=== PATIENT | female | born 1940 | race Caucasian/White ===

== ENCOUNTER 2017-10-25 18:12 | Observation (INO) | payer MEDICARE ==
[2017-10-25] MEDS ORDERED: NS 0.9% 1000 ML* 1,000 ML IV ONE (19:31)
[2017-10-25] MEDS ORDERED: methylPREDNISolone 125 MG* 2 ML VIAL IV ONE (19:31)
--- NOTE | 2017-10-25 19:33 | ED ---
Abdominal Pain/Female - HPI Summary HPI Summary: Pt is a 77 y/o female who presents to [facility] c/o constipation. She states she has lower abdomen discomfort, and feels constipated. Pt had two hard BMs today. Pt states she has had intermittent constipation since her colonoscopy two years ago, but has been worse the past few weeks. She denies any vomiting. She also has chronic SOB due to her COPD, and still smokes. - History of Current Complaint Chief Complaint: EDAbdPain Stated Complaint: CONSTIPATED/DIFFICULTY BREATHING Time Seen by Provider: 10/25/17 19:23 Hx Obtained From: Patient Onset/Duration: Gradual Onset, Lasting Weeks - 203, Still Present Timing: Intermittent Episode Lasting Severity Currently: None Pain Intensity: 0 Pain Scale Used: 0-10 Numeric Location: Discrete At: RLQ, Discrete At: LLQ Radiates: No Character: Other: - Discomfort Alleviating Factor(s): Nothing Associated Signs and Symptoms: Positive: Constipation, Other: - SOB. Negative: Nausea, Vomiting Allergies/Adverse Reactions: Allergies Allergy/AdvReac Type Severity Reaction Status Date / Time iron Allergy Unknown Verified 10/25/17 19:55 Reaction Details latex Allergy Unknown Verified 10/25/17 19:55 Reaction Details Penicillins Allergy Unknown Verified 10/25/17 19:55 Reaction Details PMH/Surg Hx/FS Hx/Imm Hx Endocrine/Hematology History: Reports: Hx Thyroid Disease - no meds Denies: Hx Anemia Cardiovascular History: Reports: Hx Hypercholesterolemia, Hx Hypertension, Hx Rheumatic Fever - as a child, Other Cardiovascular Problems/Disorders - LBBB Respiratory History: Reports: Hx Chronic Obstructive Pulmonary Disease (COPD), Other Respiratory Problems/Disorders GI History: Denies: Hx Jaundice Musculoskeletal History: Reports: Other Musculoskeletal History - RIght humerus fracture , apr 2015 Sensory History: Reports: Hx Cataracts - both eyes, Hx Contacts or Glasses - glasses Denies: Hx Hearing Aid Opthamlomology History: Reports: Hx Cataracts - both eyes, Hx Contacts or Glasses - glasses - Surgical History Surgery Procedure, Year, and Place: Bilat. breast benign biopsy. tonsillectomy. appendectomy with hysterectomy. left carotid endarerectomy 2003 Hx Anesthesia Reactions: No Infectious Disease History: No Infectious Disease History: Denies: Traveled Outside the [place] in Last 30 Days - Family History Known Family History: Positive: Hypertension, Other - [place] - Social History Alcohol Use: Occasionally Alcohol Amount: a beer a day maybe Hx Substance Use: No Substance Use Type: Reports: None Hx Tobacco Use: Yes Smoking Status (MU): Heavy Every Day Tobacco Smoker Amount Used/How Often: smoking since 18 years old 10-24 cigarettes a day Review of Systems Positive: Shortness Of Breath Positive: Other - Constipation. Negative: Vomiting, Nausea All Other Systems Reviewed And Are Negative: Yes Physical Exam - Summary Physical Exam Summary: Appearance: Well appearing, no pain distress Skin: warm, dry, reflects adequate perfusion Head/face: normal Eyes: EOMI, MAXIME ENT: normal Neck: supple, non-tender Respiratory: bilateral wheezes, breath sounds present Cardiovascular: RRR, pulses symmetrical Abdomen: RLQ and LLQ tenderness, soft Bowel: present Musculoskeletal: normal, strength/ROM intact Neuro: normal, sensory motor intact, A&Ox3 Triage Information Reviewed: Yes Vital Signs On Initial Exam: Initial Vitals Temp Pulse Resp BP Pulse Ox 98.4 F 111 20 91/55 93 10/25/17 18:33 10/25/17 18:33 10/25/17 18:33 10/25/17 18:33 10/25/17 18:33 Vital Signs Reviewed: Yes Diagnostics - Vital Signs Vital Signs Temp Pulse Resp BP Pulse Ox 10/25/17 18:33 98.4 F 111 20 91/55 93 - Laboratory Result Diagrams: 10/25/17 20:12 10/25/17 20:12 Lab Statement: Any lab studies that have been ordered have been reviewed, and results considered in the medical decision making process. - Radiology CXR Xray Interpretation: No Acute Changes - No acute infiltrate. Pending official radiology report. Radiology Interpretation Completed By: ED Physician - EKG 20:26 Cardiac Rate: Tachycardia - 106 bpm EKG Rhythm: Sinus Rhythm EKG Interpretation: LBBB Abdominal Pain Fem Course/Dx - Course Course Of Treatment: Pt is a 77 y/o female who presents to [facility] c/o constipation and lower abdomen discomfort. Pt states she has had intermittent constipation since her colonoscopy two years ago, but has been worse the past few weeks. She denies any vomiting. She also has chronic SOB due to her COPD, and still smokes. A physical exam revealed RLQ and LLQ tenderness and bilateral wheezes. A CXR was negative. An EKG revealed tachycardia at a rate of [address] A/P. Dx are COPD, abdominal pain, and constipation. Pt will be signed out to Dr. Allison. - Diagnoses Differential Diagnosis: Positive: Bowel Obstruction, Diverticulitis, Urinary Tract Infection Provider Diagnoses: COPD (chronic obstructive pulmonary disease), Abdominal pain, Constipation Discharge - Sign-Out/Discharge Documenting (check all that apply): Sign-Out Patient Signing out patient TO: Marquez Allison - Discharge Plan Referrals: Robbie Alexander MD [Primary Care Provider] - - Attestation Statements Document Initiated by Scribe: Yes Documenting Scribe: Renetta Robbins Provider For Whom Scribe is Documenting (Include Credential): Cesar Tripp MD Scribe Attestation: Renetta Del [place], scribed for Cesar Tripp MD on 10/25/17 at 2131. Scribe Documentation Reviewed: Yes Provider Attestation: The documentation as recorded by the Renetta spence accurately reflects the service I personally performed and the decisions made by me, Cesar Tripp MD
[2017-10-25] MEDS: Albuterol/Ipratropium NEB.SOL* Albuterol 2.5 MG/Ipratropium 0.5 MG 3 ML INH ONE (20:19)
[2017-10-25] MEDS ORDERED: Albuterol/Ipratropium NEB.SOL* Albuterol 2.5 MG/Ipratropium 0.5 MG 3 ML ONE (20:21)
[2017-10-25 20:26] LABS: Hematocrit 44 % (35-47); Hemoglobin 14.7 g/dl (12.0-16.0); Mean Corpuscular HGB Conc 33 g/dl (31-36); Mean Corpuscular Hemoglobin 32 pg (27-31); Mean Corpuscular Volume 98 fL (80-97); Mean Platelet Volume 8.2 um3 (7.4-10.4); Platelet Count 422 10^3/ul (150-450); Red Blood Count 4.53 10^6/ul (4.00-5.40); Red Cell Distribution Width 15 % (10.5-15); White Blood Count 15.3 10^3/ul (3.5-10.8)
[2017-10-25 20:35] LABS: INR 0.81 (0.77-1.02)
[2017-10-25 20:38] LABS: EGFR Non-African American 72.9 (>60)
[2017-10-25 20:58] LABS: ABS Basophils 0.1 10^3/ul (0-0.2); ABS Eosinophils 0 10^3/ul (0-0.6); ABS Lymphocytes 1.9 10^3/ul (1.0-4.8); ABS Monocytes 1.6 10^3/ul (0-0.8); ABS Neutrophils 11.6 10^3/ul (1.5-7.7); ABS Nucleated RBC 0 10^3/ul; Eosinophil % 0.2 % (0-6); Lymphocyte % 12.7 % (25-47); Nucleated Red Blood Cells % 0
--- NOTE | 2017-10-25 22:16 | ED ---
Progress - Progress Note Progress Note: Patient was signed out to Dr. Marquez Allison via Dr. Tripp, awaiting CT A/P, pending disposition on 10/25/[address] A/P: IMPRESSION: 1. No acute findings in the abdomen or pelvis. 2. Colonic diverticulosis without evidence for diverticulitis. 3. High-density foci in the renal collecting systems bilaterally, which may represent nonobstructive renal calculi or contrast material. 4. Fatty liver. ED PHYSICIAN REVIEWED THIS RADIOLOGY REPORT. Re-Evaluation - Re-Evaluation First Eval Re-Evaluation Time: 02:35 Change: Unchanged Comment: Patient still has wheezing. HR is 110, O2 saturation of 92%. Course/Dx - Course Course Of Treatment: A 77 y/o female presents to ED c/o constipation. A CT A/P revealed 1. No acute findings in the abdomen or pelvis. 2. Colonic diverticulosis without evidence for diverticulitis. 3. High-density foci in the renal collecting systems bilaterally, which may represent nonobstructive renal calculi or contrast material. 4. Fatty liver. Blood work and UA was also done. In the ED course, the patient recieved Duoneb, Omnipaque, Solu-Medrol , Magnesium Sulfate, Ventolin and IV fluids. During reevaluation, the patient still has wheezing. HR is 110, O2 saturation of 92%. Patient care was discussed with hospitalist, Dr. Petit, who accepts patient for admission. Patient will be admitted with a diagnosis of COPD, dehydration and abdominal pain. Patient is agreeable with this plan. - Diagnoses Provider Diagnoses: COPD (chronic obstructive pulmonary disease), Abdominal pain, Dehydration - Provider Notifications Discussed Care Of Patient With: Laura Petit Time Discussed With Above Provider: 02:43 Instructed by Provider To: Other - Accepts patient for admission. Discharge - Sign-Out/Discharge Documenting (check all that apply): Patient Departure - ADMIT - Discharge Plan Condition: Stable Disposition: ADMITTED TO [facility] Referrals: Robbie Alexander MD [Primary Care Provider] - - Attestation Statements Document Initiated by Scribe: Yes Documenting Scribe: Socrates Garcia Provider For Whom Scribe is Documenting (Include Credential): Marquez Allison Scribjorge Attestation: ISocrates, scribed for Marquez Allison on 10/26/17 at 0243.
[2017-10-25] MEDS ORDERED: Iohexol 300* (CONTRAST) 10 ML SDV IV ONE (22:26)
--- NOTE | 2017-10-26 00:08 | RAD ---
EXAM: CT Abdomen and Pelvis With Intravenous Contrast CLINICAL HISTORY: 77 years old, female; Abdominal pain; Flank; Left lower quadrant (llq); Prior surgery; Surgery date: 1-6 months; Surgery type: Appendectomy; Additional info: Llq tenderness/diverticulitis TECHNIQUE: Axial computed tomography images of the abdomen and pelvis with intravenous contrast. All CT scans at this facility use at least one of these dose optimization techniques: automated exposure control; mA and/or kV adjustment per patient size (includes targeted exams where dose is matched to clinical indication); or iterative reconstruction. Coronal and sagittal reformatted images were created and reviewed. CONTRAST: 63 mL of OMNIPAQUE 300 administered intravenously. COMPARISON: No relevant prior studies available. FINDINGS: Lung bases: There are centrilobular emphysematous changes in the lung bases. Heart: No cardiomegaly or pericardial effusion is noted. ABDOMEN: Liver: There is fatty infiltration of the liver, with increased fatty liver deposition adjacent to the falciform ligament. There is a 5 mm cyst in the superior lateral segment 2 of the left hepatic lobe. The contour of the liver is smooth. No hepatomegaly is noted. Gallbladder and bile ducts: No calcifications are seen in the gallbladder to suggest calculi. There is no gallbladder wall thickening, pericholecystic fluid, or pericholecystic inflammatory changes. No dilation of the intrahepatic or extrahepatic bile ducts is noted. Pancreas: Normal. The main pancreatic duct is normal in caliber. Spleen: Normal. No splenomegaly is noted. Adrenals: Normal. Kidneys and ureters: There is a 7 mm simple cyst in the superior pole of the right kidney and the simple cyst in the inferior pole of the right kidney. There are high-density foci in the renal collecting systems bilaterally, which may represent renal calculi or contrast material. No stones are noted in the ureters. There is no hydronephrosis or hydroureter. Stomach and bowel: There is colonic diverticulosis without evidence for diverticulitis. There is no evidence for a bowel obstruction, colitis, pneumatosis intestinalis, intussusception, volvulus, or perforated viscus. PELVIS: Appendix: The appendix has been removed. Bladder: The distended urinary bladder is normal in appearance. No stones or masses are seen in the bladder. The contour of the bladder is normal. Reproductive: The uterus has been removed. The ovaries are unremarkable. ABDOMEN and PELVIS: Intraperitoneal space: No free air or free fluid. Bones/joints: The imaged bony structures are intact. There is no suspicious osteolytic or osteoblastic lesion. There are degenerative changes in the lumbar spine and both sacroiliac joints. The bones have a demineralized appearance. Soft tissues: Unremarkable. There is no hernia. Vasculature: The abdominal aorta is normal in caliber. There are extensive atherosclerotic calcifications. Lymph nodes: No lymphadenopathy. IMPRESSION: 1. No acute findings in the abdomen or pelvis. 2. Colonic diverticulosis without evidence for diverticulitis. 3. High-density foci in the renal collecting systems bilaterally, which may represent nonobstructive renal calculi or contrast material. 4. Fatty liver.
[2017-10-26 02:14] LABS: Urine Appearance Clear; Urine Blood 1+ (Negative); Urine Color Straw; Urine Ketones 2+ (Negative); Urine Protein Negative (Negative); Urine Red Blood Cell Trace(0-2/hpf) (Absent); Urine Specific Gravity 1.026 (1.010-1.030); Urine Urobilinogen Negative (Negative); Urine White Blood Cell Absent (Absent)
[2017-10-26] MEDS ORDERED: Magnesium Sulfate 2 GM IV* 2 GM/50 ML BAG IVPB ONE (02:41)
[2017-10-26] MEDS ORDERED: Albuterol 2.5 MG/3 ML NEB.SOL* (0.083%) INH PRN ×2 (02:41→03:09)
[2017-10-26] MEDS ORDERED: NS 0.9% 1000 ML* 1,000 ML IV ONE (02:44)
[2017-10-26] MEDS: Albuterol/Ipratropium NEB.SOL* Albuterol 2.5 MG/Ipratropium 0.5 MG 3 ML INH ONE (03:01)
[2017-10-26] MEDS ORDERED: Acetaminophen TAB* 325 MG PO PRN (03:09)
[2017-10-26] MEDS ORDERED: Ondansetron INJ* 2 MG/ML VIAL IV PRN (03:09)
[2017-10-26] MEDS ORDERED: NS 0.9% 1000 ML* 1,000 ML IV SCH (03:15)
[2017-10-26] MEDS ORDERED: Heparin VIAL(*) 5000 UNITS/ML VIAL (FIVE THOUSAND) SUBCUT SCH (06:00)
[2017-10-26] MEDS ORDERED: amLODIPine TAB* 5 MG PO SCH (06:00)
[2017-10-26 06:36] LABS: ABS Basophils 0 10^3/ul (0-0.2); ABS Eosinophils 0 10^3/ul (0-0.6); ABS Lymphocytes 0.4 10^3/ul (1.0-4.8); ABS Monocytes 0.1 10^3/ul (0-0.8); ABS Neutrophils 6.2 10^3/ul (1.5-7.7); ABS Nucleated RBC 0 10^3/ul; Eosinophil % 0 % (0-6); Hematocrit 39 % (35-47); Hemoglobin 13.5 g/dl (12.0-16.0); Lymphocyte % 5.4 % (25-47); Mean Corpuscular HGB Conc 34 g/dl (31-36); Mean Corpuscular Hemoglobin 33 pg (27-31); Mean Corpuscular Volume 97 fL (80-97); Nucleated Red Blood Cells % 0; Platelet Count 334 10^3/ul (150-450); Red Blood Count 4.09 10^6/ul (4.00-5.40); Red Cell Distribution Width 14 % (10.5-15); White Blood Count 6.7 10^3/ul (3.5-10.8)
[2017-10-26 06:50] LABS: EGFR Non-African American 97.2 (>60)
[2017-10-26] MEDS: Albuterol/Ipratropium NEB.SOL* Albuterol 2.5 MG/Ipratropium 0.5 MG 3 ML INH SCH ×2 (06:59→08:06)
[2017-10-26 07:47] VITALS: BP 132/48
--- NOTE | 2017-10-26 07:56 | PN ---
Subjective - Subjective Reason for Note: Discharge Note History: DISCHARGE SUMMARY I have reviewed her presentation with Brooklyn Ha and with the ED note. She has had increasing constipation for the past few weeks and came to the ED as she was unable to pass stool. She has found this has also exacerbated her COPD. She has not had a URI recently. She notes that the hot weather is bothering her. However, she continues to smoke. \\ The CT scan prep caused several explosive bowel movements and she now has an empty colon. She no longer has any pain in her abdomen and is hungry. She received breathing treatments/steroids and is not dyspneic this morning. She is afebrile, she coughs when she is lying flat but is not bringing up more sputum than usual and has no hemoptysis Active Problems: Active Problems COPD with acute exacerbation (Acute) J44.1 Constipation (Acute) K59.00 Emphysema lung (Acute) J43.9 Current Medications: Current Medications Acetaminophen (Tylenol Tab*) 650 mg PO Q4H PRN PRN Reason: FEVER/PAIN Albuterol (Ventolin 2.5 Mg/3 Ml Neb.Meera*) 2.5 mg INH Q20M PRN PRN Reason: SHORTNESS OF BREATH Albuterol (Ventolin 2.5 Mg/3 Ml Neb.Meera*) 2.5 mg INH Q2H PRN PRN Reason: SOB/WHEEZING Albuterol/Ipratropium (Duoneb (Albuterol 2.5 Mg/Ipratropium 0.5 Mg)) 1 neb INH Q4H [facility] Last Admin: 10/26/17 06:59 Dose: Not Given Amlodipine Besylate (Norvasc Tab*) 10 mg PO 0600 [facility] Last Admin: 10/26/17 04:30 Dose: 10 mg Aspirin (Aspirin Ec Tab*) 81 mg PO 1000 [facility] Docusate Sodium (Colace Cap*) 100 mg PO BID [facility] Heparin Sodium (Porcine) (Heparin Vial(*)) 5,000 units SUBCUT Q8HR [facility] Last Admin: 10/26/17 04:30 Dose: 5,000 units Hydrochlorothiazide (Hydrodiuril Tab*) 12.5 mg PO 1000 [facility] Mometasone Furoate/Formoterol Fumar (Dulera 200/5 Mdi*) 2 puff INH BID [facility] Ondansetron HCl (Zofran Inj*) 4 mg IV Q6H PRN PRN Reason: NAUSEA Prednisone (Deltasone Tab*) 60 mg PO DAILY [facility] Ramipril (Altace Cap*) 10 mg PO QPM [facility] Home Medications: Home Medications Medication Instructions Recorded Confirmed Type Cholecalciferol (Vitamin D3) 1,000 unit PO 1000 06/02/15 10/25/17 History [Vitamin D3] Cyanocobalamin (Vitamin B-12) 500 mcg SL EVERY OTHER DAY 06/02/15 10/25/17 History [B-12] Hydrochlorothiazide TAB* 12.5 mg PO 1000 06/02/15 10/25/17 History [Hydrodiuril TAB*] Levalbuterol HFA INHALER* [Xopenex 1 puff INH Q6H PRN 06/02/15 10/25/17 History Hfa Inhaler*] Lovastatin [Altoprev] 20 mg PO 1000 06/02/15 10/25/17 History Ramipril CAP* [Altace CAP*] 10 mg PO QPM 06/02/15 10/25/17 History Amlodipine Besylate [Norvasc 10 mg 10 mg PO 0600 12/22/16 10/25/17 History tab] Misc Natural Products [Lutein 20] 1 cap PO 1400 12/22/16 10/25/17 History Aspirin [Aspirin 81 MG TAB] 81 mg PO 1000 01/05/17 10/25/17 History Allergies: Allergies Allergy/AdvReac Type Severity Reaction Status Date / Time iron Allergy Unknown Verified 10/25/17 19:55 Reaction Details latex Allergy Unknown Verified 10/25/17 19:55 Reaction Details Penicillins Allergy Unknown Verified 10/25/17 19:55 Reaction Details Objective - Vital Signs Vital Signs: Vital Signs 10/25/17 10/25/17 10/25/17 18:33 19:26 19:27 Temperature 98.4 F Pulse Rate 111 118 Respiratory 20 20 28 Rate Blood Pressure 91/55 107/90 (mmHg) O2 Sat by Pulse 93 94 Oximetry 10/25/17 10/25/17 10/25/17 20:02 20:23 20:26 Temperature Pulse Rate 110 102 105 Respiratory 9 20 25 Rate Blood Pressure 187/87 184/95 (mmHg) O2 Sat by Pulse 92 100 100 Oximetry 10/25/17 10/25/17 10/25/17 21:05 21:06 21:26 Temperature Pulse Rate 117 108 Respiratory 8 23 22 Rate Blood Pressure 181/105 160/78 (mmHg) O2 Sat by Pulse 92 93 Oximetry 10/25/17 10/25/17 10/25/17 21:59 22:00 22:26 Temperature Pulse Rate 103 103 98 Respiratory 26 22 23 Rate Blood Pressure 159/133 153/76 (mmHg) O2 Sat by Pulse 91 94 88 Oximetry 10/25/17 10/25/17 10/25/17 22:56 23:00 23:56 Temperature Pulse Rate 99 100 97 Respiratory 27 22 22 Rate Blood Pressure 151/70 142/83 (mmHg) O2 Sat by Pulse 91 92 89 Oximetry 10/26/17 10/26/17 10/26/17 00:00 00:02 00:26 Temperature Pulse Rate 117 Respiratory 28 23 27 Rate Blood Pressure 178/83 (mmHg) O2 Sat by Pulse 87 Oximetry 10/26/17 10/26/17 10/26/17 00:56 01:00 01:26 Temperature Pulse Rate 100 102 106 Respiratory 21 14 22 Rate Blood Pressure 143/71 136/80 (mmHg) O2 Sat by Pulse 92 90 92 Oximetry 10/26/17 10/26/17 10/26/17 01:56 02:00 02:26 Temperature Pulse Rate 103 94 108 Respiratory 33 22 24 Rate Blood Pressure 159/80 153/82 (mmHg) O2 Sat by Pulse 94 93 94 Oximetry 10/26/17 10/26/17 10/26/17 02:56 03:00 03:01 Temperature Pulse Rate 111 111 98 Respiratory 32 21 16 Rate Blood Pressure 157/86 (mmHg) O2 Sat by Pulse 93 92 99 Oximetry 10/26/17 10/26/17 10/26/17 03:18 03:26 04:10 Temperature 98.1 F 97.5 F Pulse Rate 98 100 Respiratory 16 20 18 Rate Blood Pressure 157/86 167/77 123/53 (mmHg) O2 Sat by Pulse 98 94 Oximetry 10/26/17 10/26/17 04:12 06:17 Temperature 97.5 F 98.2 F Pulse Rate 100 95 Respiratory 18 17 Rate Blood Pressure 123/53 132/48 (mmHg) O2 Sat by Pulse 94 92 Oximetry - Intake and Output Intake and Output: Intake & Output 10/23/17 10/24/17 10/25/17 10/26/17 11:59 11:59 11:59 11:59 Intake Total 2290 Balance 2290 Weight 104 lb Intake: IV Fluids 0 Oral 240 Other: Estimated Void Large Date of Last Bowel 10/26/16 Movement # Bowel Movements 1 Estimated Stool Amount Medium # Voids 1 ADLs: Meal Record Start: 10/26/17 04: 07 Freq: DAILY@0900,1400,1800 Status: Active Protocol: Created 10/26/17 04:07 System (Rec: 10/26/17 04:07 System [id number]) Intake and Output Start: 10/25/17 18: 40 Freq: Status: Active Protocol: Created 10/25/17 18:40 System (Rec: 10/25/17 18:40 System [id number]) Intake and Output Start: 10/26/17 04: 07 Freq: DAILY@0600,1400,2200 Status: Active Protocol: Created 10/26/17 04:07 System (Rec: 10/26/17 04:07 System [id number]) Document 10/26/17 06:00 [id number] (Rec: 10/26/17 06:29 [id number]) - Physical Exam General Physical Exam Comment: She is warm and well perfused. She is not in any respiratory distress. She is breathing room air. General: No Cyanosis, No Anemia, No Jaundice, No Clubbing Lungs and Chest: Yes: Chest Expansion Full - over expanded, Chest Expansion Symetrica, Percussion Note Resonant - hyperresonant. No: Vessicular Breath Sounds - emphysematous breath sounds, Crackles, Wheezes, Respiratory Distress, Use of Accessory Muscles Heart Rate and Rhythm: Regular - hyperdynamic Additional Cardiovascular: Yes: Normal Heart Sounds. No: Heart Murmur, Pedal Edema Abdominal Exam: Yes: Soft, Bowel Sounds Present. No: Distention, Abdominal Mass , Abdominal Tenderness, Guarding, Rebound Tenderness - Neuro Orientation: A/O x3 Psychiatric: Anxious Speech: Normal Results - Results Lab Results: Laboratory Results - last 24 hr 10/25/17 10/25/17 10/25/17 20:12 20:12 20:12 WBC 15.3 H RBC 4.53 Hgb 14.7 Hct 44 MCV 98 H MCH 32 H MCHC 33 RDW 15 Plt Count 422 MPV 8.2 Neut % (Auto) 75.7 Lymph % (Auto) 12.7 L [place] % (Auto) 10.6 H Eos % (Auto) 0.2 Baso % (Auto) 0.8 Absolute Neuts (auto) 11.6 H Absolute Lymphs (auto) 1.9 Absolute Monos (auto) 1.6 H Absolute Eos (auto) 0 Absolute Basos (auto) 0.1 Absolute Nucleated RBC 0 Nucleated RBC % 0 INR (Anticoag Therapy) 0.81 APTT 28.4 Sodium 137 Potassium 4.1 Chloride 96 L Carbon Dioxide 20 L Anion Gap 21 H BUN 20 Creatinine 0.77 Est GFR ( Amer) 88.2 Est GFR (Non-Af Amer) 72.9 BUN/Creatinine Ratio 26.0 H Glucose 97 Lactic Acid Calcium 10.7 H Total Bilirubin 1.00 AST 31 ALT 19 Alkaline Phosphatase 74 Troponin I 0.03 B-Natriuretic Peptide Total Protein 7.8 Albumin 4.5 Globulin 3.3 Albumin/Globulin Ratio 1.4 Lipase 20 Urine Color Urine Appearance Urine pH Ur Specific [place] Urine Protein Urine Ketones Urine Blood Urine Nitrate Urine Bilirubin Urine Urobilinogen Ur Leukocyte Esterase Urine WBC (Auto) Urine RBC (Auto) Urine Bacteria Urine Glucose 10/25/17 10/26/17 10/26/17 20:12 01:50 03:35 WBC RBC Hgb Hct MCV MCH MCHC RDW Plt Count MPV Neut % (Auto) Lymph % (Auto) [place] % (Auto) Eos % (Auto) Baso % (Auto) Absolute Neuts (auto) Absolute Lymphs (auto) Absolute Monos (auto) Absolute Eos (auto) Absolute Basos (auto) Absolute Nucleated RBC Nucleated RBC % INR (Anticoag Therapy) APTT Sodium Potassium Chloride Carbon Dioxide Anion Gap BUN Creatinine Est GFR ( Amer) Est GFR (Non-Af Amer) BUN/Creatinine Ratio Glucose Lactic Acid 1.3 Calcium Total Bilirubin AST ALT Alkaline Phosphatase Troponin I B-Natriuretic Peptide 171 H Total Protein Albumin Globulin Albumin/Globulin Ratio Lipase Urine Color Straw Urine Appearance Clear Urine pH 5.0 Ur Specific [place] 1.026 Urine Protein Negative Urine Ketones 2+ A Urine Blood 1+ A Urine Nitrate Negative Urine Bilirubin Negative Urine Urobilinogen Negative Ur Leukocyte Esterase Negative Urine WBC (Auto) Absent Urine RBC (Auto) Trace(0-2/hpf) Urine Bacteria Absent Urine Glucose Negative 10/26/17 10/26/17 06:09 06:09 WBC 6.7 RBC 4.09 Hgb 13.5 Hct 39 MCV 97 MCH 33 H MCHC 34 RDW 14 Plt Count 334 MPV 8.0 Neut % (Auto) 93.3 H Lymph % (Auto) 5.4 L [place] % (Auto) 1.2 Eos % (Auto) 0 Baso % (Auto) 0.1 Absolute Neuts (auto) 6.2 Absolute Lymphs (auto) 0.4 L Absolute Monos (auto) 0.1 Absolute Eos (auto) 0 Absolute Basos (auto) 0 Absolute Nucleated RBC 0 Nucleated RBC % 0 INR (Anticoag Therapy) APTT Sodium 136 Potassium 3.6 Chloride 101 Carbon Dioxide 23 Anion Gap 12 H BUN 12 Creatinine 0.60 Est GFR ( Amer) 117.6 Est GFR (Non-Af Amer) 97.2 BUN/Creatinine Ratio 20.0 Glucose 225 H Lactic Acid Calcium 9.0 Total Bilirubin AST ALT Alkaline Phosphatase Troponin I B-Natriuretic Peptide Total Protein Albumin Globulin Albumin/Globulin Ratio Lipase Urine Color Urine Appearance Urine pH Ur Specific [place] Urine Protein Urine Ketones Urine Blood Urine Nitrate Urine Bilirubin Urine Urobilinogen Ur Leukocyte Esterase Urine WBC (Auto) Urine RBC (Auto) Urine Bacteria Urine Glucose Radiology Results: Patient Name: ZACH HA Medical Record#: [id number] Ordering Physician: Cesar Tripp MD Acct.#: [id number] : 1940 Age: 77 Sex: F Location: EMERGENCY DEPARTMENT Exam Date: 10/25/171932 ADM Status: REG ER Order Information: CT ABD/PEL W Accession Number: [id number] CPT: 22066 EXAM: CT Abdomen and Pelvis With Intravenous Contrast CLINICAL HISTORY: 77 years old, female; Abdominal pain; Flank; Left lower quadrant (llq); Prior surgery; Surgery date: 1-6 months; Surgery type: Appendectomy; Additional info: Llq tenderness/diverticulitis TECHNIQUE: Axial computed tomography images of the abdomen and pelvis with intravenous contrast. All CT scans at this facility use at least one of these dose optimization techniques: automated exposure control; mA and/or kV adjustment per patient size (includes targeted exams where dose is matched to clinical indication); or iterative reconstruction. Coronal and sagittal reformatted images were created and reviewed. CONTRAST: 63 mL of OMNIPAQUE 300 administered intravenously. COMPARISON: No relevant prior studies available. FINDINGS: Lung bases: There are centrilobular emphysematous changes in the lung bases. Heart: No cardiomegaly or pericardial effusion is noted. ABDOMEN: Liver: There is fatty infiltration of the liver, with increased fatty liver deposition adjacent to the falciform ligament. There is a 5 mm cyst in the superior lateral segment 2 of the left hepatic lobe. The contour of the liver is smooth. No hepatomegaly is noted. Gallbladder and bile ducts: No calcifications are seen in the gallbladder to suggest calculi. There is no gallbladder wall thickening, pericholecystic fluid, or pericholecystic inflammatory changes. No dilation of the intrahepatic or extrahepatic bile ducts is noted. Pancreas: Normal. The main pancreatic duct is normal in caliber. Spleen: Normal. No splenomegaly is noted. Adrenals: Normal. Kidneys and ureters: There is a 7 mm simple cyst in the superior pole of the right kidney and the simple cyst in the inferior pole of the right kidney. There are high-density foci in the renal collecting systems bilaterally, which may represent renal calculi or contrast material. No stones are noted in the ureters. There is no hydronephrosis or hydroureter. Stomach and bowel: There is colonic diverticulosis without evidence for diverticulitis. There is no evidence for a bowel obstruction, colitis, pneumatosis intestinalis, intussusception, volvulus, or perforated viscus. PELVIS: Appendix: The appendix has been removed. Bladder: The distended urinary bladder is normal in appearance. No stones or masses are seen in the bladder. The contour of the bladder is normal. This report is only to be considered final once signed by the Provider(s) as displayed in the "<Electronically Signed by >" field (s). Absence of a signature indicates the report is in a draft status and still needs to be finalized. In the event this document was created by someone other than the signing Provider, the individual initiating the document will be listed in the "Entered by:" or "Dictated by:" sarkar. 1 of 2 [facility] Patient Name:ZACH HA MR:[id number] : 1940 Reproductive: The uterus has been removed. The ovaries are unremarkable. ABDOMEN and PELVIS: Intraperitoneal space: No free air or free fluid. Bones/joints: The imaged bony structures are intact. There is no suspicious osteolytic or osteoblastic lesion. There are degenerative changes in the lumbar spine and both sacroiliac joints. The bones have a demineralized appearance. Soft tissues: Unremarkable. There is no hernia. Vasculature: The abdominal aorta is normal in caliber. There are extensive atherosclerotic calcifications. Lymph nodes: No lymphadenopathy. IMPRESSION: 1. No acute findings in the abdomen or pelvis. 2. Colonic diverticulosis without evidence for diverticulitis. 3. High-density foci in the renal collecting systems bilaterally, which may represent nonobstructive renal calculi or contrast material. 4. Fatty liver. <Electronically signed by Kip Feldman MD in OV> 10/26/177 Dictated By: Kip Feldman MD Dictated Date/Time: 10/26/177 Transcribed Date/Time: Copy to: CC:Robbie Alexander MD; Cesar Tripp MD Imaging - [facility] - [facility] - [facility] [address] [place] [address] ph [phone]) ph ([phone]) ph ([phone]) Report of CXR unavailable I reviewed images - emphysematous chest-Xray (AP) with some interstitial markings. No pneumonia. Unchanged from previous film 04/26/15 Assessment - Problem List Assessment: Patient Problems COPD with acute exacerbation (Acute) Constipation (Acute) Emphysema lung (Acute) Essential hypertension (Chronic) H/O carotid endarterectomy (Chronic) Hypercholesteremia (Chronic) Left bundle branch block (Chronic) Tobacco abuse (Chronic) Plan: Constipation (Acute) The preparation for the CT abdo/pelvis acted as a cathartic and she now has an empty colon. I discussed a bowel regiment - psyllium 1 tbs bid and miralax 17 gram if she has not had a BM for 24 hours. There is no evidence of any acute abdominal pathology COPD with acute exacerbation (Acute) She has an exaerbation of her COPD. This may be due to the hot/humid weather. I am sending her home on a reducing schedule of prednisone: Prednisone 40 mg 2 days, 20 mg 2 days, 10 mg 2 days, 5 mg 2 days then stop. Emphysema lung (Acute) This is exacerbated and likely will be life-limiting. Tobacco abuse (Chronic) I counseled her about tobacco cessation and suggested a Day target to stop altogether. I counseled for 5 mins on this Essential hypertension (Chronic) ongoing H/O carotid endarterectomy (Chronic) Hypercholesteremia (Chronic) Left bundle branch block (Chronic) I discussed the above with the patient and I am discharging her home.
--- NOTE | 2017-10-26 08:07 | RAD ---
INDICATION: Short of breath COMPARISON: April 25, 2015 TECHNIQUE: An AP portable view obtained at 1945 hours is submitted. FINDINGS: Bones/Soft Tissues: There are no acute bony findings. Cardiomediastinal: The cardiomediastinal silhouette is normal. Lungs: There is hyperinflation with mild chronic interstitial changes Pleura: There are no pleural effusions. There is minor biapical scarring Other: None IMPRESSION: HYPERINFLATION. NO ACTIVE DISEASE. R0
[2017-10-26] MEDS ORDERED: Docusate CAP* 100 MG PO SCH (09:00)
[2017-10-26] MEDS ORDERED: predniSONE TAB* 20 MG PO SCH (09:00)
[2017-10-26] MEDS ORDERED: Mometasone/Formoter 200/5 MDI INH SCH (09:00)
[2017-10-26] MEDS ORDERED: Aspirin EC TAB* 81 MG TAB.EC PO SCH (10:00)
[2017-10-26] MEDS ORDERED: Hydrochlorothiazide TAB* 25 MG PO SCH (10:00)
--- NOTE | 2017-10-26 12:34 | HP ---
CC: Dr. Robbie Alexander* HISTORY AND PHYSICAL: DATE OF ADMISSION: 10/26/17. PRIMARY CARE PROVIDER: Dr. Robbie Alexander. ATTENDING PHYSICIAN WHILE IN THE HOSPITAL: Laura Petit MD * (report dictated by Aashish Castellanos NP). CHIEF COMPLAINT: 1. Lower abdominal pain. 2. Shortness of breath. HISTORY OF PRESENT ILLNESS: Mrs. Armstrong is a 77-year-old female patient, she carries a history of COPD, hypertension, hyperlipidemia, and history of diverticulosis, complications of diverticular bleed previously. She is coming into the ED today. She says ever since having a diverticular bleed, she has had trouble with her bowels intermittently. She says, however, over the weekend she has been having hard stools. She has been having had difficulty going, she has been straining. Nothing seems to be helping. She has had some lower abdominal cramping. She had no blood in the stool, no tarry stools that she said every time she went it was small amount. Subsequently, she has noted though over the weekend too that she has had progressive worsening shortness of breath. She feels that it is probably from her straining so much. She tried to have a good bowel movement. She says the pain and the discomfort was getting worse. She was very concerned because she was not having a bowel movement. She was also getting short of breath. She had been coughing, but really not bringing up anything. No fevers or chills. No chest pain. She says that she has been noticing that she was more and more short of breath particularly with exertion. So, she came into the ED today to be evaluated. She says the cramping was mostly in her abdominal area. She says she is feeling better now, though after drinking p.o. contrast for her CT scan, which she got in the ER and has had 4 bowel movements since being down here. However, it was noted that despite breathing treatment she was continuing to have some expiratory wheezing. We were asked to evaluate for admission. PAST MEDICAL HISTORY: Significant for: 1. COPD. 2. Hypertension. 3. Hyperlipidemia. 4. Diverticulosis. 5. Diverticular disease. PAST SURGICAL HISTORY: 1. She has had a hysterectomy. 2. Appendectomy and tonsillectomy. 3. Left carotid endarterectomy. MEDICATIONS: Home medications include: 1. Amlodipine 10 mg p.o. daily. 2. Lovastatin 20 mg p.o. daily. 3. Xopenex 1 puff inhaler q.6 hours as needed. 4. Hydrochlorothiazide 12.5 mg p.o. daily. 5. B12 500 mcg sublingual every other day. 6. Vitamin D3 1000 units p.o. daily. 7. Aspirin 81 mg daily. 8. Altace 10 mg daily. 9. Lutein 1 capsule p.o. daily. ALLERGIES TO MEDICATIONS: Include IRON, LATEX, PENICILLIN. FAMILY HISTORY: Her mother had a history of breast cancer and father had a history of bladder cancer. SOCIAL HISTORY: She is a continued smoker. She is smoking about a pack a day. She does have a shot of whisky at night. She has been smoking for about 60 years. Surrogate decision maker is her niece, Kaykay. REVIEW OF SYSTEMS: There is no documented fever. She is denying having any significant weight change. There was no double vision. She denies having any ear discharges. No rhinorrhea. There is no sore throat or thyroid enlargement. She denied having any chest pain. There is no orthopnea. There is no nocturnal dyspnea. There is no nausea, no vomiting, no dysuria, no frequency, no seizure, no loss of conscious, no pruritus, and no skin ulcerations. Review of 14 systems completed, all others negative. PHYSICAL EXAMINATION GENERAL: At this time, Mrs. Armstrong is a 77-year-old female patient. She is chronically ill appearing. She is sitting in the ED stretcher. She does not appear to be in any acute distress. VITAL SIGNS: Blood pressure 157/86, pulse of 110, respirations 24, O2 saturation is 94%, temperature when she presented was 98.4. HEENT: Head: Atraumatic, normocephalic. Eyes: EOMs are intact. Sclerae anicteric and not pale. Throat: Oral mucosa appears to be dry. No oropharyngeal erythema. NECK: Supple. LUNGS: Diminished in the bases. She did have expiratory wheezes in the bases. She had equal diaphragmatic expansion. HEART: Sounds S1, S2. She is tachycardic. ABDOMEN: Soft, flat, nontender. Bowel sounds were present. EXTREMITIES: Pulses were 2+ throughout. She had no peripheral edema. She is moving all four extremities with 5/5 strength. NEUROLOGIC: The patient is awake. She is alert. She is oriented x3. She had no gross focal deficits. SKIN: Intact. DIAGNOSTIC STUDIES/LAB DATA: Labs today revealed a WBC of 15.3, RBC of 4.53, hemoglobin 14.7, hematocrit of 44, and platelet count of 422. The INR was 0.81. PTT of 28.4. Sodium was 137, potassium 4.1, chloride of 96, bicarb 20. Her BUN was 20, creatinine 0.77, glucose of 97, calcium was 9.7. Looking back, she has been elevated previously. Total bilirubin 1.0, AST 31, ALT 19, alk phos 74, troponin 0.03, BNP 171, albumin of 4.5, lipase normal. Urine was obtained showed 3+ ketones, 1+ blood. She had abdomen and pelvis CT obtained today, which revealed, impression, no acute finding of the abdomen and pelvis. Colonic diverticulosis without evidence of diverticulitis, high density foci in the renal collecting systems bilaterally, which may represent nonobstructing calculi or contrast material for fatty liver. She had an EKG today, which showed sinus tachycardia with a left bundle-branch block. She has had that previously. Heart rate today was 106. We look back to the previous EKG, it appears to be unchanged. Divorce Attorney rate is slower. She did have a chest x-ray obtained today. Under my impression , I do not appreciate any infiltrates or effusions. She did have findings consistent with COPD. Old medical records reviewed. ASSESSMENT AND PLAN: Mrs. Armstrong is a 77-year-old female patient coming into the emergency department today with complaints of lower abdominal pain. She was feeling constipated over the last couple of days and has progressively worsening shortness of breath. She will be admitted under observatory status for: 1. Constipation. This appears to be resolved now. She has had 4 bowel movements. I will continue her on Colace 100 mg p.o. b.i.d. I will continue to monitor. CT abdomen was benign. 2. Chronic obstructive pulmonary disease with exacerbation. Again, she was wheezing on exam down here in the ER. She required another additional treatment. So, I will continue with q.4 hour DuoNeb p.r.n. albuterol. I have ordered 60 of prednisone daily, Dulera, holding off on antibiotics at this point , as there is no infiltrate on exam and her CT of abdomen and pelvis was negative. I will just get sputum culture if possible and I will get Legionella and Streptococcus pneumoniae antigen. I will also check blood cultures and lactic acid. 3. Element of systemic inflammatory response syndrome. Again, I do note that she is tachycardic, but she is not hypotensive. She is not having any altered mental status. There are no signs of end-organ damage. I do note that she does have elevated white count. She has had this previously though my plan would be to obtain culture her. If she spikes fever, start her on antibiotics. Then, I am going to go ahead and hydrate the patient and we will continue to follow her. 4. Hypertension. Continue medications as prescribed. 5. Hyperlipidemia. Continue her lovastatin. 6. Diverticulosis. She follows with PCP. 7. DVT prophylaxis. I have ordered heparin subcu. 8. Code status. She is a full code. 9. Fluids, electrolyte, nutrition. She can have a regular diet. TIME SPENT: Time spent on the admission, 60 minutes, greater than half the time spent [id number] with the patient, obtaining my history and physical, other half time spent going over the plan of care with the patient and implementing the plan of care. I discussed the plan of care with my attending, Dr. Petit, she is in agreement. AASHISH CASTELLANOS NP [id number]/[facility] #: [id number] MTDGlenn
[2017-10-26] MEDS ORDERED: Ramipril CAP* 10 MG PO SCH (18:00)
== END 2017-10-26 11:00 | disposition home or self-care (01) ==
LOC: ED 18:12 → MED 10-26 03:06
PROVIDERS: ADMIT Pediatrics; ATTEND Internal Medicine
DX: J44.1 Chronic obstructive pulmonary disease with (acute) exacerbation (principal); R10.30 Lower abdominal pain, unspecified; K59.00 Constipation, unspecified; E86.0 Dehydration; J43.9 Emphysema, unspecified; R06.02 Shortness of breath; I10 Essential (primary) hypertension; E78.5 Hyperlipidemia, unspecified; K57.90 Diverticulosis of intestine, part unspecified, without perforation or abscess without bleeding; Z79.82 Long term (current) use of aspirin; F17.210 Nicotine dependence, cigarettes, uncomplicated; Z88.0 Allergy status to penicillin
CPT/HCPCS: 36415; 71045; 74177; 80048; 80053; 81003; 81015; 83605; 83690; 83880; 84484; 85025; 85610; 85730; 87040; 87070; 87205; 87899; 93005; 94640; 96374; 99284; A9270-GY; G0378; J1644; J2930; J3475; J7512; Q9967

== ENCOUNTER 2017-12-03 19:45 | Inpatient (IN) | payer MEDICARE ==
--- NOTE | 2017-12-03 20:38 | ED ---
Back Pain - HPI Summary HPI Summary: The patient is a 77 y/o F presenting to [facility] with a chief complaint of sudden onset bilateral lower back pain starting yesterday. She has never had this back pain before, and the aching pain does not radiate. The pain, which is currently rated 8/10 in severity, is aggravated by coughing and bending, and is alleviated by sitting at rest. She denies any other musculoskeletal or abdominal pain, but she does report chronic right shoulder pain. She additionally c/o SOB from COPD exacerbation, which started from smoking; she is still a current smoker. She had a recent Abd/Pel CT in September without any evidence of acute disease. She is worried for CA because her boyfriend had a similar sudden onset of back pain that resulted in CA. She is currently taking a steroid medication for her COPD for a week. No hx of cardiac or GI disease. - History of Current Complaint Chief Complaint: EDShortnessOfBreath Stated Complaint: BACK PAIN/DIFF BREATHING Time Seen by Provider: 12/03/17 20:27 Hx Obtained From: Patient Onset/Duration: Sudden Onset, Lasting Hours - starting yesterday, Still Present Onset/Duration: Started Hours Ago, Still Present Timing: Lasting Hours Severity Initially: Moderate Severity Currently: Moderate Pain Intensity: 8 Pain Scale Used: 0-10 Numeric Character: Aching Aggravating Symptom(s): Bending, Cough Alleviating Symptom(s): Rest, Position - sitting Associated Signs And Symptoms: Positive: Other - SOB. Negative: Abdominal Pain Full Body (No Head): 1 - bilateral lower back pain - Allergies/Home Medications Allergies/Adverse Reactions: Allergies Allergy/AdvReac Type Severity Reaction Status Date / Time iron Allergy Unknown Verified 12/03/17 19:55 Reaction Details latex Allergy Unknown Verified 12/03/17 19:55 Reaction Details Penicillins Allergy Unknown Verified 12/03/17 19:55 Reaction Details PMH/Surg Hx/FS Hx/Imm Hx Endocrine/Hematology History: Reports: Hx Thyroid Disease - no meds Denies: Hx Diabetes, Hx Anemia Cardiovascular History: Reports: Hx Hypercholesterolemia, Hx Hypertension, Hx Rheumatic Fever - as a child, Other Cardiovascular Problems/Disorders - LBBB Respiratory History: Reports: Hx Chronic Obstructive Pulmonary Disease (COPD), Other Respiratory Problems/Disorders GI History: Denies: Hx Jaundice History: Denies: Hx Renal Disease Musculoskeletal History: Reports: Other Musculoskeletal History - RIght humerus fracture , apr 2015 Sensory History: Reports: Hx Cataracts - both eyes, Hx Contacts or Glasses - glasses, Hx Deafness, Hx Hearing Aid Opthamlomology History: Reports: Hx Cataracts - both eyes, Hx Contacts or Glasses - glasses - Surgical History Surgery Procedure, Year, and Place: Bilat. breast benign biopsy. tonsillectomy. appendectomy with hysterectomy. left carotid endarerectomy 2003 Hx Anesthesia Reactions: No Infectious Disease History: No Infectious Disease History: Denies: Traveled Outside the [place] in Last 30 Days - Family History Known Family History: Positive: Hypertension, Other - CA - Social History Alcohol Use: None Alcohol Amount: a beer a day maybe Hx Substance Use: No Substance Use Type: Reports: None Hx Tobacco Use: Yes Smoking Status (MU): Heavy Every Day Tobacco Smoker Type: Cigarettes Amount Used/How Often: smoking since 18 years old 10-24 cigarettes a day Have You Smoked in the Last Year: Yes Review of Systems Positive: Shortness Of Breath Positive: Other - bilateral lower back pain All Other Systems Reviewed And Are Negative: Yes Physical Exam - Summary Physical Exam Summary: Appearance: Well-appearing, Well-nourished, lying in bed comfortably Skin: Warm, dry, no obvious rash Eyes: sclera anicteric, no conjunctival pallor ENT: mucous membranes moist, pharynx appears normal Neck: Supple, nontender Respiratory: Clear to auscultation, no signs of respiratory distress Cardiovascular: Normal S1, S2. No murmurs. Normal distal pulses in tibial and radial bilaterally. Abdomen: Soft, nontender, normal active bowel sounds present Musculoskeletal: Strength/ROM Intact, tenderness to palpation in the lower back Neurological: A&Ox3, awake and alert, mentation is normal, speech is fluent and appropriate Psychiatric: affect is normal, does not appear anxious or depressed Triage Information Reviewed: Yes Vital Signs On Initial Exam: Initial Vitals Temp Pulse Resp BP Pulse Ox 97.8 F 115 22 150/62 89 12/03/17 19:51 12/03/17 19:51 12/03/17 19:51 12/03/17 19:51 12/03/17 19:51 Vital Signs Reviewed: Yes Diagnostics - Vital Signs Vital Signs Temp Pulse Resp BP Pulse Ox 12/03/17 19:51 97.8 F 115 22 150/62 89 - Laboratory Result Diagrams: 12/04/17 00:14 12/04/17 00:14 Lab Statement: Any lab studies that have been ordered have been reviewed, and results considered in the medical decision making process. - EKG 00:54 Cardiac Rate: Tachycardia - 102 BPM EKG Rhythm: Sinus Tachycardia EKG Interpretation: LBBB. Back Pain Course/Dx - Course Course Of Treatment: This is a 77-year-old persistent smoker with COPD who comes in with complaints of lower back pain and worsening dyspnea. Her back pain does not appear to be anything serious, but on ambulating her she became quite dyspneic, solano, and dropped her saturations into the mid to low 80s. I suspect that her COPD is flaring, and she is not well enough to be treated at home. She will be admitted to the hospital. - Diagnoses Provider Diagnoses: COPD exacerbation, Low back pain - Provider Notifications Discussed Care Of Patient With: Tarun Pozo Time Discussed With Above Provider: 23:00 Instructed by Provider To: Other - I consulted with Dr. Pozo, who accepts the patient for admission to [facility] for further care. Discharge - Sign-Out/Discharge Documenting (check all that apply): Patient Departure - Patient will be admitted to [facility] for further care. - Discharge Plan Condition: Good Disposition: ADMITTED TO [facility] - Billing Disposition and Condition Condition: GOOD Disposition: Admitted to [facility] - Attestation Statements Document Initiated by Nohemi: Yes Documenting Scribe: Deisi Rene Provider For Whom Nohemi is Documenting (Include Credential): Dr. Yeyo Montoya MD Scribe Attestation: Eliane, Deisi Rene scribed for Dr. Yeyo Montoya MD on 12/04/17 at 0140. Scribe Documentation Reviewed: Yes Provider Attestation: The documentation as recorded by the Deisi spence accurately reflects the service I personally performed and the decisions made by me, Dr. Yeyo Montoya MD
[2017-12-03] MEDS ORDERED: methylPREDNISolone 125 MG* 2 ML VIAL IV ONE (21:00)
[2017-12-03] MEDS ORDERED: Albuterol/Ipratropium NEB.SOL* Albuterol 2.5 MG/Ipratropium 0.5 MG 3 ML INH ONE (21:01)
[2017-12-03] MEDS ORDERED: cefTRIAXone(*) 1 GM in NS 0.9% 50 ML* 50 ML IVPB ONE (23:07)
[2017-12-04 00:25] LABS: ABS Basophils 0 10^3/ul (0-0.2); ABS Eosinophils 0 10^3/ul (0-0.6); ABS Lymphocytes 0.5 10^3/ul (1.0-4.8); ABS Monocytes 0.1 10^3/ul (0-0.8); ABS Neutrophils 11.6 10^3/ul (1.5-7.7); ABS Nucleated RBC 0 10^3/ul; Eosinophil % 0.2 % (0-6); Hematocrit 44 % (35-47); Hemoglobin 14.9 g/dl (12.0-16.0); Lymphocyte % 4.2 % (25-47); Mean Corpuscular HGB Conc 34 g/dl (31-36); Mean Corpuscular Hemoglobin 32 pg (27-31); Mean Corpuscular Volume 96 fL (80-97); Mean Platelet Volume 8.5 um3 (7.4-10.4); Nucleated Red Blood Cells % 0; Platelet Count 358 10^3/ul (150-450); Red Blood Count 4.62 10^6/ul (4.00-5.40); Red Cell Distribution Width 14 % (10.5-15); White Blood Count 12.2 10^3/ul (3.5-10.8)
[2017-12-04] MEDS ORDERED: Acetaminophen TAB* 325 MG PO PRN (00:36)
[2017-12-04 00:43] LABS: EGFR Non-African American 112.2 (>60)
[2017-12-04] MEDS ORDERED: Albuterol/Ipratropium NEB.SOL* Albuterol 2.5 MG/Ipratropium 0.5 MG 3 ML INH SCH ×2 (01:00→07:00)
[2017-12-04] MEDS ORDERED: Albuterol/Ipratropium NEB.SOL* Albuterol 2.5 MG/Ipratropium 0.5 MG 3 ML ONE (01:12)
[2017-12-04] MEDS: Enoxaparin(*) 40 MG/0.4 ML SYR SUBCUT SCH (02:42)
[2017-12-04] MEDS: methylPREDNISolone SOD 40 MG* 1 ML VIAL IV SCH ×3 (02:42→16:06)
[2017-12-04] MEDS: Azithromycin IV(*) 500 MG in NS 0.9% 250 ML* 250 ML IVPB SCH (02:42)
[2017-12-04] MEDS: amLODIPine TAB* 5 MG PO SCH (05:53)
[2017-12-04] MEDS: Cyanocobalamin TAB* 500 MCG PO SCH (08:32)
[2017-12-04] MEDS: Aspirin EC TAB* 81 MG TAB.EC PO SCH (08:32)
[2017-12-04] MEDS: Atorvastatin* 10 MG TAB PO SCH (08:32)
[2017-12-04] MEDS: Hydrochlorothiazide TAB* 25 MG PO SCH (08:33)
[2017-12-04] MEDS: Cholecalciferol TAB* 1000 UNITS PO SCH (08:33)
--- NOTE | 2017-12-04 09:00 | RAD ---
INDICATION: Dyspnea. History of COPD. Tobacco use. COMPARISON: October 25, 2017 TECHNIQUE: Dual energy PA and routine lateral views of the chest were obtained. REPORT: Elevated lung volumes and both diffuse mild prominence of the interstitial markings and patchy rarefaction of the mid to upper lung zone interstitial markings. Bilateral apical pleural-parenchymal scarring. No suspicious focal pulmonary lesion, compelling alveolar consolidation, pleural effusion, pneumothorax. Negative for cardiomegaly. Prominent central pulmonary vasculature with peripheral attenuation. Chronic RIGHT humeral neck fracture. IMPRESSION: #. Stigmata of advanced chronic obstructive pulmonary disease and emphysema with probable pulmonary arterial hypertension. #. No evidence for pneumonia. #. Negative for pulmonary edema. R1
--- NOTE | 2017-12-04 09:07 | RAD ---
Indication: Low back pain. Suspect compression fracture. Comparison: October 25, 2017 CT. Technique: AP and lateral views lumbar sacral spine. Report: Alignment is anatomic. No cortical disruption or trabecular impaction to indicate a vertebral body fracture. Multilevel degenerative spondylosis and facet joint osteoarthritis. Disc space narrowing is severe at L5-S1 as on the prior exam. Unremarkable soft tissue contours. Vascular calcifications. IMPRESSION: #. Negative for fracture. R1
[2017-12-04] MEDS ORDERED: Albuterol/Ipratropium NEB.SOL* Albuterol 2.5 MG/Ipratropium 0.5 MG 3 ML INH PRN (09:37)
[2017-12-04] MEDS: NF:Umeclidin/Vilant 62.5 MDI 62.5/25 mcg 14 INH ELLIPTA DEVICE INH SCH (09:54)
--- NOTE | 2017-12-04 12:12 | RAD ---
Indication: Low back pain. Question kidney stones. Comparison: October 25, 2017 CT. Technique: Renal ultrasound. Report: Normal morphology 10.1 x 4.7 x 4.1 cm RIGHT kidney and 10.4 x 5.3 x 4.8 cm LEFT kidney. Normal bilateral renal cortical echogenicity. No conspicuous stones, focal renal lesions, or hydronephrosis. IMPRESSION: #. Negative renal ultrasound.
[2017-12-04] MEDS: Ramipril CAP* 10 MG PO SCH (16:06)
--- NOTE | 2017-12-04 16:40 | HP ---
CC: Dr. Alexander ADMISSION HISTORY AND PHYSICAL: DATE OF ADMISSION: 12/04/17 CHIEF COMPLAINT: Back pain. HISTORY OF PRESENT ILLNESS: Ms. Armstrong is a 77-year-old woman with a history of COPD, who presente d to the emergency department this evening complaining of bilateral lower back pain for 2 days. The pain is quite severe, it limited her walking. She also reports dyspnea on exertion, which has slowly worsened in the last 2 months. She was on oral steroids for 1 week back in September according to her through her primary care doctor. She has been using her levalbuterol as needed with some relief, but continues to have a productive cough above her baseline in the last few days. She denies any chest pain, denies any hemoptysis, denies any fevers. The patient was concerned about her low back pain be cause her partner developed sudden onset of low back pain a few years ago and on cancer a few we eks later. Review of her chart shows that she had a CT abdomen and pelvis on October 25 during her previous visit to this hospital where she was kept overnight for COPD exacerbation and constipation. At that time, the CT showed no neoplasm, no spinal fracture, and some possible kidney stones. In th e emergency department this evening, she was reassured for her back and was assessed for discharge, b ut she could not walk more than 20 feet without collapsing into a chair. We were asked to admit her for COPD exacerbation as well as back pain. PAST MEDICAL HISTORY: Includes COPD as above. She also has hypertension, left bundle-branch block, hyperlipidemia, history of diverticular bleed. PAST SURGICAL HISTORY: Carotid endarterectomy on the left, hysterectomy, and appendectomy. MEDICATIONS: On admission: 1. Norvasc 10 mg p.o. q. day. 2. Aspirin 81 mg p.o. q. day. 3. Vitamin D 1000 units p.o. q. day. 4. Vitamin B12 of 500 mcg sublingual every evening. 5. Hydrochlorothiazide 12.5 mg p.o. q.a.m. 6. Xopenex inhaler 1 to 2 puffs q.6 hours p.r.n. wheezing. 7. Lovastatin 20 mg p.o. q.p.m. 8. Ramipril 10 mg p.o. q.p.m. ALLERGIES: IRON, LATEX, and PENICILLIN. FAMILY HISTORY: Notable for father of bladder cancer and mother of breast cancer. SOCIAL HISTORY: She is retired from the [employer]. She is . She has no children. Her surrogate will be Kaykay, her niece. She continues to smoke a pack per day. She drinks alcohol about 1 drink per day. No recreational drugs. REVIEW OF SYSTEMS: The patient denies any fever. She has had anorexia for 1 day. She also reports w eight loss in the last 2 months of over 10 pounds. The patient denies any chest pain or palpitations . The patient denies any hemoptysis, but does have shortness of breath and cough. The patient denie s any nausea, vomiting, or diarrhea. She does have low back pain. Remainder of her 14-point review of systems is negative other than mentioned in the HPI. PHYSICAL EXAMINATION GENERAL: She is alert, in no acute distress. VITAL SIGNS: Temperature is 36.6, pulse 97 to 115, respirations 26, blood pressure is 173/74, O2 sat is 89% to 99% on room air. HEENT: Head is normocephalic, atraumatic. Sclerae anicteric. Pupils are equal, round, reactive to light and accommodation. Oropharynx is moist. No lesions. NECK: No JVD. No carotid bruits. No thyromegaly. LUNGS: Diminished throughout. No wheezes or rales. HEART: Tachycardic, regular, no murmurs. ABDOMEN: Soft, nontender. Positive bowel sounds. No hepatosplenomegaly. There is bilateral CVA te nderness. EXTREMITIES: No peripheral edema. Dorsalis pedis pulses 1+ bilaterally. NEUROLOGIC: Cranial nerves II through XII are intact. Motor strength is 5/5 throughout. Deep tendo n reflexes are symmetric. DIAGNOSTIC STUDIES/LAB DATA: Sodium 137, potassium 3.6, chloride 97, bicarb 25, BUN 8, creatinine 0 .53, glucose 110, calcium 10.3. Troponin 0.01. White count 12.2, hemoglobin 14.9, hematocrit 44.7, platelets of 358. EKG is pending. Chest x-ray is with hyperinflation without infiltrates. Lumbar spine films pending. ASSESSMENT AND PLAN: 1. This is a 77-year-old woman presenting with dyspnea on exertion, chronic obstructive pulmonary di sease exacerbation. She will be admitted to medical floor and have oxygen to keep her saturations ab ove 92% as well as intravenous steroids to address inflammation in the lungs. We will also treat pos sible pneumonia that could be missed on chest x-ray with ceftriaxone and azithromycin. 2. Her low back pain in the differential may include a compression fracture or kidney stones versus muscle spasm or axial back pain due to spondylosis. The patient will have x-ray of her lumbar spine to assess for compression fractures and she will have renal ultrasound when available to assess for k idney stones. She can have physical therapy in the hospital to help her with ambulation and back manjula n. 3. For hypertension, we will continue her current medication. 4. For her chronic obstructive pulmonary disease, she should be on inhaled long- acting methyl choli nergic agent as well as long-acting beta agonist in addition to her p.r.n. levalbuterol. 5. Code status is full, but she would not want to have prolonged intubation or dependence on machine s or chemotherapy or tube feeding. 6. DVT prophylaxis will be accomplished with subcutaneous Lovenox. [id number]/[facility] #: [id number]
[2017-12-05] MEDS: methylPREDNISolone SOD 40 MG* 1 ML VIAL IV SCH ×2 (01:38→08:32)
[2017-12-05] MEDS: cefTRIAXone(*) 1 GM in NS 0.9% 50 ML* 50 ML IVPB SCH (01:38)
[2017-12-05] MEDS: Enoxaparin(*) 40 MG/0.4 ML SYR SUBCUT SCH (01:38)
[2017-12-05] MEDS: Azithromycin IV(*) 500 MG in NS 0.9% 250 ML* 250 ML IVPB SCH (02:26)
[2017-12-05] MEDS: amLODIPine TAB* 5 MG PO SCH (06:35)
[2017-12-05 06:42] LABS: Hematocrit 41 % (35-47); Hemoglobin 13.7 g/dl (12.0-16.0); Mean Corpuscular HGB Conc 33 g/dl (31-36); Mean Corpuscular Hemoglobin 32 pg (27-31); Mean Corpuscular Volume 96 fL (80-97); Mean Platelet Volume 8.8 um3 (7.4-10.4); Platelet Count 327 10^3/ul (150-450); Red Blood Count 4.29 10^6/ul (4.00-5.40); Red Cell Distribution Width 14 % (10.5-15); White Blood Count 28.2 10^3/ul (3.5-10.8)
[2017-12-05 06:54] LABS: EGFR Non-African American 132.1 (>60)
[2017-12-05] MEDS: NF:Umeclidin/Vilant 62.5 MDI 62.5/25 mcg 14 INH ELLIPTA DEVICE INH SCH (08:04)
[2017-12-05] MEDS: Hydrochlorothiazide TAB* 25 MG PO SCH (08:32)
[2017-12-05] MEDS: Cholecalciferol TAB* 1000 UNITS PO SCH (08:32)
[2017-12-05] MEDS: Atorvastatin* 10 MG TAB PO SCH (08:32)
[2017-12-05] MEDS: Aspirin EC TAB* 81 MG TAB.EC PO SCH (08:33)
[2017-12-05] MEDS: guaiFENesin ER TAB 600 MG PO SCH ×2 (10:43→22:00)
[2017-12-05] MEDS: Potassium Chlor TAB* 20 MEQ TAB.ER PO SCH ×2 (10:52→22:00)
[2017-12-05] MEDS: Psyllium PAK PO SCH ×2 (10:52→22:03)
[2017-12-05] MEDS: Ramipril CAP* 10 MG PO SCH (16:46)
[2017-12-06] MEDS: cefTRIAXone(*) 1 GM in NS 0.9% 50 ML* 50 ML IVPB SCH (01:35)
[2017-12-06] MEDS: Enoxaparin(*) 40 MG/0.4 ML SYR SUBCUT SCH ×2 (01:40→23:59)
[2017-12-06] MEDS: Azithromycin IV(*) 500 MG in NS 0.9% 250 ML* 250 ML IVPB SCH (02:28)
[2017-12-06] MEDS: amLODIPine TAB* 5 MG PO SCH (07:17)
[2017-12-06] MEDS: NF:Umeclidin/Vilant 62.5 MDI 62.5/25 mcg 14 INH ELLIPTA DEVICE INH SCH (07:33)
--- NOTE | 2017-12-06 08:31 | PN ---
Subjective - Subjective Reason for Note: Progress Note History: I have reviewed Carol Armstrong's presentation in Dr. Tarun Pozo's admitting history and physical, Dr. Yoselyn Patrick's 2 progress notes and also from the patient. I have reviewed the electronic medical record and the CXR/ EKGs directly. She states this started with a cough around 2 weeks ago. She had no pharyngitis. She started developing copious sputum. She became more dyspneic on exercise - she go to get her newspaper that was dropped by her front door, but had problems returning. She developed the back pain 2 days before her admission - it worsens on coughing and also on turning in bed. She states the pain and the dyspnea are unchanged. She has had no fevers or sweats. She has no hemoptysis. Active Problems: Active Problems COPD with acute exacerbation (Acute) J44.1 Emphysema lung (Acute) J43.9 Low back pain (Acute) M54.5 Essential hypertension (Chronic) I10 H/O carotid endarterectomy (Chronic) Z98.89 Hypercholesteremia (Chronic) E78.0 Left bundle branch block (Chronic) I44.7 Tobacco abuse (Chronic) Z72.0 Current Medications: Current Medications Acetaminophen (Tylenol Tab*) 650 mg PO Q6H PRN PRN Reason: FEVER/HEADACHE Albuterol/Ipratropium (Duoneb (Albuterol 2.5 Mg/Ipratropium 0.5 Mg)) 1 neb INH Q4H PRN PRN Reason: SOB/WHEEZING Amlodipine Besylate (Norvasc Tab*) 10 mg PO 0600 [facility] Last Admin: 12/06/17 07:17 Dose: 10 mg Aspirin (Aspirin Ec Tab*) 81 mg PO 1000 [facility] Last Admin: 12/05/17 08:33 Dose: 81 mg Atorvastatin Calcium (Lipitor*) 5 mg PO 1000 [facility] Last Admin: 12/05/17 08:32 Dose: 5 mg Cholecalciferol (Vitamin D Tab*) 1,000 units PO 1000 [facility] Last Admin: 12/05/17 08:32 Dose: 1,000 units Cyanocobalamin (Vitamin B12 Tab*) 500 mcg PO EVERY OTHER DAY [facility] Last Admin: 12/04/17 08:32 Dose: 500 mcg Enoxaparin Sodium (Lovenox(*)) 40 mg SUBCUT Q24H [facility] Last Admin: 12/06/17 01:40 Dose: 40 mg Guaifenesin (Mucinex*) 600 mg PO BID [facility] Last Admin: 12/05/17 22:00 Dose: 600 mg Hydrochlorothiazide (Hydrodiuril Tab*) 12.5 mg PO 1000 [facility] Last Admin: 12/05/17 08:32 Dose: 12.5 mg Ceftriaxone Sodium 1 gm/ (Sodium Chloride) 50 mls @ 200 mls/hr IVPB Q24H [facility] Last Admin: 12/06/17 01:35 Dose: 200 mls/hr Azithromycin 500 mg/ Sodium (Chloride) 250 mls @ 250 mls/hr IVPB Q24H [facility] Last Admin: 12/06/17 02:28 Dose: 250 mls/hr Potassium Chloride (Klor Con Er Tab*) 20 meq PO BID [facility] Last Admin: 12/05/17 22:00 Dose: 20 meq Prednisone (Deltasone Tab*) 40 mg PO DAILY [facility] Psyllium Hydrophilic Mucilloid (Metamucil Marshall*) 1 pkt PO BID [facility] Last Admin: 12/05/17 22:03 Dose: Not Given Ramipril (Altace Cap*) 10 mg PO QPM [facility] Last Admin: 12/05/17 16:46 Dose: 10 mg Umeclidinium/Vilanterol (Anoro 62.5/25 Ellipta Device (Nf)) 1 inh INH DAILY [facility] Last Admin: 12/06/17 07:33 Dose: Not Given Home Medications: Home Medications Medication Instructions Recorded Confirmed Type Cholecalciferol (Vitamin D3) 1,000 unit PO 1000 06/02/15 12/04/17 History [Vitamin D3] Cyanocobalamin (Vitamin B-12) 500 mcg SL EVERY OTHER DAY 06/02/15 12/04/17 History [B-12] Hydrochlorothiazide TAB* 12.5 mg PO 1000 06/02/15 12/04/17 History [Hydrodiuril TAB*] Levalbuterol HFA INHALER* [Xopenex 1 puff INH Q6H PRN 06/02/15 12/04/17 History Hfa Inhaler*] Lovastatin [Altoprev] 20 mg PO 1000 06/02/15 12/04/17 History Ramipril CAP* [Altace CAP*] 10 mg PO QPM 06/02/15 12/04/17 History Amlodipine Besylate [Norvasc 10 mg 10 mg PO 0600 12/22/16 12/04/17 History tab] Misc Natural Products [Lutein 20] 1 cap PO 1400 12/22/16 12/04/17 History Aspirin [Aspirin 81 MG TAB] 81 mg PO 1000 01/05/17 12/04/17 History Beclomethasone Dipropionate [Qvar] 80 mcg IN BID #1 aer 12/03/17 Rx Allergies: Allergies Allergy/AdvReac Type Severity Reaction Status Date / Time iron Allergy Unknown Verified 12/03/17 19:55 Reaction Details latex Allergy Unknown Verified 12/03/17 19:55 Reaction Details Penicillins Allergy Unknown Verified 12/03/17 19:55 Reaction Details Objective - Vital Signs Vital Signs: Vital Signs 12/05/17 12/05/17 12/05/17 08:39 11:41 11:55 Temperature 98.0 F Pulse Rate 104 96 Respiratory 18 24 Rate Blood Pressure 114/47 110/56 (mmHg) O2 Sat by Pulse 96 99 Oximetry 12/05/17 12/05/17 12/05/17 13:38 15:31 15:45 Temperature 98.3 F Pulse Rate 99 Respiratory 22 20 Rate Blood Pressure 137/48 138/72 (mmHg) O2 Sat by Pulse 96 98 Oximetry 12/05/17 12/05/17 12/06/17 19:14 21:50 00:00 Temperature 98.3 F 97.3 F Pulse Rate 83 62 Respiratory 18 20 20 Rate Blood Pressure 126/48 141/57 (mmHg) O2 Sat by Pulse 98 98 Oximetry 12/06/17 03:25 Temperature 97.3 F Pulse Rate 80 Respiratory 20 Rate Blood Pressure 141/48 (mmHg) O2 Sat by Pulse 99 Oximetry - Intake and Output Intake and Output: Intake & Output 12/03/17 12/04/17 12/05/17 12/06/17 11:59 11:59 11:59 11:59 Intake Total 500 720 360 Output Total 175 Balance 500 720 185 Weight 91 lb Intake: IV Fluids 20 290 ABX - AZITHROMYCIN 250 NS (0.9%) 20 40 IVPB 280 ABX - AZITHROMYCIN 280 Oral 200 430 360 Output: Urine 175 Other: Estimated Void Small Medium Medium # Bowel Movements 0 0 0 Estimated Stool Amount Medium # Voids 1 1 1 ADLs: Meal Record Start: 12/04/17 01: 01 Freq: DAILY@0900,1400,1800 Status: Active Protocol: Created 12/04/17 01:01 System (Rec: 12/04/17 01:01 System RESP-C03) Document 12/04/17 09:00 [id number] (Rec: 12/04/17 13:59 [id number] MED-C11) Document 12/04/17 14:00 [id number] (Rec: 12/04/17 14:06 [id number] MED-C11) Document 12/04/17 17:55 [id number] (Rec: 12/04/17 17:55 [id number] MED-C14) Document 12/05/17 09:00 [id number] (Rec: 12/05/17 10:20 [id number] MED-C11) Document 12/05/17 14:00 [id number] (Rec: 12/05/17 14:29 [id number] MED-C09) Document 12/05/17 18:00 [id number] (Rec: 12/05/17 18:10 [id number] MED-C11) Intake and Output Start: 12/03/17 19: 55 Freq: Status: Active Protocol: Created 12/03/17 19:55 System (Rec: 12/03/17 19:55 System ED-C24) Intake and Output Start: 12/04/17 01: 01 Freq: DAILY@0600,1400,2200 Status: Active Protocol: Created 12/04/17 01:01 System (Rec: 12/04/17 01:01 System RESP-C03) Document 12/04/17 06:00 [id number] (Rec: 12/04/17 06:10 [id number] MED-C04) Document 12/04/17 14:00 [id number] (Rec: 12/04/17 14:06 [id number] MED-C11) Document 12/04/17 21:53 [id number] (Rec: 12/04/17 22:08 [id number] MED-C14) Document 12/05/17 06:00 [id number] (Rec: 12/05/17 06:28 [id number] MED-C09) Document 12/05/17 14:00 [id number] (Rec: 12/05/17 14:29 [id number] MED-C09) Document 12/05/17 22:00 [id number] (Rec: 12/05/17 22:13 [id number] MED-C09) Document 12/06/17 06:00 [id number] (Rec: 12/06/17 06:42 [id number] MED-C09) - Physical Exam General Physical Exam Comment: She is using accessory muscles of respiration. General: Yes Cyanosis, No Anemia, No Jaundice, No Clubbing Skin: Normal: Rash Lungs and Chest: Yes: Respiratory Distress, Use of Accessory Muscles. No: Chest Expansion Full - over-expanded, Chest Expansion Symetrica, Percussion Note Resonant - Hyper-resonant, Vessicular Breath Sounds - emphysematous breath sounds (distant), Crackles, Wheezes Heart Rate and Rhythm: Tachycardia JVP: Not Elevated Additional Cardiovascular: Yes: Normal Heart Sounds. No: Heart Murmur, Carotid Bruits, Pedal Edema Abdominal Exam: Yes: Soft, Bowel Sounds Present. No: Distention, Abdominal Mass , Abdominal Tenderness Assessment - Problem List Assessment: Patient Problems COPD with acute exacerbation (Acute) Emphysema lung (Acute) Low back pain (Acute) Essential hypertension (Chronic) H/O carotid endarterectomy (Chronic) Hypercholesteremia (Chronic) Left bundle branch block (Chronic) Tobacco abuse (Chronic) Plan: COPD with acute exacerbation (Acute)/Emphysema lung (Acute) I think the primary problem is an acute exacerbation of COPD. It think this was triggered by a viral URI. She is having a slow response to therapy. I will check her ABGs to see if she is retaining CO2. I will mobilize her. I will check her O2 saturation on walking - she has no home O2 and she is likely to restart cigarettes. This makes home O2 hazardous Low back pain (Acute) This pain is exacerbated by coughing and turning in bed. No radiation. The steroids should be helpful. Essential hypertension (Chronic) This is controlled H/O carotid endarterectomy (Chronic) Hypercholesteremia (Chronic) secondary diagnosis Left bundle branch block (Chronic) Tobacco abuse (Chronic) She continues to smoke - though didn't for a couple of days before admission. This is a barrier to her recovery and to therapeutics. I have counseled her on this. Domestic situation: She lives on her own. She has an aide 1 day per week who strips her bed and washes the sheets etc. She is coping with ADLs otherwise. I discussed the home situation and the use of home O2. I will check her ABGs. I am considering a pulmonology consultation.
--- NOTE | 2017-12-06 08:33 | PN ---
Subjective - Subjective Current Medications: Current Medications Acetaminophen (Tylenol Tab*) 650 mg PO Q6H PRN PRN Reason: FEVER/HEADACHE Albuterol/Ipratropium (Duoneb (Albuterol 2.5 Mg/Ipratropium 0.5 Mg)) 1 neb INH Q4H PRN PRN Reason: SOB/WHEEZING Amlodipine Besylate (Norvasc Tab*) 10 mg PO 0600 [facility] Last Admin: 12/06/17 07:17 Dose: 10 mg Aspirin (Aspirin Ec Tab*) 81 mg PO 1000 [facility] Last Admin: 12/05/17 08:33 Dose: 81 mg Atorvastatin Calcium (Lipitor*) 5 mg PO 1000 [facility] Last Admin: 12/05/17 08:32 Dose: 5 mg Cholecalciferol (Vitamin D Tab*) 1,000 units PO 1000 [facility] Last Admin: 12/05/17 08:32 Dose: 1,000 units Cyanocobalamin (Vitamin B12 Tab*) 500 mcg PO EVERY OTHER DAY [facility] Last Admin: 12/04/17 08:32 Dose: 500 mcg Enoxaparin Sodium (Lovenox(*)) 40 mg SUBCUT Q24H [facility] Last Admin: 12/06/17 01:40 Dose: 40 mg Guaifenesin (Mucinex*) 600 mg PO BID [facility] Last Admin: 12/05/17 22:00 Dose: 600 mg Hydrochlorothiazide (Hydrodiuril Tab*) 12.5 mg PO 1000 [facility] Last Admin: 12/05/17 08:32 Dose: 12.5 mg Ceftriaxone Sodium 1 gm/ (Sodium Chloride) 50 mls @ 200 mls/hr IVPB Q24H [facility] Last Admin: 12/06/17 01:35 Dose: 200 mls/hr Azithromycin 500 mg/ Sodium (Chloride) 250 mls @ 250 mls/hr IVPB Q24H [facility] Last Admin: 12/06/17 02:28 Dose: 250 mls/hr Potassium Chloride (Klor Con Er Tab*) 20 meq PO BID [facility] Last Admin: 12/05/17 22:00 Dose: 20 meq Prednisone (Deltasone Tab*) 40 mg PO DAILY [facility] Psyllium Hydrophilic Mucilloid (Metamucil Marshall*) 1 pkt PO BID [facility] Last Admin: 12/05/17 22:03 Dose: Not Given Ramipril (Altace Cap*) 10 mg PO QPM [facility] Last Admin: 12/05/17 16:46 Dose: 10 mg Umeclidinium/Vilanterol (Anoro 62.5/25 Ellipta Device (Nf)) 1 inh INH DAILY [facility] Last Admin: 12/06/17 07:33 Dose: Not Given Home Medications: Home Medications Medication Instructions Recorded Confirmed Type Cholecalciferol (Vitamin D3) 1,000 unit PO 1000 06/02/15 12/04/17 History [Vitamin D3] Cyanocobalamin (Vitamin B-12) 500 mcg SL EVERY OTHER DAY 06/02/15 12/04/17 History [B-12] Hydrochlorothiazide TAB* 12.5 mg PO 1000 06/02/15 12/04/17 History [Hydrodiuril TAB*] Levalbuterol HFA INHALER* [Xopenex 1 puff INH Q6H PRN 06/02/15 12/04/17 History Hfa Inhaler*] Lovastatin [Altoprev] 20 mg PO 1000 06/02/15 12/04/17 History Ramipril CAP* [Altace CAP*] 10 mg PO QPM 06/02/15 12/04/17 History Amlodipine Besylate [Norvasc 10 mg 10 mg PO 0600 12/22/16 12/04/17 History tab] Misc Natural Products [Lutein 20] 1 cap PO 1400 12/22/16 12/04/17 History Aspirin [Aspirin 81 MG TAB] 81 mg PO 1000 01/05/17 12/04/17 History Beclomethasone Dipropionate [Qvar] 80 mcg IN BID #1 aer 12/03/17 Rx Allergies: Allergies Allergy/AdvReac Type Severity Reaction Status Date / Time iron Allergy Unknown Verified 12/03/17 19:55 Reaction Details latex Allergy Unknown Verified 12/03/17 19:55 Reaction Details Penicillins Allergy Unknown Verified 12/03/17 19:55 Reaction Details Objective - Vital Signs Vital Signs: Vital Signs 12/05/17 12/05/17 12/05/17 08:39 11:41 11:55 Temperature 98.0 F Pulse Rate 104 96 Respiratory 18 24 Rate Blood Pressure 114/47 110/56 (mmHg) O2 Sat by Pulse 96 99 Oximetry 12/05/17 12/05/17 12/05/17 13:38 15:31 15:45 Temperature 98.3 F Pulse Rate 99 Respiratory 22 20 Rate Blood Pressure 137/48 138/72 (mmHg) O2 Sat by Pulse 96 98 Oximetry 12/05/17 12/05/17 12/06/17 19:14 21:50 00:00 Temperature 98.3 F 97.3 F Pulse Rate 83 62 Respiratory 18 20 20 Rate Blood Pressure 126/48 141/57 (mmHg) O2 Sat by Pulse 98 98 Oximetry 12/06/17 03:25 Temperature 97.3 F Pulse Rate 80 Respiratory 20 Rate Blood Pressure 141/48 (mmHg) O2 Sat by Pulse 99 Oximetry - Intake and Output Intake and Output: Intake & Output 12/03/17 12/04/17 12/05/17 12/06/17 11:59 11:59 11:59 11:59 Intake Total 500 720 360 Output Total 175 Balance 500 720 185 Weight 91 lb Intake: IV Fluids 20 290 ABX - AZITHROMYCIN 250 NS (0.9%) 20 40 IVPB 280 ABX - AZITHROMYCIN 280 Oral 200 430 360 Output: Urine 175 Other: Estimated Void Small Medium Medium # Bowel Movements 0 0 0 Estimated Stool Amount Medium # Voids 1 1 1 ADLs: Meal Record Start: 12/04/17 01: 01 Freq: DAILY@0900,1400,1800 Status: Active Protocol: Created 12/04/17 01:01 System (Rec: 12/04/17 01:01 System RESP-C03) Document 12/04/17 09:00 [id number] (Rec: 12/04/17 13:59 [id number] MED-C11) Document 12/04/17 14:00 [id number] (Rec: 12/04/17 14:06 [id number] MED-C11) Document 12/04/17 17:55 [id number] (Rec: 12/04/17 17:55 [id number] MED-C14) Document 12/05/17 09:00 [id number] (Rec: 12/05/17 10:20 [id number] MED-C11) Document 12/05/17 14:00 [id number] (Rec: 12/05/17 14:29 [id number] MED-C09) Document 12/05/17 18:00 [id number] (Rec: 12/05/17 18:10 [id number] MED-C11) Intake and Output Start: 12/03/17 19: 55 Freq: Status: Active Protocol: Created 12/03/17 19:55 System (Rec: 12/03/17 19:55 System ED-C24) Intake and Output Start: 12/04/17 01: 01 Freq: DAILY@0600,1400,2200 Status: Active Protocol: Created 12/04/17 01:01 System (Rec: 12/04/17 01:01 System RESP-C03) Document 12/04/17 06:00 [id number] (Rec: 12/04/17 06:10 [id number] MED-C04) Document 12/04/17 14:00 [id number] (Rec: 12/04/17 14:06 [id number] MED-C11) Document 12/04/17 21:53 [id number] (Rec: 12/04/17 22:08 [id number] MED-C14) Document 12/05/17 06:00 [id number] (Rec: 12/05/17 06:28 [id number] MED-C09) Document 12/05/17 14:00 [id number] (Rec: 12/05/17 14:29 [id number] MED-C09) Document 12/05/17 22:00 [id number] (Rec: 12/05/17 22:13 [id number] MED-C09) Document 12/06/17 06:00 [id number] (Rec: 12/06/17 06:42 [id number] MED-C09) Assessment - Problem List Assessment: Patient Problems COPD with acute exacerbation (Acute) Constipation (Acute) Emphysema lung (Acute) Essential hypertension (Chronic) H/O carotid endarterectomy (Chronic) Hypercholesteremia (Chronic) Left bundle branch block (Chronic) Tobacco abuse (Chronic)
[2017-12-06] MEDS: Hydrochlorothiazide TAB* 25 MG PO SCH (09:44)
[2017-12-06] MEDS: Cyanocobalamin TAB* 500 MCG PO SCH (09:45)
[2017-12-06] MEDS: guaiFENesin ER TAB 600 MG PO SCH ×2 (09:45→20:07)
[2017-12-06] MEDS: Cholecalciferol TAB* 1000 UNITS PO SCH (09:45)
[2017-12-06] MEDS: Aspirin EC TAB* 81 MG TAB.EC PO SCH (09:45)
[2017-12-06] MEDS: Psyllium PAK PO SCH ×2 (09:45→20:15)
[2017-12-06] MEDS: predniSONE TAB* 20 MG PO SCH (09:46)
[2017-12-06] MEDS: Atorvastatin* 10 MG TAB PO SCH (09:46)
[2017-12-06] MEDS: Potassium Chlor TAB* 20 MEQ TAB.ER PO SCH (10:18)
[2017-12-06] MEDS: Potassium Chloride LIQUID* 20 MEQ PACKET PO SCH ×2 (11:47→20:07)
[2017-12-06] MEDS: Ramipril CAP* 10 MG PO SCH (18:14)
[2017-12-07] MEDS: cefTRIAXone(*) 1 GM in NS 0.9% 50 ML* 50 ML IVPB SCH ×2
[2017-12-07] MEDS: Azithromycin IV(*) 500 MG in NS 0.9% 250 ML* 250 ML IVPB SCH (01:31)
[2017-12-07 05:48] LABS: ABS Basophils 0.1 10^3/ul (0-0.2); ABS Eosinophils 0 10^3/ul (0-0.6); ABS Monocytes 1.4 10^3/ul (0-0.8); ABS Neutrophils 9.7 10^3/ul (1.5-7.7); ABS Nucleated RBC 0 10^3/ul; Eosinophil % 0.1 % (0-6); Hematocrit 42 % (35-47); Hemoglobin 14.4 g/dl (12.0-16.0); Lymphocyte % 15.1 % (25-47); Mean Corpuscular HGB Conc 34 g/dl (31-36); Mean Corpuscular Hemoglobin 32 pg (27-31); Mean Corpuscular Volume 95 fL (80-97); Mean Platelet Volume 8.4 um3 (7.4-10.4); Nucleated Red Blood Cells % 0.1; Platelet Count 328 10^3/ul (150-450); Red Blood Count 4.47 10^6/ul (4.00-5.40); Red Cell Distribution Width 13 % (10.5-15); White Blood Count 13.2 10^3/ul (3.5-10.8)
[2017-12-07] MEDS: amLODIPine TAB* 5 MG PO SCH (05:54)
[2017-12-07 06:09] LABS: EGFR Non-African American 164.7 (>60)
[2017-12-07] MEDS: NF:Umeclidin/Vilant 62.5 MDI 62.5/25 mcg 14 INH ELLIPTA DEVICE INH SCH (07:42)
--- NOTE | 2017-12-07 08:02 | PN ---
Subjective - Subjective Reason for Note: Discharge Note History: She continues to have back pain requiring acetaminophen. She walked yesterday without O2 and he oximetry showed good saturation. She continues to cough, but is feeling improved and would like to go h ome Active Problems: Active Problems COPD with acute exacerbation (Acute) J44.1 Emphysema lung (Acute) J43.9 Low back pain (Acute) M54.5 Essential hypertension (Chronic) I10 H/O carotid endarterectomy (Chronic) Z98.89 Hypercholesteremia (Chronic) E78.0 Left bundle branch block (Chronic) I44.7 Tobacco abuse (Chronic) Z72.0 Current Medications: Current Medications Acetaminophen (Tylenol Tab*) 650 mg PO Q6H PRN PRN Reason: FEVER/HEADACHE Last Admin: 12/06/17 23:59 Dose: 650 mg Albuterol/Ipratropium (Duoneb (Albuterol 2.5 Mg/Ipratropium 0.5 Mg)) 1 neb INH Q4H PRN PRN Reason: SOB/WHEEZING Amlodipine Besylate (Norvasc Tab*) 10 mg PO 0600 [facility] Last Admin: 12/07/17 05:54 Dose: 10 mg Aspirin (Aspirin Ec Tab*) 81 mg PO 1000 [facility] Last Admin: 12/06/17 09:45 Dose: 81 mg Atorvastatin Calcium (Lipitor*) 5 mg PO 1000 [facility] Last Admin: 12/06/17 09:46 Dose: 5 mg Cholecalciferol (Vitamin D Tab*) 1,000 units PO 1000 [facility] Last Admin: 12/06/17 09:45 Dose: 1,000 units Cyanocobalamin (Vitamin B12 Tab*) 500 mcg PO EVERY OTHER DAY [facility] Last Admin: 12/06/17 09:45 Dose: 500 mcg Enoxaparin Sodium (Lovenox(*)) 40 mg SUBCUT Q24H [facility] Last Admin: 12/06/17 23:59 Dose: 40 mg Guaifenesin (Mucinex*) 600 mg PO BID [facility] Last Admin: 12/06/17 20:07 Dose: 600 mg Hydrochlorothiazide (Hydrodiuril Tab*) 12.5 mg PO 1000 [facility] Last Admin: 12/06/17 09:44 Dose: Not Given Ceftriaxone Sodium 1 gm/ (Sodium Chloride) 50 mls @ 200 mls/hr IVPB Q24H [facility] Last Admin: 12/07/17 00:00 Dose: 200 mls/hr Azithromycin 500 mg/ Sodium (Chloride) 250 mls @ 250 mls/hr IVPB Q24H [facility] Last Admin: 12/07/17 01:31 Dose: 250 mls/hr Potassium Chloride (Klor-Con Liquid*) 20 meq PO BID [facility] Last Admin: 12/06/17 20:07 Dose: 20 meq Prednisone (Deltasone Tab*) 40 mg PO DAILY [facility] Last Admin: 12/06/17 09:46 Dose: 40 mg Psyllium Hydrophilic Mucilloid (Metamucil Marshall*) 1 pkt PO BID [facility] Last Admin: 12/06/17 20:15 Dose: Not Given Ramipril (Altace Cap*) 10 mg PO QPM [facility] Last Admin: 12/06/17 18:14 Dose: 10 mg Umeclidinium/Vilanterol (Anoro 62.5/25 Ellipta Device (Nf)) 1 inh INH DAILY [facility] Last Admin: 12/07/17 07:42 Dose: Not Given Home Medications: Home Medications Medication Instructions Recorded Confirmed Type Cholecalciferol (Vitamin D3) 1,000 unit PO 1000 06/02/15 12/04/17 History [Vitamin D3] Cyanocobalamin (Vitamin B-12) 500 mcg SL EVERY OTHER DAY 06/02/15 12/04/17 History [B-12] Hydrochlorothiazide TAB* 12.5 mg PO 1000 06/02/15 12/04/17 History [Hydrodiuril TAB*] Levalbuterol HFA INHALER* [Xopenex 1 puff INH Q6H PRN 06/02/15 12/04/17 History Hfa Inhaler*] Lovastatin [Altoprev] 20 mg PO 1000 06/02/15 12/04/17 History Ramipril CAP* [Altace CAP*] 10 mg PO QPM 06/02/15 12/04/17 History Amlodipine Besylate [Norvasc 10 mg 10 mg PO 0600 12/22/16 12/04/17 History tab] Misc Natural Products [Lutein 20] 1 cap PO 1400 12/22/16 12/04/17 History Aspirin [Aspirin 81 MG TAB] 81 mg PO 1000 01/05/17 12/04/17 History Beclomethasone Dipropionate [Qvar] 80 mcg IN BID #1 aer 12/03/17 Rx Allergies: Allergies Allergy/AdvReac Type Severity Reaction Status Date / Time iron Allergy Unknown Verified 12/03/17 19:55 Reaction Details latex Allergy Unknown Verified 12/03/17 19:55 Reaction Details Penicillins Allergy Unknown Verified 12/03/17 19:55 Reaction Details Objective - Vital Signs Vital Signs: Vital Signs 12/06/17 12/06/17 12/06/17 10:23 11:00 15:16 Temperature 98.0 F 98.1 F Pulse Rate 91 94 Respiratory 20 16 20 Rate Blood Pressure 146/56 132/57 (mmHg) O2 Sat by Pulse 100 98 Oximetry 12/06/17 12/06/17 12/06/17 17:56 18:05 18:06 Temperature Pulse Rate Respiratory Rate Blood Pressure (mmHg) O2 Sat by Pulse 98 98 97 Oximetry 12/06/17 12/06/17 12/06/17 19:23 20:00 23:46 Temperature 98.2 F 98.3 F Pulse Rate 91 78 Respiratory 14 20 16 Rate Blood Pressure 133/67 148/50 (mmHg) O2 Sat by Pulse 99 97 Oximetry 12/07/17 12/07/17 00:00 03:22 Temperature 97.7 F Pulse Rate 85 Respiratory 17 Rate Blood Pressure 141/40 (mmHg) O2 Sat by Pulse 97 97 Oximetry - Intake and Output Intake and Output: Intake & Output 12/04/17 12/05/17 12/06/17 12/07/17 11:59 11:59 11:59 11:59 Intake Total 500 720 600 300 Output Total 175 250 Balance 500 720 425 50 Weight 91 lb Intake: IV Fluids 20 290 ABX - AZITHROMYCIN 250 NS (0.9%) 20 40 IVPB 280 ABX - AZITHROMYCIN 280 Oral 200 430 600 300 Output: Urine 175 250 Other: Estimated Void Small Medium Medium # Bowel Movements 0 0 0 0 Estimated Stool Amount Medium # Voids 1 1 1 ADLs: Meal Record Start: 12/04/17 01: 01 Freq: DAILY@0900,1400,1800 Status: Active Protocol: Created 12/04/17 01:01 System (Rec: 12/04/17 01:01 System [id number]-C03) Document 12/04/17 09:00 [id number] (Rec: 12/04/17 13:59 [id number] MED-C11) Document 12/04/17 14:00 [id number] (Rec: 12/04/17 14:06 [id number] MED-C11) Document 12/04/17 17:55 [id number] (Rec: 12/04/17 17:55 [id number] MED-C14) Document 12/05/17 09:00 [id number] (Rec: 12/05/17 10:20 [id number] MED-C11) Document 12/05/17 14:00 [id number] (Rec: 12/05/17 14:29 [id number] MED-C09) Document 12/05/17 18:00 [id number] (Rec: 12/05/17 18:10 [id number] MED-C11) Document 12/06/17 09:00 [id number] (Rec: 12/06/17 09:04 [id number] MED-C09) Document 12/06/17 13:37 [id number] (Rec: 12/06/17 13:37 [id number] MED-C11) Document 12/06/17 18:00 [id number] (Rec: 12/06/17 18:07 [id number] MED-C11) Intake and Output Start: 12/03/17 19: 55 Freq: Status: Active Protocol: Created 12/03/17 19:55 System (Rec: 12/03/17 19:55 System ED-C24) Intake and Output Start: 12/04/17 01: 01 Freq: DAILY@0600,1400,2200 Status: Active Protocol: Created 12/04/17 01:01 System (Rec: 12/04/17 01:01 System RESP-C03) Document 12/04/17 06:00 [id number] (Rec: 12/04/17 06:10 [id number] MED-C04) Document 12/04/17 14:00 [id number] (Rec: 12/04/17 14:06 [id number] MED-C11) Document 12/04/17 21:53 [id number] (Rec: 12/04/17 22:08 [id number] MED-C14) Document 12/05/17 06:00 [id number] (Rec: 12/05/17 06:28 [id number] MED-C09) Document 12/05/17 14:00 [id number] (Rec: 12/05/17 14:29 [id number] MED-C09) Document 12/05/17 22:00 [id number] (Rec: 12/05/17 22:13 [id number] [facility]-C09) Document 12/06/17 06:00 [id number] (Rec: 12/06/17 06:42 [id number] [facility]-C09) Document 12/06/17 12:33 [id number] (Rec: 12/06/17 12:33 [id number] [facility]-C09) Document 12/06/17 21:53 [id number] (Rec: 12/06/17 21:54 [id number] [facility]-C09) Document 12/07/17 06:00 [id number] (Rec: 12/07/17 06:02 [id number] [facility]-C09) - Physical Exam General: Yes Cyanosis, No Anemia, No Jaundice, No Clubbing Lungs and Chest: Yes: Use of Accessory Muscles. No: Chest Expansion Full - over expanded, Chest Expansion Symetrica, Percussion Note Resonant - hyper- resonant, Vessicular Breath Sounds - emphysematous, Crackles, Wheezes, Respiratory Distress Heart Rate and Rhythm: Regular Additional Cardiovascular: Yes: Normal Heart Sounds. No: Heart Murmur, Pedal Edema Abdominal Exam: Yes: Soft. No: Distention, Hepatomegaly, Abdominal Tenderness Results - Results Lab Results: Laboratory Results - last 24 hr 12/06/17 12/07/17 12/07/17 10:45 05:32 05:32 WBC 13.2 H RBC 4.47 Hgb 14.4 Hct 42 MCV 95 MCH 32 H MCHC 34 RDW 13 Plt Count 328 MPV 8.4 Neut % (Auto) 73.5 Lymph % (Auto) 15.1 L [place] % (Auto) 10.9 H Eos % (Auto) 0.1 Baso % (Auto) 0.4 Absolute Neuts (auto) 9.7 H Absolute Lymphs (auto) 2.0 Absolute Monos (auto) 1.4 H Absolute Eos (auto) 0 Absolute Basos (auto) 0.1 Absolute Nucleated RBC 0 Nucleated RBC % 0.1 Patient Temperature Not Reportable ABG pH 7.51 H ABG pH (Temp Correct) Not Reportable ABG pCO2 45 ABG pCO2 (Temp Corrct Not Reportable ABG pO2 96 ABG pO2 (Temp Correct Not Reportable ABG HCO3 33.7 H ABG O2 Saturation 99.0 H ABG Base Excess 11.3 H Respiration Rate Not Reportable O2 Delivery Device nasal cannula 2lpm Ventilator Type Not Reportable Vent Mode Not Reportable FiO2 Not Reportable Inspiratory Time Not Reportable PEEP Not Reportable Pressure Support Not Reportable Pressure Control Not Reportable EPAP Not Reportable IPAP Not Reportable BiPAP Not Reportable Sodium 139 Potassium 3.6 Chloride 99 L Carbon Dioxide 35 H Anion Gap 5 BUN 10 Creatinine 0.38 L Est GFR ( Amer) 199.2 Est GFR (Non-Af Amer) 164.7 BUN/Creatinine Ratio 26.3 H Glucose 89 Calcium 9.7 C-Reactive Protein 4.11 Assessment - Problem List Assessment: Patient Problems COPD with acute exacerbation (Acute) Emphysema lung (Acute) Low back pain (Acute) Essential hypertension (Chronic) H/O carotid endarterectomy (Chronic) Hypercholesteremia (Chronic) Left bundle branch block (Chronic) Tobacco abuse (Chronic) Plan: COPD with acute exacerbation (Acute) Emphysema lung (Acute) She is recovered enough to go home on an oral antibacterial and prednisone taper Low back pain (Acute) This is exacerbated by coughing. This will take time to improve Essential hypertension (Chronic) stable H/O carotid endarterectomy (Chronic) Hypercholesteremia (Chronic) Left bundle branch block (Chronic) Tobacco abuse (Chronic) Counseled to stop She understands her medical status and agrees with discharge plan.
[2017-12-07] MEDS: Potassium Chloride LIQUID* 20 MEQ PACKET PO SCH (09:41)
[2017-12-07] MEDS: Hydrochlorothiazide TAB* 25 MG PO SCH (09:42)
[2017-12-07] MEDS: predniSONE TAB* 20 MG PO SCH (09:42)
[2017-12-07] MEDS: Aspirin EC TAB* 81 MG TAB.EC PO SCH (09:42)
[2017-12-07] MEDS: Psyllium PAK PO SCH (09:42)
[2017-12-07] MEDS: Cholecalciferol TAB* 1000 UNITS PO SCH (09:42)
[2017-12-07] MEDS: guaiFENesin ER TAB 600 MG PO SCH (09:42)
[2017-12-07] MEDS: Atorvastatin* 10 MG TAB PO SCH (09:43)
[2017-12-07 09:45] VITALS: BP 141/48
--- NOTE | 2017-12-07 11:41 | DS ---
DISCHARGE SUMMARY: DATE OF ADMISSION: 12/03/17 DATE OF DISCHARGE: 12/06/17 DISCHARGE DIAGNOSES: 1. Acute exacerbation of chronic obstructive pulmonary disease/emphysema. 2. Low back pain. 3. Tobacco abuse. SECONDARY DIAGNOSES: 1. Hypertension. 2. Dyslipidemia. 3. History of carotid endarterectomy. 4. Left bundle branch block. HISTORY: Carol Armstrong is a 77-year-old right-handed white female. Her presentation is documented in Dr. Tarun Pozo's admitting history and physical, which is part of the electronic medical record. Carol Armstrong lives alone. She has longstanding history of emphysema and has episodes of COPD exacerbation. She continues to smoke cigarettes despite multiple attempts to persuade her to quit. She presented with a 2-week history of increasing cough , sputum production, malaise, and increasing dyspnea. Normally, she can walk to the front door where her newspaper is and return back into the house. It came to the point where she could get to the front door, but not get back in. She also, 2 days before admission, developed severe low back pain; this was exacerbated by coughing and turning in bed. PHYSICAL EXAMINATION ON ADMISSION: Temperature 36.6 Celsius, pulse 97 to 115, respirations 26, blood pressure 173/74, oxygen saturation 89% on room air. Lungs: She had diminished breath sounds throughout. No wheezes or rales. No other significant findings. INVESTIGATIONS: Sodium 137, potassium 3.6, chloride 97, bicarbonate 25, BUN 8, creatinine 0.53, glucose 110, calcium 10.3. Troponin I of 0.01. White count 12.2, hemoglobin 14.9, hematocrit 44.7, platelets 358,000. EKG showed left bundle-branch block pattern. Chest x-ray: Hyperinflation without any infiltrates. Lumbar spine films showed no vertebral compression fractures. INITIAL IMPRESSION: A 77-year-old with chronic obstructive pulmonary disease, emphysema, presenting with an exacerbation and with low back pain. FURTHER INVESTIGATIONS: Renal ultrasound to rule out renal stone disease as cause of back pain was negative. OTHER LAB TESTS: Procalcitonin less than 0.1. C-reactive protein series; on of 37.5, 12/05/17 of 21.6, 12/07/17 of 4.11. ABGs 12/06/17 on nasal cannulae at 2 L, pH 7.51, pCO2 of 45, pO2 of 96, bicarbonate 33.7, base excess 11.3, oxygen saturation 99%. HOSPITAL COURSE: She was treated with IV ceftriaxone and azithromycin, initially methylprednisolone IV and then transferred on to prednisone tablets 40 mg a day. She was given nebulized bronchodilators. Her back pain remained throughout the hospital stay; however, she was able to do more by the day of discharge. It appeared to be markedly exacerbated by coughing and we thought that this was most likely a muscular pain. Her breathing also improved somewhat during the hospital stay. On the penultimate day in the hospital, her oxygen saturation checked at rest and also with ambulation without nasal cannulae and she did not desaturate. On the day of discharge, she still has similar back pain. She continues to cough. Her breathing is somewhat improved. She denies chest pain or palpitations. She is coughing and not bringing up very much sputum. Her digestion is normal with a normal appetite and she has had bowel movements. Urination is normal. PHYSICAL EXAMINATION ON THE DAY OF DISCHARGE: Temperature 97.7, heart rate 85, respirations 17, oxygen saturation 97% on room air, blood pressure 141/40. She had cyanosis. She has palmar erythema and is "a pink puffer." Cardiovascular System: Her pulse was regular, normal character and volume. Venous pressure not elevated. Heart sounds were normal. No added sounds or murmurs. No pedal edema. No carotid bruits. Respiratory System: Chest was over expanded, hyperresonant. Breath sounds were emphysematous, i.e., diminished. No wheezes or crackles. She is using accessory muscles of respiration. Abdomen: Soft, nontender. No masses or organomegaly. Nervous System: She is alert and oriented. Normal speech. Moving all limbs. ASSESSMENT AND PLAN: 1. Acute exacerbation of chronic obstructive pulmonary disease, emphysema. She will continue a 5-day course of azithromycin 250 mg daily and she will also continue a taper of prednisone. I have started her on Advair HFA 2 puffs twice daily using a spacer device. She will follow up with me within a week. 2. Low back pain. As long as she is coughing, she is exacerbating this problem. I anticipate this will improve over time. She has been on high dose steroids and hence if this is discogenic, she has already been on the primary modality for this problem. She is going to use acetaminophen for the pain as she has during the hospital stay. It would be hazardous for her to use an opioid given her respiratory problems. 3. Hypertension. She will continue current medication. 4. Hypercholesterolemia. She will continue current medication. 5. Cigarette cessation. I have on every occasion I had seen her in the hospital discussed this with her. She understands that further tobacco use will likely bring her right back into the hospital or worse. She is polite, but looks like she is not going to follow this advice. DISCHARGE MEDICATIONS: 1. Azithromycin 250 mg daily for 5 days. 2. Advair HFA 115/21 mcg 2 puffs twice daily. 3. Prednisone 5 mg tablet 4 tablets twice daily for 3 days, 4 tablets once daily for 3 days, 2 tablets once daily for 3 days, 1 tablet daily for 3 days, then stop. 4. Cyanocobalamin 500 mcg every other day. 5. Levalbuterol HFA inhaler. 6. Xopenex 1 puff every 6 hours as needed for shortness of breath. 7. Ramipril 10 mg q.h.s. 8. Lovastatin 20 mg q.h.s. 9. Hydrochlorothiazide 12.5 mg q.a.m. 10. Cholecalciferol vitamin D3 1000 units daily. 11. Amlodipine 10 mg daily. 12. Aspirin 81 mg daily. FOLLOWUP: She will have an appointment to see me within a week. [id number]/[facility] #: [id number] MTDD
== END 2017-12-07 11:50 | disposition home or self-care (01) | DRG 192 ==
LOC: ED 19:45 → MED 12-04 00:34
PROVIDERS: ADMIT Internal Medicine; ATTEND Internal Medicine
DX: J43.9 Emphysema, unspecified (principal); M54.5 Low back pain; K59.00 Constipation, unspecified; I10 Essential (primary) hypertension; I44.7 Left bundle-branch block, unspecified; E78.5 Hyperlipidemia, unspecified; F17.210 Nicotine dependence, cigarettes, uncomplicated; M25.511 Pain in right shoulder; G89.29 Other chronic pain; E07.9 Disorder of thyroid, unspecified; H26.9 Unspecified cataract; Z82.49 Family history of ischemic heart disease and other diseases of the circulatory system; Z80.8 Family history of malignant neoplasm of other organs or systems; Z90.710 Acquired absence of both cervix and uterus; Z91.040 Latex allergy status; Z88.0 Allergy status to penicillin; Z91.048 Other nonmedicinal substance allergy status; Z80.3 Family history of malignant neoplasm of breast; Z80.52 Family history of malignant neoplasm of bladder; Z72.89 Other problems related to lifestyle; Z79.82 Long term (current) use of aspirin
CPT/HCPCS: 36415; 36600; 71046; 72100; 76775; 80048; 80053; 82803; 84145; 84484; 85025; 85027; 86140; 87070; 87205; 93005; 99284; A9270-GY; G8978-GP-CI; G8979-GP-CI; J0456; J0696; J1650; J2920; J2930; J7512

== ENCOUNTER 2018-02-15 13:13 | Emergency (ER) | payer MEDICARE ==
--- NOTE | 2018-02-15 15:22 | ED ---
Shortness of Breath - HPI Summary HPI Summary: The pt is a 77 y/o female with a hx of COPD [facility] [place]/o SOB since 9 days ago worsened today. She notes dyspnea at exertion, hyperventilation and cough. She does not use Oxygen at home. She denies a hx of DVT, PE and cardiac problems. She has been seen at [facility] multiple times this year for the same sx. - History of Current Complaint Chief Complaint: EDShortnessOfBreath Time Seen by Provider: 02/15/18 15:09 Hx Obtained From: Patient Onset/Duration: Gradual Onset, Lasting Days - 9 days, Still Present, Worse Since - Today Dyspnea At: Exertion Aggrevating Factors: Nothing Alleviating Factors: Nothing Associated Signs & Symptoms: Cough (Productive) Related History: Similar Episode - Allergy/Home Medications Allergies/Adverse Reactions: Allergies Allergy/AdvReac Type Severity Reaction Status Date / Time iron Allergy Unknown Verified 02/15/18 13:23 Reaction Details latex Allergy Unknown Verified 02/15/18 13:23 Reaction Details Penicillins Allergy Unknown Verified 02/15/18 13:23 Reaction Details PMH/Surg Hx/FS Hx/Imm Hx Previously Healthy: No Endocrine/Hematology History: Reports: Hx Thyroid Disease - no meds Denies: Hx Diabetes, Hx Anemia Cardiovascular History: Reports: Hx Hypercholesterolemia, Hx Hypertension, Hx Rheumatic Fever - as a child, Other Cardiovascular Problems/Disorders - LBBB Respiratory History: Reports: Hx Asthma, Hx Chronic Obstructive Pulmonary Disease (COPD), Other Respiratory Problems/Disorders GI History: Denies: Hx Jaundice History: Denies: Hx Renal Disease Musculoskeletal History: Reports: Other Musculoskeletal History - RIght humerus fracture , apr 2015 Sensory History: Reports: Hx Cataracts - both eyes, Hx Contacts or Glasses - glasses, Hx Deafness Denies: Hx Hearing Aid Opthamlomology History: Reports: Hx Cataracts - both eyes, Hx Contacts or Glasses - glasses - Cancer History Cancer Type, Location and Year: None reported - Surgical History Surgery Procedure, Year, and Place: Bilat. breast benign biopsy. tonsillectomy. appendectomy with hysterectomy. left carotid endarerectomy 2003 Hx Anesthesia Reactions: No Infectious Disease History: No Infectious Disease History: Denies: Traveled Outside the [place] in Last 30 Days - Family History Known Family History: Positive: Hypertension, Other - [place] - Social History Occupation: Retired Lives: Alone Alcohol Use: None Alcohol Amount: 2 drinks a day Hx Substance Use: No Substance Use Type: Reports: None Hx Tobacco Use: Yes Smoking Status (MU): Heavy Every Day Tobacco Smoker Type: Cigarettes Amount Used/How Often: smoking since 18 years old. A pack a day Have You Smoked in the Last Year: Yes Review of Systems Negative: Fever Negative: Chest Pain Positive: Shortness Of Breath, Cough, Other - Dyspnea at exertion, hyperventilation Positive: no symptoms reported All Other Systems Reviewed And Are Negative: Yes Physical Exam - Summary Physical Exam Summary: Appearance: Well appearing, no pain distress Skin: warm, dry, reflects adequate perfusion Head/face: normal Eyes: EOMI, MAXIME ENT: normal Neck: supple, non-tender Respiratory: Occasional bilateral wheezing Cardiovascular: RRR, pulses symmetrical Abdomen: non-tender, soft Musculoskeletal: normal, strength/ROM intact Neuro: normal, sensory motor intact, A&Ox3 Triage Information Reviewed: Yes Vital Signs On Initial Exam: Initial Vitals Temp Pulse Resp BP Pulse Ox 98.2 F 109 20 163/47 93 02/15/18 13:19 02/15/18 13:19 02/15/18 13:19 02/15/18 13:19 02/15/18 13:19 Vital Signs Reviewed: Yes Diagnostics - Vital Signs Vital Signs Temp Pulse Resp BP Pulse Ox 02/15/18 13:19 98.2 F 109 20 163/47 93 - Laboratory Result Diagrams: 02/15/18 15:33 02/15/18 15:33 Lab Statement: Any lab studies that have been ordered have been reviewed, and results considered in the medical decision making process. - Radiology CXR Radiology Interpretation Completed By: Radiologist Summary of Radiographic Findings: IMPRESSION: Chest x-ray findings could be consistent with chronic obstructive pulmonary disease in this otherwise nonacute chest x-ray. The ED physician reviewed this radiology report. - CT Chest/Thorax CTA CT Interpretation Completed By: Radiologist Summary of CT Findings: IMPRESSION: 1. No CT of evidence of pulmonary embolism. 2. Chronic pulmonary findings are consistent with emphysema and/or chronic obstructive pulmonary disease. 3. There are sclerotic compression deformities of the superior endplates of T11 and T12 that were not definitely seen on the December 04, 2017 lateral chest x-ray. Please correlate to acute onset back pain. 4. Additional chronic and degenerative changes described in body the report. IMPRESSION: 1. No CT of evidence of pulmonary embolism. 2. Chronic pulmonary findings are consistent with emphysema and/or chronic obstructive. pulmonary disease. 3. There are sclerotic compression deformities of the superior endplates of T11 and T12. that were not definitely seen on the December 04, 2017 lateral chest x-ray. Please. correlate to acute onset back pain. 4. Additional chronic and degenerative changes described in body the report. IMPRESSION: 1. No CT of evidence of pulmonary embolism. 2. Chronic pulmonary findings are consistent with emphysema and/or chronic obstructive. pulmonary disease. 3. There are sclerotic compression deformities of the superior endplates of T11 and T12. that were not definitely seen on the December 04, 2017 lateral chest x-ray. Please correlate to acute onset back pain. 4. Additional chronic and degenerative changes described in body the report. The ED physician reviewed this radiology report. - EKG 15:26 Cardiac Rate: Tachycardia - 102 bpm EKG Rhythm: Sinus Tachycardia Summary of EKG Findings: LBBB Course/Dx - Course Course Of Treatment: A 77 year-old F presents to the ED with a CC of SOB worsened today. She notes dyspnea at exertion, hyperventilation and cough. She does not use Oxygen at home. A physical exam revealed occasional bilateral wheezing. A CXR is unremarkable. A chest/thorax CTA reveals no acute changes. An EKG reveals sinus tachycardia and LBBB. In the ED course, pt was given Albuterol 2 neb INH, Iohexol 49 ml IV and Methylprednisolone 125 mg IV which improved the symptoms. room air oxygen on ambulation was more than 91 percent so will dc home. - Diagnoses Differential Diagnosis/HQI/PQRI: Positive: Asthma, Bronchitis, COPD Exacerbation , Pulmonary Embolism Provider Diagnoses: COPD exacerbation, Bronchitis Discharge - Sign-Out/Discharge Documenting (check all that apply): Patient Departure - Discharge Plan Condition: Stable Disposition: HOME Prescriptions: Azithromycin TAB* [Zithromax TAB (Z-MILAGROS) 250 mg #6 tabs] 250 mg PO DAILY #4 tab predniSONE TAB* [Deltasone 20 MG TAB*] 40 mg PO DAILY #4 tab Referrals: Robbie Alexander MD [Primary Care Provider] - Additional Instructions: Follow up with PCP in 2 days Return to ED for any new or worsening symptoms - Billing Disposition and Condition Condition: STABLE Disposition: Home - Attestation Statements Document Initiated by Scribe: Yes Documenting Scribe: Princess Urbano Provider For Whom Scribe is Documenting (Include Credential): Dr. Cesar Tripp MD Scribe Attestation: Princess Del Rio , scribed for Dr. Cesar Tripp MD on 02/15/18 at 2052. Scribe Documentation Reviewed: Yes Provider Attestation: The documentation as recorded by the marielosibePrincess accurately reflects the service I personally performed and the decisions made by , Dr. Cesar Tripp MD Status of Scribe Document: Viewed
[2018-02-15] MEDS ORDERED: Albuterol/Ipratropium NEB.SOL* Albuterol 2.5 MG/Ipratropium 0.5 MG 3 ML INH ONE (15:23)
[2018-02-15] MEDS ORDERED: methylPREDNISolone 125 MG* 2 ML VIAL IV ONE (15:23)
[2018-02-15 15:45] LABS: ABS Basophils 0.1 10^3/ul (0-0.2); ABS Eosinophils 0.4 10^3/ul (0-0.6); ABS Lymphocytes 2.1 10^3/ul (1.0-4.8); ABS Monocytes 1.4 10^3/ul (0-0.8); ABS Neutrophils 6.8 10^3/ul (1.5-7.7); ABS Nucleated RBC 0 10^3/ul; Eosinophil % 3.9 %; Hematocrit 43 % (35-47); Hemoglobin 14.6 g/dl (12.0-16.0); Lymphocyte % 19.3 %; Mean Corpuscular HGB Conc 34 g/dl (31-36); Mean Corpuscular Hemoglobin 32 pg (27-31); Mean Corpuscular Volume 95 fL (80-97); Mean Platelet Volume 7.8 fL (7.4-10.4); Nucleated Red Blood Cells % 0; Platelet Count 406 10^3/ul (150-450); Red Blood Count 4.53 10^6/ul (4.00-5.40); Red Cell Distribution Width 14 % (10.5-15); White Blood Count 10.9 10^3/ul (3.5-10.8)
[2018-02-15 15:56] LABS: INR 0.9 (0.77-1.02)
[2018-02-15 16:08] LABS: Albumin 4.3 g/dL (3.2-5.2); Albumin/Globulin Ratio 1.3 (1-3); BUN/Creatinine Ratio 26.3 (8-20); Calcium 10.9 mg/dL (8.6-10.3); EGFR Non-African American 103.1 (>60); Globulin 3.2 g/dL (2-4); Potassium 3.4 mmol/L (3.5-5.0); Total Bilirubin 0.5 mg/dL (0.2-1.0); Total Protein 7.5 g/dL (6.4-8.9)
[2018-02-15] MEDS ORDERED: Iohexol 350* (CONTRAST) 500 ML MDV IV ONE (16:46)
[2018-02-15 17:17] LABS: Urine Appearance Clear; Urine Bacteria 1+ (Absent); Urine Bilirubin Negative (Negative); Urine Blood Negative (Negative); Urine Color Yellow; Urine Glucose Negative (Negative); Urine Ketones Trace (Negative); Urine Nitrite Negative (Negative); Urine Protein 1+(30 mg/dL) (Negative); Urine Red Blood Cell 1+(3-5/hpf) (Absent); Urine Specific Gravity 1.013 (1.010-1.030); Urine Urobilinogen Negative (Negative); Urine White Blood Cell 1+(6-10/hpf) (Absent)
[2018-02-15] MEDS ORDERED: Ibuprofen TAB* 600 MG PO ONE (18:06)
[2018-02-15] MEDS ORDERED: Azithromycin TAB* 250 MG PO ONE (19:04)
[2018-02-15] MEDS ORDERED: Azithromycin TAB* 250 MG ONE (19:17)
[2018-02-15 19:29] VITALS: BP 151/76
== END 2018-02-15 19:28 | disposition home or self-care (01) ==
LOC: ED 13:13
DX: J44.1 Chronic obstructive pulmonary disease with (acute) exacerbation (principal); J40 Bronchitis, not specified as acute or chronic; I44.7 Left bundle-branch block, unspecified; R00.0 Tachycardia, unspecified; E78.00 Pure hypercholesterolemia, unspecified; I10 Essential (primary) hypertension; F17.210 Nicotine dependence, cigarettes, uncomplicated
CPT/HCPCS: 36415; 71045; 71275; 80053; 81003; 81015; 83605; 83880; 84484; 85025; 85610; 85730; 87086; 93005; 99283; A9270-GY; J2930; Q9967

== ENCOUNTER 2018-06-28 13:44 | Observation (INO) | payer MEDICARE ==
[2018-06-28] MEDS ORDERED: NS 0.9% 1000 ML** 1,000 ML IV ONE (13:58)
[2018-06-28] MEDS ORDERED: methylPREDNISolone 125 MG* 2 ML VIAL IV ONE (13:58)
[2018-06-28] MEDS ORDERED: methylPREDNISolone 125 MG* 2 ML VIAL ONE (13:59)
[2018-06-28] MEDS ORDERED: Albuterol/Ipratropium NEB.SOL* Albuterol 2.5 MG/Ipratropium 0.5 MG 3 ML ONE ×2 (14:04→14:15)
[2018-06-28] MEDS: Albuterol/Ipratropium NEB.SOL* Albuterol 2.5 MG/Ipratropium 0.5 MG 3 ML INH SCH ×3 (14:10→14:38)
[2018-06-28 14:22] LABS: ABS Basophils 0.2 10^3/ul (0-0.2); ABS Eosinophils 0.5 10^3/ul (0-0.6); ABS Lymphocytes 1.9 10^3/ul (1.0-4.8); ABS Neutrophils 8.3 10^3/ul (1.5-7.7); ABS Nucleated RBC 0 10^3/ul; Eosinophil % 4.1 %; Hematocrit 42 % (33-41); Hemoglobin 13.8 g/dL (12.0-16.0); Lymphocyte % 16.1 %; Mean Corpuscular HGB Conc 33 g/dL (31-36); Mean Corpuscular Hemoglobin 32 pg (27-31); Mean Corpuscular Volume 96 fL (80-97); Mean Platelet Volume 8.2 fL (7.4-10.4); Nucleated Red Blood Cells % 0.1; Platelet Count 342 10^3/uL (150-450); Red Blood Count 4.39 10^6 /uL (3.70-4.87); Red Cell Distribution Width 14 % (10.5-15); White Blood Count 11.9 10^3/uL (3.5-10.8)
[2018-06-28 14:30] LABS: Activated Partial Thrombo Time 30.6 seconds (26.0-36.3); INR 0.88 (0.82-1.09)
--- NOTE | 2018-06-28 14:33 | ED ---
Respiratory - HPI Summary HPI Summary: Patient is a 77 y/o F brought in by EMS for respiratory distress. Patient uses 2L oxygen at home. EMS gave 4L oxygen resulting in 97-99 O2Sat and reports diminished lower breath sounds but not hearing any wheezes. Patient describes SOB as beginning yesterday and getting worse. She reports productive cough with white phlegm. Patient denies fever. Patient has never been intubated for respiratory failure before, but provided consent for intubation if necessary. PMHx of thyroid disease, hypercholesterolemia, HTN, rheumatic fever, LBBB, asthma, COPD , and right humerus fracture, but no renal disease, DM, or anemia. PSHx of bilaterally breast benign biopsy, tonsillectomy, appendectomy with hysterectomy, and left carotid endarterectomy. FHx of HTN and CA. Patient does not drink or use substances but is a heavy daily tobacco smoker. - History of Current Complaint Chief Complaint: EDRespiratoryDistress Stated Complaint: DIFFICULTY BREATHING PER EMS Time Seen by Provider: 06/28/18 13:55 Hx Obtained From: Patient, EMS Onset/Duration: Lasting Hours - Yesterday, Still Present, Worse Since Current Severity: None Pain Intensity: 0 Character: Cough (Productive) - White phlegm Sputum Amount: Moderate Sputum Color: White Aggravating Factor(s): Nothing Alleviating Factor(s): Nothing Associated Signs and Symptoms: SOB - Allergy/Home Medications Allergies/Adverse Reactions: Allergies Allergy/AdvReac Type Severity Reaction Status Date / Time iron Allergy Unknown Verified 02/15/18 13:23 Reaction Details latex Allergy Unknown Verified 02/15/18 13:23 Reaction Details Penicillins Allergy Unknown Verified 02/15/18 13:23 Reaction Details Home Medications: Home Medications Albuterol HFA INHALER* [Ventolin HFA Inhaler*] 2 puff INH Q4H PRN 06/28/18 [ History Confirmed 06/28/18] Aspirin EC TAB* [Ecotrin EC Low Dose 81 MG*] 81 mg PO DAILY 06/28/18 [History Confirmed 06/28/18] Lovastatin(NF) [Mevacor(NF)] 20 mg PO BEDTIME 06/28/18 [History Confirmed ] Lutein 20 mg PO DAILY 06/28/18 [History Confirmed 06/28/18] Ramipril CAP* [Altace CAP*] 10 mg PO BEDTIME 06/28/18 [History Confirmed ] amLODIPine TAB* [Norvasc 5 mg TAB*] 5 mg PO DAILY 06/28/18 [History Confirmed ] PMH/Surg Hx/FS Hx/Imm Hx Endocrine/Hematology History: Reports: Hx Thyroid Disease - no meds Denies: Hx Diabetes, Hx Anemia Cardiovascular History: Reports: Hx Hypercholesterolemia, Hx Hypertension, Hx Rheumatic Fever - as a child, Other Cardiovascular Problems/Disorders - LBBB Respiratory History: Reports: Hx Asthma, Hx Chronic Obstructive Pulmonary Disease (COPD), Other Respiratory Problems/Disorders GI History: Denies: Hx Jaundice History: Denies: Hx Renal Disease Musculoskeletal History: Reports: Other Musculoskeletal History - RIght humerus fracture , apr 2015 Sensory History: Reports: Hx Cataracts - both eyes, Hx Contacts or Glasses - glasses, Hx Deafness Denies: Hx Hearing Aid Opthamlomology History: Reports: Hx Cataracts - both eyes, Hx Contacts or Glasses - glasses - Cancer History Cancer Type, Location and Year: None reported - Surgical History Surgery Procedure, Year, and Place: Bilat. breast benign biopsy. tonsillectomy. appendectomy with hysterectomy. left carotid endarerectomy 2003 Hx Anesthesia Reactions: No Infectious Disease History: No Infectious Disease History: Denies: Traveled Outside the [place] in Last 30 Days - Family History Known Family History: Positive: Hypertension, Other - CA - Social History Alcohol Use: None Alcohol Amount: 2 drinks a day Hx Substance Use: No Substance Use Type: Reports: None Hx Tobacco Use: Yes Smoking Status (MU): Heavy Every Day Tobacco Smoker Type: Cigarettes Amount Used/How Often: smoking since 18 years old. A pack a day Have You Smoked in the Last Year: Yes Review of Systems Negative: Fever Positive: Shortness Of Breath, Cough - Productive of white phlegm All Other Systems Reviewed And Are Negative: Yes Physical Exam - Summary Physical Exam Summary: VITAL SIGNS: Reviewed. GENERAL: Patient is a very thin female who is lying in tripod position. Patient is in severe distress secondary to respiratory distress. Patient is huffing and puffing. HEAD AND FACE: No signs of trauma. No ecchymosis, hematomas or skull depressions. No sinus tenderness. EYES: PERRLA, EOMI x 2, No injected conjunctiva, no nystagmus. EARS: Hearing grossly intact. Ear canals and tympanic membranes are within normal limits. MOUTH: Oropharynx within normal limits. NECK: Supple, trachea is midline, no adenopathy, no JVD, no carotid bruit, no c- spine tenderness, neck with full ROM. CHEST: Symmetric, no tenderness at palpation LUNGS: Decreased breath sounds bilaterally. Minimal wheezing in base of lungs. CVS: Regular rate and rhythm, S1 and S2 present, no murmurs or gallops appreciated. ABDOMEN: Soft, non-tender. No signs of distention. No rebound no guarding, and no masses palpated. Bowel sounds are normal. EXTREMITIES: FROM in all major joints, no edema, no cyanosis or clubbing. NEURO: Alert and oriented x 3. No acute neurological deficits. Speech is normal and follows commands. SKIN: Dry and warm Triage Information Reviewed: Yes Vital Signs On Initial Exam: Initial Vitals Temp Pulse Resp BP Pulse Ox 99.4 F 120 40 180/84 95 06/28/18 14:03 06/28/18 14:03 06/28/18 14:03 06/28/18 14:03 06/28/18 14:03 Vital Signs Reviewed: Yes Diagnostics - Vital Signs Vital Signs Temp Pulse Resp BP Pulse Ox 06/28/18 14:11 117 27 100 06/28/18 14:03 99.4 F 120 40 180/84 95 - Laboratory Lab Results: Lab Results 06/28/18 Range/Units 14:10 WBC 11.9 H (3.5-10.8) 10^3/uL RBC 4.39 (3.70-4.87) 10^6 /uL Hgb 13.8 (12.0-16.0) g/dL Hct 42 H (33-41) % MCV 96 (80-97) fL MCH 32 H (27-31) pg MCHC 33 (31-36) g/dL RDW 14 (10.5-15) % Plt Count 342 (150-450) 10^3/uL MPV 8.2 (7.4-10.4) fL Neut % (Auto) 69.6 % Lymph % (Auto) 16.1 % [place] % (Auto) 8.7 % Eos % (Auto) 4.1 % Baso % (Auto) 1.5 % Absolute Neuts (auto) 8.3 H (1.5-7.7) 10^3/ul Absolute Lymphs (auto) 1.9 (1.0-4.8) 10^3/ul Absolute Monos (auto) 1.0 H (0-0.8) 10^3/ul Absolute Eos (auto) 0.5 (0-0.6) 10^3/ul Absolute Basos (auto) 0.2 (0-0.2) 10^3/ul Absolute Nucleated RBC 0 10^3/ul Nucleated RBC % 0.1 Result Diagrams: 06/28/18 14:10 06/28/18 14:10 Lab Statement: Any lab studies that have been ordered have been reviewed, and results considered in the medical decision making process. - Radiology CXR Radiology Interpretation Completed By: Radiologist Summary of Radiographic Findings: Stigmata of advanced obstructive lung disease. No acute pulmonary or cardiac process evident. Dr. Mendoza has reviewed this radiology report. - EKG 1444 Cardiac Rate: Tachycardia - 116 BPM EKG Rhythm: Sinus Tachycardia ST Segment: Normal Summary of EKG Findings: Sinus tachycardia at [address] elevations. Re-Evaluation - Re-Evaluation First Eval Re-Evaluation Time: 18:14 Comment: Patient will be admitted to Dr. Pozo with COPD exarcerbation. Patient understands and agrees with this plan. Disposition - Course Assessment/Plan: This patient is a 77 -year-old female who presents to the emergency department with a chief complaint of having shortness of breath. The patient has history of COPD. The patient has significant respiratory distress at arrival. The patient was placed in a cafeteria monitor, we obtained an IV accesses. Patient was given Solu Medrol, multiple DuoNebs and the symptoms slightly improved. Blood test results within normal limits except for the bases of 11.9, chloride 98, glucose 108, calcium 10.7, BP is 110, influenza A and B is negative. ABG shows a pH of 7.4, PCO2 of 50, PO2 80, O2 sat 98.5. Chest x-ray impression: Stigmata of advanced obstructive lung disease. No acute pulmonary or cardiac process evident. I ambulated the patient with 2 L of oxygen however the patient declines to about 89-90%. The patient becomes acutely short of breath. Therefore, I discussed my physical exam and findings with Dr. Pozo from the hospital services. The patient was accepted for admission. The patient is hemodynamically stable alert and oriented 3. - Diagnoses Provider Diagnoses: COPD exacerbation - Physician Notifications Discussed Care Of Patient With: Tarun Pozo Time Discussed With Above Provider: 18:14 Instructed by Provider To: Admit As Inpatient - Discussed patient condition with Dr. Pozo. Dr. Pozo will accept patient for admission to hospital with diagnosis of COPD exacerbation. Discharge - Sign-Out/Discharge Documenting (check all that apply): Patient Departure - Admit Patient Received Moderate/Deep Sedation with Procedure: No - Discharge Plan Condition: Good Disposition: ADMITTED TO [facility] - Billing Disposition and Condition Condition: GOOD Disposition: Admitted to [facility] - Attestation Statements Document Initiated by Terrellibe: Yes Documenting Scribe: Jitendra Youngblood Provider For Whom Nohemi is Documenting (Include Credential): Mushtaq Mendoza MD Scribe Attestation: Jitendra Del Rio, scribed for Mushtaq Mendoza MD on 06/28/18 at 2158. Scribe Documentation Reviewed: Yes Provider Attestation: The documentation as recorded by the Jitendra spence accurately reflects the service I personally performed and the decisions made by me, Mushtaq Mendoza MD Status of Scribjorge Document: Viewed
[2018-06-28 14:43] LABS: Influenza A Molecular NEGATIVE (Negative); Influenza B Molecular NEGATIVE (Negative)
[2018-06-28 14:44] LABS: Troponin I 0.01 ng/mL (<0.04)
[2018-06-28 14:46] LABS: CKMB ng/mL 5.3 ng/mL (0.6-6.3)
[2018-06-28 14:53] LABS: Albumin 4.9 g/dL (3.2-5.2); Albumin/Globulin Ratio 1.6 (1-3); BUN/Creatinine Ratio 21.6 (8-20); C Reactive Protein 1.78 mg/L (<8.01); Calcium 10.7 mg/dL (8.6-10.3); EGFR African American 92.3 (>60); EGFR Non-African American 76.3 (>60); Potassium 3.9 mmol/L (3.5-5.0); Total Bilirubin 0.7 mg/dL (0.2-1.0); Total Protein 7.9 g/dL (6.4-8.9)
[2018-06-28] MEDS ORDERED: Al Hydrox/Mg Hydrox/Simet LIQ* 30 ML UDC PO PRN (19:11)
[2018-06-28] MEDS ORDERED: Acetaminophen TAB* 325 MG PO PRN (19:11)
[2018-06-28] MEDS ORDERED: Albuterol/Ipratropium NEB.SOL* Albuterol 2.5 MG/Ipratropium 0.5 MG 3 ML INH PRN (19:11)
[2018-06-28] MEDS ORDERED: Magnesium Hydroxide LIQ* 30 ML UDC PO PRN (19:11)
[2018-06-28] MEDS ORDERED: Albuterol HFA INHALER* 8 gm MDI INH PRN (19:18)
[2018-06-28] MEDS: Albuterol 2.5 MG/3 ML NEB.SOL* (0.083%) INH PRN (19:39)
--- NOTE | 2018-06-28 20:46 | HP ---
CC: Dr. Alexander * HISTORY AND PHYSICAL: DATE OF ADMISSION: 06/28/18 PRIMARY CARE PROVIDER: Dr. Alexander. OTHER PROVIDER: Dr. Bonner, Pulmonology. ATTENDING PHYSICIAN: Dr. Tarun Pozo * (dictated by Zoe Lynn NP). CHIEF COMPLAINT: Shortness of breath. HISTORY OF PRESENT ILLNESS: Ms. Armstrong is a 77-year-old female with a past medical history significant for COPD, hypertension, left bundle branch block, hyperlipidemia, systolic murmur; who presented to the emergency department today with complaints of shortness of breath and increase in oxygen requirements. The patient reports shortness of breath started several days ago , but was worse this morning. She reports aggravating factors include any exertion. She reports alleviating symptoms include resting. The patient denies any associated symptoms including chest pain, dizziness, nausea, vomiting , diarrhea, diaphoresis, fever, anorexia. She does report she has had about 4 to 5 days of "hot/cold sweats spells." She also reports mild nasal congestion, which is baseline for her. Finally, she also reports a cough that is productive of white sputum, which she reports is also baseline for her. While in the emergency room, it was noted that the patient was requiring additional supplemental oxygen to maintain her oxygen saturations. Specifically , the patient wears 2 L nasal cannula at home and she was requiring 4 L of oxygen. Nurses report that she was unable to ambulate without getting severely short of breath. In addition, while in the emergency department, the patient had a chest x-ray which revealed stigmata of obstructive lung disease. Her labs revealed a mild leukocytosis of 11.9 and a mildly elevated BNP at 110. Given these results and the patient's inability to ambulate without becoming severely short of breath, the hospitalists were asked to evaluate for admission. PAST MEDICAL HISTORY: 1. COPD. 2. Murmur. 3. Hypertension. 4. Left bundle branch block. 5. Hyperlipidemia. 6. History of diverticular bleed. PAST SURGICAL HISTORY: 1. Carotid endarterectomy on the left. 2. Hysterectomy. 3. Appendectomy. 4. Bilateral lumpectomy. 5. Tonsillectomy. HOME MEDICATIONS: 1. Albuterol HFA 2 puffs inhalation q.4 hours p.r.n. 2. Ramipril 10 mg p.o. at bedtime. 3. Lutein 20 mg p.o. at bedtime. 4. Lovastatin 20 mg p.o. at bedtime. 5. Vitamin B12 500 mcg p.o. every other day. 6. Vitamin D3 1000 units p.o. daily. 7. Amlodipine 5 mg p.o. daily. 8. Advair 2 puffs inhalation b.i.d. ALLERGIES: IRON, LATEX, PENICILLIN. FAMILY HISTORY: The patient reports her father of bladder cancer. Mother passed of breast cancer. She denies any respiratory, cardiac, or diabetes history in her family. SOCIAL HISTORY: The patient is retired from a [employer] company. She is . She has no children. She lives alone. Her surrogate decision maker will be her niece, Kaykay, who can be reached at [phone]. The patient is a 61-year 2-pack per day smoker, who continues to smoke, but has been able to decrease her use to 6 cigarettes per day. The patient reports she drinks about 2 to 3 drinks nightly. No recreational drug use. REVIEW OF SYSTEMS: A 14-point review of systems was performed and all the pertinent positive and negative findings are in the HPI. All other systems are negative. PHYSICAL EXAMINATION GENERAL: Ms. Armstrong is a 77-year-old female who is underweight, who is sitting on the ED stretcher. Appears to be in no acute distress. Appears stated age. VITAL SIGNS: Temp 99.4, HR 106, RR 28, O2 saturation is 96% on 4 L, BP is 126/ 66. HEENT: EOMs intact. PERRLA. Oral mucosa is moist without lesions. Posterior pharynx is clear. NECK: Full range of motion. No lymphadenopathy. RESPIRATORY: Symmetrical chest expansion. No accessory muscle use. The patient has expiratory wheeze sporadically throughout. The patient's aeration is mildly decreased. No rhonchi or rubs. CARDIAC: S1, S2 present. Regular rate and rhythm. Systolic murmur noted. No rubs or gallops. ABDOMEN: Soft, nontender to palpation. Bowel sounds are normoactive throughout. EXTREMITIES: Skin is warm and smooth bilaterally. No edema. No clubbing or cyanosis. Pedal pulses 2+ bilaterally. MUSCULOSKELETAL: Full range of motion. No pain or deformities. NEURO: Awake, alert, and oriented x4. Motor strength is 5/5 in the upper and lower extremities. SKIN: Grossly intact. DIAGNOSTIC STUDIES/LAB DATA: WBC 11.9, hemoglobin 13.8, hematocrit 42, platelets 342. Sodium 138, potassium 3.4, chloride 98, carbon dioxide 30, BUN 16, creatinine 0.74, glucose 108, lactic acid 1.1. BNP 110. Chest x-ray, impression: Stigmata of advanced obstructive lung disease. No acute pulmonary or cardiac process is evident. EKG, impression: Sinus tachycardia. No ST changes. ASSESSMENT AND PLAN: Ms. Armstrong is a 77-year-old female with a past medical history significant for chronic obstructive pulmonary disease, heart murmur, hypertension, left bundle branch block, hyperlipidemia, history of diverticular bleed; who presented to the emergency department today with complaints of shortness of breath. The patient will be admitted OBV. 1. Shortness of breath. On the patient's differential includes a chronic obstructive pulmonary disease exacerbation given the patient's wheeze and sputum production. She was given methylprednisolone 125 IV in the ED. I will continue methylprednisolone 40 mg IV q.8 hours. In addition, I have also added azithromycin to her regimen for the added benefit of anti-inflammatory properties. Also on the differential includes cardiac in nature. The patient does have a slightly elevated BNP and also has a systolic murmur. I am unable to find a recent echo in the chart. I have ordered an echocardiogram to be completed tomorrow. We will also provide the patient with albuterol nebulizers and DuoNeb as needed. In addition, we will continue her home inhalers and supplemental O2. 2. Chronic obstructive pulmonary disease. As mentioned above, this could be a chronic obstructive pulmonary disease exacerbation. We will treat with steroids and antibiotics. The patient also requests a consult with her impression printer while she is inpatient. I discussed Pulmonology consult and possibly if he is unable to see her, we could schedule a followup with him as he is only here in the office few days a week. The patient states understanding. 3. Systolic murmur. The patient reports she was told she had a murmur in the past, but she does not see a washing machine striper and I do not see a recent echocardiogram. Given her sudden shortness of breath and elevated BNP, I have ordered an echocardiogram. 4. Hypertension. The patient has history of hypertension. I will continue the patient's Norvasc and ramipril while she is hospitalized. It should be noted that on the patient's med rec, she does have HCTZ 12.5 mg p.o. q.a.m. She reports she is not taking this since October of 2017, as she has not been able to obtain a refill from her mail and script service. I will hold this at this time and we can restart it at discharge if deemed necessary. 5. Hyperlipidemia. We will continue the patient's lovastatin. 6. FEN: The patient will be provided with a regular diet. I do not think the patient requires IV fluids at this time as she is taking p.o. and she appears euvolemic. 7. Code status: The patient is a full code. 8. DVT prophylaxis: Based on the DVT Risk Assessment, the patient is high risk. I will order subcu heparin. TIME SPENT: Approximately 65 minutes was spent on this admission, greater than half the time was spent with the patient and niece obtaining my history, performing physical exam, and reviewing my plan of care. The case has been reviewed with my attending, Dr. Pozo, who is in agreement with my plan of care. Reviewed by ZOE LYNN NP 07/04/18 @ 1935 [id number]/CPS #: [id number] KARO
[2018-06-28 20:52] LABS: Urine Appearance Cloudy; Urine Bacteria 1+ (Absent); Urine Bilirubin Negative (Negative); Urine Blood Negative (Negative); Urine Color Yellow; Urine Glucose Negative (Negative); Urine Ketones 1+ (Negative); Urine Nitrite Negative (Negative); Urine Protein 2+(100 mg/dL) (Negative); Urine Red Blood Cell Trace(0-2/hpf) (Absent); Urine Specific Gravity 1.011 (1.010-1.030); Urine Squamous Epithelial Cell Present (Absent); Urine Urobilinogen Negative (Negative); Urine White Blood Cell Trace(0-5/hpf) (Absent)
[2018-06-28] MEDS ORDERED: Azithromycin 500 mg/250 ml NS 500 MG/250 ML BAG IVPB ONE (21:00)
[2018-06-28] MEDS ORDERED: Atorvastatin* 10 MG TAB PO SCH (21:00)
[2018-06-28] MEDS ORDERED: Azithromycin 500 mg/250 mL NS IVPB ONE (21:00)
[2018-06-28] MEDS: methylPREDNISolone SOD 40 MG* 1 ML VIAL IV SCH (22:04)
[2018-06-28] MEDS: Heparin VIAL(*) 5000 UNITS/ML VIAL (FIVE THOUSAND) SUBCUT SCH (22:10)
[2018-06-28] MEDS: Ramipril CAP* 10 MG PO SCH ×2 (22:10→22:12)
[2018-06-28] MEDS ORDERED: LORazepam TAB(*) 1 MG PO SCH (23:45)
[2018-06-29] MEDS: Mometasone/Formoter 200/5 MDI INH SCH ×3 (00:29→20:17)
[2018-06-29] MEDS: methylPREDNISolone SOD 40 MG* 1 ML VIAL IV SCH (04:32)
[2018-06-29] MEDS: Heparin VIAL(*) 5000 UNITS/ML VIAL (FIVE THOUSAND) SUBCUT SCH ×3 (04:32→21:45)
[2018-06-29 06:40] LABS: Calcium 9.8 mg/dL (8.6-10.3); Potassium 3.7 mmol/L (3.5-5.0)
[2018-06-29 06:46] LABS: BUN/Creatinine Ratio 27.4 (8-20); EGFR African American 113.2 (>60); EGFR Non-African American 93.6 (>60)
[2018-06-29 07:49] LABS: ABS Basophils 0 10^3/ul (0-0.2); ABS Eosinophils 0 10^3/ul (0-0.6); ABS Lymphocytes 0.6 10^3/ul (1.0-4.8); ABS Monocytes 0.1 10^3/ul (0-0.8); ABS Neutrophils 5.6 10^3/ul (1.5-7.7); ABS Nucleated RBC 0 10^3/ul; Eosinophil % 0 %; Hematocrit 37 % (33-41); Hemoglobin 12.3 g/dL (12.0-16.0); Lymphocyte % 9.1 %; Mean Corpuscular HGB Conc 33 g/dL (31-36); Mean Corpuscular Hemoglobin 32 pg (27-31); Mean Corpuscular Volume 96 fL (80-97); Mean Platelet Volume 8.4 fL (7.4-10.4); Nucleated Red Blood Cells % 0; Platelet Count 263 10^3/uL (150-450); Red Blood Count 3.85 10^6 /uL (3.70-4.87); Red Cell Distribution Width 13 % (10.5-15); White Blood Count 6.3 10^3/uL (3.5-10.8)
--- NOTE | 2018-06-29 08:27 | PN ---
Subjective - Subjective Reason for Note: Progress Note History: Brooklyn Ha is a primary care patient at my office. She continues to smoke 6 cigarettes per day by her own admission. She has COPD and has home oxygen. She follows with Dr. Bonner's team as an outpatient. On this occasion, she states she has had a productive cough for 3 days and increased dyspnea. When the EMT came apparently the green tube on her home oxygenator was crimped. However, she continues to have increased dyspnea this morning - when she went to the bathroom it took her a while to recover, sitting on the bed and wheezing. She denies chest pain, palpitations, edema. She has no orthopnea or paroxysmal nocturnal dyspnea. She denies fevers and sweats. Her appetite remains reasonable. She has no digestive or urinary symptoms. She has occasional anxiety, but denies depression or other psyhological symptoms. Active Problems: Active Problems COPD with acute exacerbation (Acute) J44.1 Emphysema lung (Acute) J43.9 Current Medications: Current Medications Acetaminophen (Tylenol Tab*) 650 mg PO Q4H PRN PRN Reason: FEVER/PAIN Al Hydrox/Mg Hydrox/Simethicone (Maalox Plus*) 30 ml PO Q6H PRN PRN Reason: INDIGESTION Albuterol (Ventolin 2.5 Mg/3 Ml Neb.Meera*) 2.5 mg INH [id number] AWAKE PRN PRN Reason: sob/wheezing Last Admin: 06/28/18 19:39 Dose: 2.5 mg Albuterol (Ventolin Hfa Inhaler*) 2 puff INH Q4H PRN PRN Reason: SOB/WHEEZING Albuterol/Ipratropium (Duoneb (Albuterol 2.5 Mg/Ipratropium 0.5 Mg)) 1 neb INH [id number] AWAKE PRN PRN Reason: sob/wheexing Amlodipine Besylate (Norvasc Tab*) 5 mg PO DAILY JAYLA Aspirin (Aspirin Ec Tab*) 81 mg PO DAILY JAYLA Atorvastatin Calcium (Lipitor*) 5 mg PO DAILY JAYLA Heparin Sodium (Porcine) (Heparin Vial(*)) 5,000 units SUBCUT Q8HR JAYLA Last Admin: 06/29/18 04:32 Dose: 5,000 units Azithromycin 250 mg/ Sodium (Chloride) 250 mls @ 250 mls/hr IVPB Q24H [facility] Stop: 07/02/18 21:59 Lorazepam (Ativan Tab(*)) 0 - [address] [facility] PROTOCOL [facility]; Protocol Magnesium Hydroxide (Milk Of Myah Liq*) 30 ml PO Q4H PRN PRN Reason: CONSTIPATION Methylprednisolone Sodium Succinate (Solu-Medrol 40 Mg) 40 mg IV Q8H [facility] Last Admin: 06/29/18 04:32 Dose: 40 mg Mometasone Furoate/Formoterol Fumar (Dulera 200/5 Mdi*) 2 puff INH BID JAYLA; Protocol Last Admin: 06/29/18 07:43 Dose: 2 puff Ramipril (Altace Cap*) 10 mg PO BEDTIME [facility] Last Admin: 06/28/18 22:12 Dose: 10 mg Home Medications: Home Medications Medication Instructions Recorded Confirmed Type Cholecalciferol (Vitamin D3) 1,000 unit PO 1000 06/02/15 06/28/18 History [Vitamin D3] Cyanocobalamin (Vitamin B-12) 500 mcg PO EVERY OTHER DAY 06/02/15 06/28/18 History [B-12] Hydrochlorothiazide TAB* 12.5 mg PO QAM 06/02/15 06/28/18 History [Hydrodiuril TAB*] Fluticas/Salmet 115/21 HFA(NF) 2 puff INH BID #1 mdi 12/07/17 06/28/18 Rx [Advair HFA 115/21 (NF)] Albuterol HFA INHALER* [Ventolin 2 puff INH Q4H PRN 06/28/18 06/28/18 History HFA Inhaler*] Aspirin EC TAB* [Ecotrin EC Low 81 mg PO DAILY 06/28/18 06/28/18 History Dose 81 MG*] Lovastatin(NF) [Mevacor(NF)] 20 mg PO BEDTIME 06/28/18 06/28/18 History Lutein 20 mg PO DAILY 06/28/18 06/28/18 History Ramipril CAP* [Altace CAP*] 10 mg PO BEDTIME 06/28/18 06/28/18 History amLODIPine TAB* [Norvasc 5 mg TAB*] 5 mg PO DAILY 06/28/18 06/28/18 History Allergies: Allergies Allergy/AdvReac Type Severity Reaction Status Date / Time iron Allergy Unknown Verified 02/15/18 13:23 Reaction Details latex Allergy Unknown Verified 02/15/18 13:23 Reaction Details Penicillins Allergy Unknown Verified 02/15/18 13:23 Reaction Details Objective - Vital Signs Vital Signs: Vital Signs 06/28/18 06/28/18 06/28/18 14:03 14:07 14:11 Temperature 99.4 F Pulse Rate 120 116 117 Respiratory 40 29 27 Rate Blood Pressure 180/84 180/84 (mmHg) O2 Sat by Pulse 95 96 100 Oximetry 06/28/18 06/28/18 06/28/18 14:23 14:31 14:33 Temperature Pulse Rate 117 115 116 Respiratory 41 34 38 Rate Blood Pressure 196/90 186/92 (mmHg) O2 Sat by Pulse 94 98 100 Oximetry 06/28/18 06/28/18 06/28/18 14:43 14:53 15:00 Temperature Pulse Rate 111 116 111 Respiratory 33 14 36 Rate Blood Pressure 120/104 165/123 (mmHg) O2 Sat by Pulse 100 94 100 Oximetry 06/28/18 06/28/18 06/28/18 15:03 15:13 15:23 Temperature Pulse Rate 104 102 102 Respiratory 40 28 32 Rate Blood Pressure 169/77 153/76 167/68 (mmHg) O2 Sat by Pulse 100 100 100 Oximetry 06/28/18 06/28/18 06/28/18 15:33 15:43 15:53 Temperature Pulse Rate 101 102 100 Respiratory 20 35 31 Rate Blood Pressure 163/75 147/70 142/74 (mmHg) O2 Sat by Pulse 100 100 100 Oximetry 06/28/18 06/28/18 06/28/18 16:00 16:03 16:13 Temperature Pulse Rate 101 100 101 Respiratory 28 21 22 Rate Blood Pressure 134/103 144/80 (mmHg) O2 Sat by Pulse 100 100 100 Oximetry 06/28/18 06/28/18 06/28/18 16:23 16:33 16:43 Temperature Pulse Rate 100 99 97 Respiratory 19 20 17 Rate Blood Pressure 131/63 141/72 134/60 (mmHg) O2 Sat by Pulse 100 100 100 Oximetry 06/28/18 06/28/18 06/28/18 16:53 17:03 17:12 Temperature Pulse Rate 100 102 112 Respiratory 20 28 21 Rate Blood Pressure 121/57 137/62 154/81 (mmHg) O2 Sat by Pulse 100 100 97 Oximetry 06/28/18 06/28/18 06/28/18 17:13 17:23 17:33 Temperature Pulse Rate 112 105 102 Respiratory 34 34 22 Rate Blood Pressure 161/67 135/76 128/62 (mmHg) O2 Sat by Pulse 97 99 100 Oximetry 06/28/18 06/28/18 06/28/18 17:43 17:53 18:04 Temperature Pulse Rate 105 104 Respiratory 19 32 24 Rate Blood Pressure 146/71 153/79 163/76 (mmHg) O2 Sat by Pulse 97 98 Oximetry 06/28/18 06/28/18 06/28/18 18:23 18:34 18:43 Temperature Pulse Rate 109 103 107 Respiratory 23 21 24 Rate Blood Pressure 160/79 157/61 147/79 (mmHg) O2 Sat by Pulse 98 98 97 Oximetry 06/28/18 06/28/18 06/28/18 18:53 19:00 19:03 Temperature Pulse Rate 102 104 103 Respiratory 19 30 23 Rate Blood Pressure 146/66 156/68 (mmHg) O2 Sat by Pulse 97 96 98 Oximetry 06/28/18 06/28/18 06/28/18 19:14 19:23 19:33 Temperature Pulse Rate 107 105 102 Respiratory 28 23 24 Rate Blood Pressure 126/66 123/86 153/61 (mmHg) O2 Sat by Pulse 96 97 98 Oximetry 06/28/18 06/28/18 06/28/18 19:39 19:43 19:53 Temperature Pulse Rate 100 100 106 Respiratory 16 36 23 Rate Blood Pressure 143/81 133/76 (mmHg) O2 Sat by Pulse 100 100 96 Oximetry 06/28/18 06/28/18 06/28/18 20:01 20:03 20:13 Temperature Pulse Rate 103 105 99 Respiratory 28 37 24 Rate Blood Pressure 140/72 135/59 (mmHg) O2 Sat by Pulse 97 97 98 Oximetry 06/28/18 06/28/18 06/28/18 20:23 20:29 20:30 Temperature 98.3 F Pulse Rate 101 103 101 Respiratory 21 24 22 Rate Blood Pressure 119/63 134/56 134/56 (mmHg) O2 Sat by Pulse 99 100 100 Oximetry 06/28/18 06/28/18 06/28/18 20:33 20:44 20:53 Temperature Pulse Rate 102 99 98 Respiratory 25 28 22 Rate Blood Pressure 110/58 111/54 112/51 (mmHg) O2 Sat by Pulse 98 98 98 Oximetry 06/28/18 06/28/18 06/28/18 21:01 21:03 21:14 Temperature Pulse Rate 97 99 98 Respiratory 22 20 24 Rate Blood Pressure 125/56 108/51 (mmHg) O2 Sat by Pulse 97 97 97 Oximetry 06/28/18 06/28/18 06/28/18 21:24 21:45 23:51 Temperature 98.3 F 97.7 F 98.1 F Pulse Rate 101 103 98 Respiratory 22 22 18 Rate Blood Pressure 134/56 138/67 109/38 (mmHg) O2 Sat by Pulse 100 97 100 Oximetry 06/29/18 06/29/18 06/29/18 00:00 03:01 03:25 Temperature 98.2 F Pulse Rate 87 Respiratory 18 16 16 Rate Blood Pressure 123/44 (mmHg) O2 Sat by Pulse 100 Oximetry 06/29/18 07:46 Temperature Pulse Rate 89 Respiratory 24 Rate Blood Pressure (mmHg) O2 Sat by Pulse 97 Oximetry - Intake and Output Intake and Output: Intake & Output 06/26/18 06/27/18 06/28/18 06/29/18 11:59 11:59 11:59 11:59 Intake Total 1 Balance 1 Weight 86 lb 14.4 oz Intake: IV Fluids 1 Oral 0 Other: Estimated Void Medium # Voids 1 ADLs: Meal Record Start: 06/28/18 21: 45 Freq: DAILY@0900,1400,1800 Status: Active Protocol: Created 06/28/18 21:45 System (Rec: 06/28/18 21:45 System [id number]) Intake and Output Start: 06/28/18 14: 08 Freq: Status: Active Protocol: Created 06/28/18 14:08 System (Rec: 06/28/18 14:08 System [id number]) Intake and Output Start: 06/28/18 21: 45 Freq: DAILY@0600,1400,2200 Status: Active Protocol: Created 06/28/18 21:45 System (Rec: 06/28/18 21:45 System [id number]) Document 06/28/18 22:00 [id number] (Rec: 06/28/18 23:57 [id number]) Document 06/29/18 03:58 [id number] (Rec: 06/29/18 03:58 [id number] [place] [id number]) - Physical Exam General Physical Exam Comment: 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 No: Percussion Note Resonant - hyper-resonant, Vessicular Breath Sounds - emphysematous, Crackles Heart Rate and Rhythm: Tachycardia JVP: Elevated Additional Cardiovascular: Yes: Normal Heart Sounds, Heart Murmur. No: Pedal Edema Abdominal Exam: Yes: Soft, Bowel Sounds Present. No: Abdominal Tenderness - Extremities Cranial Nerves II-XII Intact: Yes Limbs: Abnormal Power - frail - Neuro Orientation: A/O x3 Speech: Normal Results - Results Lab Results: Laboratory Results - last 24 hr 06/28/18 06/28/18 06/28/18 14:05 14:10 14:10 WBC 11.9 H RBC 4.39 Hgb 13.8 Hct 42 H MCV 96 MCH 32 H MCHC 33 RDW 14 Plt Count 342 MPV 8.2 Neut % (Auto) 69.6 Lymph % (Auto) 16.1 [place] % (Auto) 8.7 Eos % (Auto) 4.1 Baso % (Auto) 1.5 Absolute Neuts (auto) 8.3 H Absolute Lymphs (auto) 1.9 Absolute Monos (auto) 1.0 H Absolute Eos (auto) 0.5 Absolute Basos (auto) 0.2 Absolute Nucleated RBC 0 Nucleated RBC % 0.1 INR (Anticoag Therapy) 0.88 APTT 30.6 ABG pH 7.40 ABG pCO2 50 H ABG pO2 80 ABG HCO3 28.7 ABG O2 Saturation 98.5 H ABG Base Excess 5.0 H Sodium Potassium Chloride Carbon Dioxide Anion Gap BUN Creatinine Est GFR ( Amer) Est GFR (Non-Af Amer) BUN/Creatinine Ratio Glucose Lactic Acid Calcium Total Bilirubin AST ALT Alkaline Phosphatase Total Creatine Kinase CK-MB (CK-2) Troponin I C-Reactive Protein B-Natriuretic Peptide Total Protein Albumin Globulin Albumin/Globulin Ratio Urine Color Urine Appearance Urine pH Ur Specific [place] Urine Protein Urine Ketones Urine Blood Urine Nitrate Urine Bilirubin Urine Urobilinogen Ur Leukocyte Esterase Urine WBC (Auto) Urine RBC (Auto) Ur Squamous Epith Cells Urine Bacteria Urine Glucose Influenza A (Rapid) Influenza B (Rapid) 06/28/18 06/28/18 06/28/18 14:10 14:10 14:10 WBC RBC Hgb Hct MCV MCH MCHC RDW Plt Count MPV Neut % (Auto) Lymph % (Auto) [place] % (Auto) Eos % (Auto) Baso % (Auto) Absolute Neuts (auto) Absolute Lymphs (auto) Absolute Monos (auto) Absolute Eos (auto) Absolute Basos (auto) Absolute Nucleated RBC Nucleated RBC % INR (Anticoag Therapy) APTT ABG pH ABG pCO2 ABG pO2 ABG HCO3 ABG O2 Saturation ABG Base Excess Sodium 138 Potassium 3.9 Chloride 98 L Carbon Dioxide 30 Anion Gap 10 BUN 16 Creatinine 0.74 Est GFR ( Amer) 92.3 Est GFR (Non-Af Amer) 76.3 BUN/Creatinine Ratio 21.6 H Glucose 108 H Lactic Acid 1.1 Calcium 10.7 H Total Bilirubin 0.70 AST 31 ALT 19 Alkaline Phosphatase 68 Total Creatine Kinase 85 CK-MB (CK-2) 5.3 Troponin I 0.01 C-Reactive Protein 1.78 B-Natriuretic Peptide 110 H Total Protein 7.9 Albumin 4.9 Globulin 3.0 Albumin/Globulin Ratio 1.6 Urine Color Urine Appearance Urine pH Ur Specific [place] Urine Protein Urine Ketones Urine Blood Urine Nitrate Urine Bilirubin Urine Urobilinogen Ur Leukocyte Esterase Urine WBC (Auto) Urine RBC (Auto) Ur Squamous Epith Cells Urine Bacteria Urine Glucose Influenza A (Rapid) Influenza B (Rapid) 06/28/18 06/28/18 06/29/18 14:15 20:35 06:13 WBC RBC Hgb Hct MCV MCH MCHC RDW Plt Count MPV Neut % (Auto) Lymph % (Auto) [place] % (Auto) Eos % (Auto) Baso % (Auto) Absolute Neuts (auto) Absolute Lymphs (auto) Absolute Monos (auto) Absolute Eos (auto) Absolute Basos (auto) Absolute Nucleated RBC Nucleated RBC % INR (Anticoag Therapy) APTT ABG pH ABG pCO2 ABG pO2 ABG HCO3 ABG O2 Saturation ABG Base Excess Sodium 137 Potassium 3.7 Chloride 103 Carbon Dioxide 24 Anion Gap 10 BUN 17 Creatinine 0.62 Est GFR ( Amer) 113.2 Est GFR (Non-Af Amer) 93.6 BUN/Creatinine Ratio 27.4 H Glucose 138 H Lactic Acid Calcium 9.8 Total Bilirubin AST ALT Alkaline Phosphatase Total Creatine Kinase CK-MB (CK-2) Troponin I C-Reactive Protein B-Natriuretic Peptide Total Protein Albumin Globulin Albumin/Globulin Ratio Urine Color Yellow Urine Appearance Cloudy Urine pH 6.0 Ur Specific [place] 1.011 Urine Protein 2+(100 mg/dl) A Urine Ketones 1+ A Urine Blood Negative Urine Nitrate Negative Urine Bilirubin Negative Urine Urobilinogen Negative Ur Leukocyte Esterase Negative Urine WBC (Auto) Trace(0-5/hpf) Urine RBC (Auto) Trace(0-2/hpf) Ur Squamous Epith Cells Present A Urine Bacteria 1+ A Urine Glucose Negative Influenza A (Rapid) Negative Influenza B (Rapid) Negative 06/29/18 07:38 WBC 6.3 RBC 3.85 Hgb 12.3 Hct 37 MCV 96 MCH 32 H MCHC 33 RDW 13 Plt Count 263 MPV 8.4 Neut % (Auto) 88.7 Lymph % (Auto) 9.1 [place] % (Auto) 1.7 Eos % (Auto) 0 Baso % (Auto) 0.5 Absolute Neuts (auto) 5.6 Absolute Lymphs (auto) 0.6 L Absolute Monos (auto) 0.1 Absolute Eos (auto) 0 Absolute Basos (auto) 0 Absolute Nucleated RBC 0 Nucleated RBC % 0 INR (Anticoag Therapy) APTT ABG pH ABG pCO2 ABG pO2 ABG HCO3 ABG O2 Saturation ABG Base Excess Sodium Potassium Chloride Carbon Dioxide Anion Gap BUN Creatinine Est GFR ( Amer) Est GFR (Non-Af Amer) BUN/Creatinine Ratio Glucose Lactic Acid Calcium Total Bilirubin AST ALT Alkaline Phosphatase Total Creatine Kinase CK-MB (CK-2) Troponin I C-Reactive Protein B-Natriuretic Peptide Total Protein Albumin Globulin Albumin/Globulin Ratio Urine Color Urine Appearance Urine pH Ur Specific [place] Urine Protein Urine Ketones Urine Blood Urine Nitrate Urine Bilirubin Urine Urobilinogen Ur Leukocyte Esterase Urine WBC (Auto) Urine RBC (Auto) Ur Squamous Epith Cells Urine Bacteria Urine Glucose Influenza A (Rapid) Influenza B (Rapid) Radiology Results: Patient Name: ZACH HA Medical Record#: [id number] Ordering Physician: Mushtaq Mendoza MD Acct.#: [id number] : 1940 Age: 77 Sex: F Location: EMERGENCY DEPARTMENT Exam Date: 06/28/18 1359 ADM Status: PRE ER Order Information: CHEST AP OR PORT Accession Number: [id number] CPT: 22480 Indication: Extreme shortness of breath. Chronic obstructive pulmonary disease. Comparison: February 15, 2018 CT. Technique: Upright AP 1414 hours Report: Elevated lung volumes and both diffuse mild prominence of the interstitial markings and patchy rarefaction of the mid to upper lung zone interstitial markings. Bilateral apical pleural-parenchymal scarring. No focal pulmonary lesion, compelling alveolar consolidation, pleural effusion, pneumothorax. The heart, pulmonary vasculature, and mediastinal contours are unremarkable. IMPRESSION: #. Stigmata of advanced obstructive lung disease. No acute pulmonary or cardiac process evident. <Electronically signed by Mushtaq Klein MD in OV> 06/28/18 1433 Dictated By: Mushtaq Klein MD Dictated Date/Time: 06/28/18 1433 Transcribed Date/Time: 06/28/18 1430 Copy to: EKG Report: Sinus tachycardia, VEs 116 VT 128 QTc 437 QRS axis 63 - examined personally Other Results/Reports: Spirometry 06/16/18 FVC 1.54 (54%) FEV1 0.67 (31%) FEV1 FVC 44 (59%) FEF 25-75 0.29 (18%) PEFR 1.33 (25%) DLCO and Pleth couldn't be reproduced cf 05/10/12. Bronchodilator - no help. Assessment - Problem List Assessment: Patient Problems COPD with acute exacerbation (Acute) Emphysema lung (Acute) Essential hypertension (Chronic) H/O carotid endarterectomy (Chronic) Hypercholesteremia (Chronic) Left bundle branch block (Chronic) Tobacco abuse (Chronic) Plan: COPD with acute exacerbation (Acute)Emphysema lung (Acute) She has an acute exacerbation of COPD. Her 06/16/2018 spirometry is in the chart - she didn't respond to bronchodilators and had low scores throughout. She is now taking methylprednisolone. I will change this to oral prednisone as there is no evidence of an advantage of parenteral route. I will change her to oral azithromycin. I will obtain a pulmonology consultation. I think she has an elevated BNP due to her cor pulmonale. I will continue with the echocardiogram for completeness. We will try to mobilize her today and watch her O2 saturations, I am hoping she will be able to go home tomorrow. Tobacco abuse (Chronic) 10 min conversation. She admits to smoking 6 cigarettes per day and "switches off the oxygen". I told her to stop. She has many excuses. She won't take chantix (one friend became suicidal and another homicidal). She agrees to bupropion and a nicotine patch. She was defensively aggressive about this. Secondary diagnoses Essential hypertension (Chronic) on target - continue current Rx H/O carotid endarterectomy (Chronic) Hypercholesteremia (Chronic) Left bundle branch block (Chronic) I discussed the above with the patient. She agrees to the management plan. She needs to be in the hospital 1 more [address] I [address]. Bonner and discussed her case
[2018-06-29] MEDS: Aspirin EC TAB* 81 MG TAB.EC PO SCH (11:23)
[2018-06-29] MEDS: Azithromycin TAB* 250 MG PO SCH (11:23)
[2018-06-29] MEDS: amLODIPine TAB* 5 MG PO SCH (11:23)
[2018-06-29] MEDS: predniSONE TAB* 20 MG PO SCH ×2 (11:24→21:45)
[2018-06-29] MEDS: Atorvastatin* 10 MG TAB PO SCH (11:24)
[2018-06-29] MEDS: BuPROPion XL* 150 MG TAB.XL PO SCH (11:25)
[2018-06-29] MEDS: Albuterol 2.5 MG/3 ML NEB.SOL* (0.083%) INH PRN (11:40)
--- NOTE | 2018-06-29 12:38 | ECHO ---
*[facility]* [place] [address] Fax #: [phone] Transthoracic Echocardiogram Patient: Nathaniel, Height: 65 in / Carol A 165.1 cm : 1940 Weight: 89.8 lb / Study Date: 06/29/2018 40.8 kg Age: 77 BP: 123 / 44 Gender: F BMI/BSA: 15 kg/m^2 HR: 102 bpm / 1.41 m^2 *Cable Swager: * Hilaria Monk [facility] *Referring Physician: * Oly High *Reading Physician: * Nae Puga MD Indications: Cardiac murmur, unspecified (R01.1). History: PMH: COPD exacerbation. LBBB. Risk factors: Current tobacco use. Hypertension. Dyslipidemia. Conclusions Summary: 1. Left ventricle: Systolic function is hyperdynamic. The estimated ejection fraction is 65-70%. There is interventricular dyssynchrony. 2. Right ventricle: The cavity size is mildly dilated. Systolic function is hyperdynamic. Systolic pressure is mildly increased: 40 mmHg. 3. All valves appear structurally normal with good function. 4. Tricuspid valve: There is mild regurgitation. 5. No prior echocardiogram to compare. Study data: Transthoracic echocardiogram. Procedure: Transthoracic echocardiography was performed. Image quality was fair. The study was technically limited due to poor acoustic window availability. Complete 2D, spectral Doppler, and color flow Doppler. Location: Bedside. Patient status: Inpatient. Patient room number: 416-2. Rhythm: Tachycardia. Findings Left ventricle: The cavity size is below normal. Wall thickness is mildly increased. Systolic function is hyperdynamic. The estimated ejection fraction is 65-70%. Wall motion is normal; there are no regional wall motion abnormalities. There is interventricular dyssynchrony. Doppler parameters are consistent with abnormal left ventricular relaxation (grade 1 diastolic dysfunction). Right ventricle: The cavity size is mildly dilated. Systolic function is hyperdynamic. Systolic pressure is mildly increased. Left atrium: The atrium is mildly dilated. Right atrium: The atrium is normal in size. Mitral valve: The leaflets are mildly thickened. There is no evidence of stenosis. There is trivial regurgitation. The mean diastolic gradient is 3.0 mm Hg. Aortic valve: The valve is trileaflet. The leaflets are normal thickness. There is no evidence of stenosis. There is no significant regurgitation. The ratio of LVOT to aortic valve peak velocity is 0.8. The ratio of LVOT to aortic valve mean velocity is 0.89. The mean systolic gradient is 4.0 mm Hg. The peak systolic gradient is 9.0 mm Hg. Tricuspid valve: The leaflets are normal thickness. There is no evidence of stenosis. There is mild regurgitation. Pulmonic valve: The leaflets are normal thickness. There is no evidence of stenosis. There is trivial regurgitation. The peak systolic gradient is 10.0 mm Hg. Aorta: Ascending aorta: The ascending aorta is appears normal. Aortic arch: The aortic arch is appears normal. The aortic root is not dilated. Pericardium: There is no significant pericardial effusion. Pulmonary arteries: Not well visualized. Systemic veins: Inferior vena cava: The vessel is at the upper limits of normal in size. The respirophasic diameter changes are in the normal range (>= 50%). Measurements Left ventricle Value Ref Aortic valve Value Ref SHA, LAX (L) 2.8 cm 3.8 - 5.2 Awilda diam, ED 1.8 cm ----- ESD, LAX 2.7 cm 2.2 - 3.5 Peak v, S 1.52 m/sec ----- FS, LAX (L) 6 % 27 - 45 Mean v, S 0.95 m/sec ----- PW, ED, LAX (H) 1.2 cm 0.6 - 0.9 VTI, S 31.4 cm ----- SHA (L) 2.8 cm 3.8 - 5.2 Mean grad, S 4.0 mm Hg ----- ESD 2.7 cm 2.2 - 3.5 Peak grad, S 9.0 mm Hg ----- FS (L) 6 % 27 - 45 PW, ED (H) 1.2 cm 0.6 - 0.9 Mitral valve Value Ref EF (L) 13 % 54 - 74 Peak E 0.72 m/sec ----- Mass 94 g 66 - 150 Peak A 1.47 m/sec ----- Mass/bsa 67 g/m^2 44 - 88 Mean v, D 0.88 m/sec ----- Mass/ht 56.85 g/m --------- Decel time 183 ms ----- Mass/ht^2.7 24.24 g/m^2.7 --------- PHT 120 ms ----- E', lat awilda, TDI (L) 4.6 cm/sec >=10.0 Mean grad, D 3.0 mm Hg ---- - E/e', lat awilda, 16 --------- Peak E/A ratio 0.5 ----- TDI E', med awilda, TDI (L) 4.9 cm/sec >=7.0 Pulmonic valve Value Ref E/e', med awilda, 15 --------- Peak v, S 1.55 m/sec ----- TDI Peak grad, S 10.0 mm Hg ----- E', avg, TDI 4.8 cm/sec --------- E/e', avg, TDI (H) 15 <=14 Tricuspid valve Value Ref TR peak v (H) 2.81 m/sec <=2.8 LVOT Value Ref Peak RV-RA grad, S 32 mm Hg ----- Peak mono, S 1.21 m/sec --------- Max TR mono 2.81 m/sec ----- Mean mono, S 0.84 m/sec --------- Peak grad, S 6 mm Hg --------- Aortic root Value Ref Mean grad, S 3 mm Hg --------- Root diam 2.8 cm <3.7 Ventricular septum Value Ref Ascending aorta Value Ref IVS, ED, LAX (H) 1.1 cm 0.6 - 0.9 AAo AP diam, S 2.5 cm ----- Right ventricle Value Ref Aortic arch Value Ref SHA, LAX 2.1 cm --------- Arch diam 2.2 cm ----- SHA minor ax, A4C (H) 4.1 cm 1.9 - 3.5 mid Decending aorta Value Ref Pressure, S 40 mm Hg --------- Rene peak mono 0.76 m/sec ----- Left atrium Value Ref Pulmonary artery Value Ref AP dim, ES 2.70 cm 2.70 - Pressure, S 30.0 mm Hg ----- 3.80 ML dim, A4C 4.4 cm --------- Inferior vena cava Value Ref Vol/bsa, ES, 1-p 39 ml/m^2 11 - 40 Diam 2.1 cm ----- A4C Vol/bsa, ES, A/L (H) 37 ml/m^2 16 - 34 Right atrium Value Ref SI dim, ES 3.5 cm 3.4 - 5.3 ML dim, ES, A4C 4.0 cm 2.6 - 4.4 Estimated RAP 8 mm Hg --------- Legend: (L) and (H) harjinder values outside specified reference range. Prepared and electronically signed by Nae Puga MD 06/29/2018 12:36
--- NOTE | 2018-06-29 19:42 | CONS ---
PULMONARY CONSULTATION REPORT: DATE OF CONSULT: 06/29/18 CONSULTATION REQUESTED BY: Dr. Robbie Alexander. REASON FOR CONSULT: Evaluation of COPD exacerbation. HISTORY OF PRESENT ILLNESS: The patient is a 77-year-old female with history of COPD, significant smoking history, continues to smoke. The patient presents for evaluation of worsening shortness of breath. The patient has been having gradually worsening shortness of breath with exertion. The patient also reported cough that is productive of light phlegm which is at baseline. The patient denies chest pain, nausea, vomiting, dizziness, diaphoresis, recent fevers, or anorexia. She has reported chills, hot and cold sweat spells. The patient was found to be having increased FiO2 requirements from her baseline at 2 L to 4 L per minute in the ED. The patient also was significantly dyspneic with minimal movement and was admitted for acute COPD exacerbation. She was found to have mild leukocytosis at 11.9 and BNP of 110. The patient was seen and examined at bedside. The patient reported slight improvement in shortness of breath. She is basically dyspneic with talking. The patient reports occasional anxiety, but denied depression or other symptoms. Reports improvement with nebulizers and steroids. PAST MEDICAL HISTORY: 1. COPD. 2. Heart murmur. 3. Hypertension. 4. Left bundle branch block. 5. Dyslipidemia. 6. Diverticular bleed. PAST SURGICAL HISTORY: 1. Carotid endarterectomy on the left. 2. Hysterectomy. 3. Appendectomy. 4. Bilateral lumpectomy. 5. Tonsillectomy. MEDICATIONS AT HOME: 1. Albuterol. 2. Ramipril. 3. Lutein. 4. Lovastatin. 5. Vitamin B12. 6. Vitamin D3. 7. Amlodipine. 8. Advair. ALLERGIES: IRON, LATEX, PENICILLIN. FAMILY HISTORY: Father of bladder cancer. Mother passed of breast cancer. SOCIAL HISTORY: Retired. She has significant smoking history with 60 pack years, 2 packs per day for 60 years, currently smoking 6 cigarettes per day. She drinks about 2 to 3 drinks at night. No drug abuse. REVIEW OF SYSTEMS: All 14 systems reviewed as per HPI. PHYSICAL EXAM: The patient in bed, in no apparent distress. Vital Signs: Temperature 98.2, pulse 96 beats per minute, respiratory rate 16 per minute, O2 sat 97% to 100% on 2 L, blood pressure 143/50. HEENT: Pupils equal, reactive to light. Mucous membranes moist. Lungs: Diminished air entry bilaterally. Scattered wheeze present. Cardiovascular: S1, S2 present. Abdomen: Soft, nontender, nondistended. Bowel sounds present. Extremities: Normal range of motion. No edema. Skin: No rash. Neuro: No focal deficits. Slightly anxious. DIAGNOSTIC STUDIES/LAB DATA: WBC count 11.9 on admission, decreased to 6.3 today; hemoglobin within normal limits. Blood gas analysis showed compensated respiratory acidosis. Sodium 137, potassium 3.7, chloride 103, bicarb 24, BUN 17, creatinine 0.62. BNP slightly elevated at 110. Influenza A and B negative. Blood cultures negative to date. Chest x-ray on admission was personally reviewed by me - no evidence of acute airspace opacities, evidence of significant hyperinflation noted. IMPRESSION: 77-year-old female with history of chronic obstructive pulmonary disease, admitted for worsening shortness of breath being treated for acute chronic obstructive pulmonary disease exacerbation. The patient is still symptomatic, FiO2 requirements are currently back to her baseline. She is on bronchodilators q.4 hours. She is also on steroids to help with acute chronic obstructive pulmonary disease exacerbation. She is on 20 mg b.i.d. of prednisone. She is also on antibiotics for community-acquired pneumonia coverage/bronchitis coverage. Smoking cessation education and counseling was performed during today's visit at bedside. The patient is willing to quit even though realizes it to be the tough thing for her. She is on nicotine patch now. She was also started on Wellbutrin. She understands that she can also use lozenges if she is more short of breath. Thank you for allowing me to participate in the care of Ms. Medina. Will follow up with you. [id number]/[facility] #: [id number] KARO
[2018-06-29] MEDS ORDERED: Nicotine Patch Removal NOTE PATCH OFF SCH (21:00)
[2018-06-29] MEDS ORDERED: Azithromycin IV(*) 250 MG in NS 0.9% 250 ML* 250 ML IVPB SCH (21:00)
[2018-06-29] MEDS: Ramipril CAP* 10 MG PO SCH (21:45)
[2018-06-30] MEDS: Heparin VIAL(*) 5000 UNITS/ML VIAL (FIVE THOUSAND) SUBCUT SCH (06:37)
[2018-06-30] MEDS ORDERED: Nicotine PATCH 21 MG/24 HR* PATCH TRANSDERM SCH (08:00)
--- NOTE | 2018-06-30 08:22 | PN ---
Subjective - Subjective Reason for Note: Discharge Note History: Discharge summary Brooklyn Armstrong was helped by the flutter valve. She continues to cough and have dyspnea, but she is back to her usual FIO2. Dr. Bonner saw her and has endorsed the management plan. She has a normal appetite, normal bowel movements, no problems with urination. She has had no chest pain or fevers. Active Problems: Active Problems COPD with acute exacerbation (Acute) J44.1 Emphysema lung (Acute) J43.9 Current Medications: Current Medications Acetaminophen (Tylenol Tab*) 650 mg PO Q4H PRN PRN Reason: FEVER/PAIN Al Hydrox/Mg Hydrox/Simethicone (Maalox Plus*) 30 ml PO Q6H PRN PRN Reason: INDIGESTION Albuterol (Ventolin 2.5 Mg/3 Ml Neb.Meera*) 2.5 mg INH [id number] AWAKE PRN PRN Reason: sob/wheezing Last Admin: 06/29/18 11:40 Dose: 2.5 mg Albuterol (Ventolin Hfa Inhaler*) 2 puff INH Q4H PRN PRN Reason: SOB/WHEEZING Last Admin: 06/29/18 20:18 Dose: 2 puff Albuterol/Ipratropium (Duoneb (Albuterol 2.5 Mg/Ipratropium 0.5 Mg)) 1 neb INH [id number] AWAKE PRN PRN Reason: sob/wheexing Amlodipine Besylate (Norvasc Tab*) 5 mg PO DAILY [facility] Last Admin: 06/29/18 11:23 Dose: 5 mg Aspirin (Aspirin Ec Tab*) 81 mg PO DAILY [facility] Last Admin: 06/29/18 11:23 Dose: 81 mg Atorvastatin Calcium (Lipitor*) 5 mg PO DAILY [facility] Last Admin: 06/29/18 11:24 Dose: 5 mg Azithromycin (Zithromax Tab*) 250 mg PO DAILY [facility] Last Admin: 06/29/18 11:23 Dose: 250 mg Bupropion HCl (Wellbutrin Xl *) 150 mg PO DAILY [facility] Last Admin: 06/29/18 11:25 Dose: 150 mg Heparin Sodium (Porcine) (Heparin Vial(*)) 5,000 units SUBCUT Q8HR [facility] Last Admin: 06/30/18 06:37 Dose: 5,000 units Lorazepam (Ativan Tab(*)) 0 - 6 mg PO .PER [facility] PROTOCOL [facility]; Protocol Magnesium Hydroxide (Milk Of Magnesia Liq*) 30 ml PO Q4H PRN PRN Reason: CONSTIPATION Mometasone Furoate/Formoterol Fumar (Dulera 200/5 Mdi*) 2 puff INH BID [facility]; Protocol Last Admin: 06/29/18 20:17 Dose: 2 puff Nicotine (Nicotine Patch 21 Mg/24 Hr*) 1 patch TRANSDERM DAILY@0800 [facility] Pharmacy Profile Note (Nicotine Patch Removal Note*) 1 note PATCH OFF 2100 [facility] Last Admin: 06/29/18 21:55 Dose: Not Given Prednisone (Deltasone Tab*) 20 mg PO BID [facility] Last Admin: 06/29/18 21:45 Dose: 20 mg Ramipril (Altace Cap*) 10 mg PO BEDTIME [facility] Last Admin: 06/29/18 21:45 Dose: 10 mg Home Medications: Home Medications Medication Instructions Recorded Confirmed Type Cholecalciferol (Vitamin D3) 1,000 unit PO 1000 06/02/15 06/28/18 History [Vitamin D3] Cyanocobalamin (Vitamin B-12) 500 mcg PO EVERY OTHER DAY 06/02/15 06/28/18 History [B-12] Hydrochlorothiazide TAB* 12.5 mg PO QA 06/02/15 06/28/18 History [Hydrodiuril TAB*] Fluticas/Salmet 115/21 HFA(NF) 2 puff INH BID #1 mdi 12/07/17 06/28/18 Rx [Advair HFA 115/21 (NF)] Albuterol HFA INHALER* [Ventolin 2 puff INH Q4H PRN 06/28/18 06/28/18 History HFA Inhaler*] Aspirin EC TAB* [Ecotrin EC Low 81 mg PO DAILY 06/28/18 06/28/18 History Dose 81 MG*] Lovastatin(NF) [Mevacor(NF)] 20 mg PO BEDTIME 06/28/18 06/28/18 History Lutein 20 mg PO DAILY 06/28/18 06/28/18 History Ramipril CAP* [Altace CAP*] 10 mg PO BEDTIME 06/28/18 06/28/18 History amLODIPine TAB* [Norvasc 5 mg TAB*] 5 mg PO DAILY 06/28/18 06/28/18 History Allergies: Allergies Allergy/AdvReac Type Severity Reaction Status Date / Time iron Allergy Unknown Verified 02/15/18 13:23 Reaction Details latex Allergy Unknown Verified 02/15/18 13:23 Reaction Details Penicillins Allergy Unknown Verified 02/15/18 13:23 Reaction Details Objective - Vital Signs Vital Signs: Vital Signs 06/29/18 06/29/18 06/29/18 10:53 11:42 14:00 Temperature 98.2 F 96.8 F Pulse Rate 96 90 96 Respiratory 16 18 24 Rate Blood Pressure 143/53 120/56 (mmHg) O2 Sat by Pulse 100 97 94 Oximetry 06/29/18 06/29/18 06/29/18 15:04 16:21 18:52 Temperature 98.9 F 98.7 F 97.9 F Pulse Rate 97 96 96 Respiratory 18 32 20 Rate Blood Pressure 109/39 109/39 141/43 (mmHg) O2 Sat by Pulse 100 100 100 Oximetry 06/29/18 06/29/18 06/30/18 20:00 20:22 00:20 Temperature 98.2 F Pulse Rate 87 83 Respiratory 16 16 22 Rate Blood Pressure 122/50 (mmHg) O2 Sat by Pulse 98 100 Oximetry 06/30/18 06/30/18 06/30/18 03:38 07:42 08:13 Temperature 97.7 F 97.9 F Pulse Rate 74 82 Respiratory 20 18 Rate Blood Pressure 136/44 155/47 (mmHg) O2 Sat by Pulse 100 100 Oximetry - Intake and Output Intake and Output: Intake & Output 06/27/18 06/28/18 06/29/18 06/30/18 11:59 11:59 11:59 11:59 Intake Total 1 780 Balance 1 780 Weight 86 lb 14.4 oz Intake: IV Fluids 1 Oral 0 780 Other: Estimated Void Medium Small # Bowel Movements 1 0 Estimated Stool Amount Large Large # Voids 1 0 ADLs: Meal Record Start: 06/28/18 21: 45 Freq: DAILY@0900,1400,1800 Status: Active Protocol: Created 06/28/18 21:45 System (Rec: 06/28/18 21:45 System [id number]) Document 06/29/18 09:00 [id number] (Rec: 06/29/18 09:42 [id number] MED-C09) Document 06/29/18 13:22 [id number] (Rec: 06/29/18 13:23 [id number] MED-C11) Document 06/29/18 18:00 [id number] (Rec: 06/29/18 18:01 [id number] MED-C09) Intake and Output Start: 06/28/18 14: 08 Freq: Status: Active Protocol: Created 06/28/18 14:08 System (Rec: 06/28/18 14:08 System [id number]) Intake and Output Start: 06/28/18 21: 45 Freq: DAILY@0600,1400,2200 Status: Active Protocol: Created 06/28/18 21:45 System (Rec: 06/28/18 21:45 System [id number]) Document 06/28/18 22:00 [id number] (Rec: 06/28/18 23:57 [id number] MED-C11) Document 06/29/18 03:58 [id number] (Rec: 06/29/18 03:58 [id number] MED-C11) Document 06/29/18 13:22 [id number] (Rec: 06/29/18 13:23 [id number] MED-C11) Document 06/29/18 21:39 [id number] (Rec: 06/29/18 21:40 [id number] MED-C02) Document 06/30/18 05:30 [id number] (Rec: 06/30/18 05:31 [id number] MED-C02) - Physical Exam General Physical Exam Comment: She is in no acute distress. She is feeling cold and using a blanket. General: Yes Cyanosis, No Jaundice, No Clubbing Lungs and Chest: Yes: Chest Expansion Full, Chest Expansion Symetrica, Use of Accessory Muscles. No: Percussion Note Resonant - hyperresonant, Vessicular Breath Sounds - emphysematous, Crackles, Wheezes, Respiratory Distress Heart Rate and Rhythm: Regular Additional Cardiovascular: Yes: Normal Heart Sounds. No: Heart Murmur, Pedal Edema Abdominal Exam: Yes: Soft. No: Distention, Abdominal Tenderness Assessment - Problem List Assessment: Patient Problems COPD with acute exacerbation (Acute) Emphysema lung (Acute) Essential hypertension (Chronic) H/O carotid endarterectomy (Chronic) Hypercholesteremia (Chronic) Left bundle branch block (Chronic) Tobacco abuse (Chronic) Plan: She is close to baseline. I will discharge her on a reducing scale of prednisone. She has an appt with Dr. Bonner next week for follow up. I discussed the use of a spacer device for her MDIs at home. She will complete her course of azithromycin
[2018-06-30] MEDS: Mometasone/Formoter 200/5 MDI INH SCH (08:25)
[2018-06-30] MEDS: Aspirin EC TAB* 81 MG TAB.EC PO SCH (09:08)
[2018-06-30] MEDS: Atorvastatin* 10 MG TAB PO SCH (09:08)
[2018-06-30] MEDS: amLODIPine TAB* 5 MG PO SCH (09:08)
[2018-06-30] MEDS: predniSONE TAB* 20 MG PO SCH (09:08)
[2018-06-30] MEDS: Azithromycin TAB* 250 MG PO SCH (09:10)
[2018-06-30] MEDS: BuPROPion XL* 150 MG TAB.XL PO SCH (09:10)
[2018-06-30 16:20] VITALS: BP 138/44
--- NOTE | 2018-06-30 23:41 | DS ---
CC: Dr. Mahi Bonner * DISCHARGE SUMMARY: DATE OF ADMISSION: 06/28/18 DATE OF DISCHARGE: 07/01/18 DISCHARGE DIAGNOSIS: Acute exacerbation of chronic obstructive pulmonary disease/emphysema. COMORBIDITIES: Tobacco abuse. SECONDARY DIAGNOSES: 1. Essential hypertension. 2. History of carotid artery endarterectomy. 3. Hypercholesterolemia. 4. Left bundle branch block. 5. Tobacco abuse. HISTORY: Carol Armstrong is a 77-year-old right-handed white female. She has longstanding history of tobacco-related COPD. Her presentation is documented in the history and physical by Oly High, nurse practitioner. In short, she usually has home oxygen. She continues to smoke 6 cigarettes a day. She has a 4 to 5 day history of "spells" of increasing shortness of breath , cough and requiring increased oxygen requirements. PHYSICAL EXAMINATION AT PRESENTATION: Temperature 99.4, heart rate 106, respiratory rate 28, oxygen saturation 96% on 4 L. Blood pressure 126/66. She had expiratory wheeze throughout her chest, mildly decreased aeration. No rhonchi or rubs. Heart was normal. INVESTIGATIONS: White count 11.9, hemoglobin 13.8, hematocrit 42, platelets 342. Sodium 138, potassium 3.4, chloride 98, bicarbonate 30, BUN 16, creatinine 0.74, glucose 108. BNP 110. Chest x-ray had found signs of COPD and emphysema. EKG: Sinus tachycardia. INITIAL IMPRESSION: Shortness of breath, acute exacerbation of chronic obstructive pulmonary disease. OTHER INVESTIGATIONS: ABGs, pH 7.4, pCO2 50, O2 80, base excess 5.0. CRP was 1.78. Serology was negative for flu. Urinalysis: 1+ ketones, 2+ protein. Transthoracic echocardiogram: Ejection fraction 65% to 70%, intraventricular dyssynchrony, mildly dilated right ventricle, hyperdynamic systolic function, systolic pressure mildly increased at 40 mmHg, normal valves, mild tricuspid regurgitation. CONSULTATIONS: Dr. Mahi Bonner on 06/29/18. Her consultation note is part of the electronic record. Her impression is COPD exacerbation. She agreed with the current management. HOSPITAL COURSE: I transferred the patient to prednisone by mouth 20 mg twice a day instead of parenteral methylprednisolone and changed her from azithromycin intravenously to oral azithromycin. I had lengthy discussions with her about tobacco cessation. I gave her a prescription and started her on bupropion XL 150 mg daily, Nicotine patch 21 mg daily. Teaching was reinforced by the hospital staff. On the day of discharge, she is feeling much better. She is back on her usual FiO2 of oxygen. She tried a flutter valve which helped her with a cough. She had one episode of feeling little cold and short of breath, but otherwise is back to normal with a normal appetite. She has had no complications following her treatment. PHYSICAL EXAMINATION ON THE DAY OF DISCHARGE: She remains tachypneic. Vital Signs: Temperature 97.9, pulse 82, oxygen saturation on 2 L 100%, blood pressure 155/47. She has no clubbing or adenopathy. Cardiovascular System: Pulse is regular, normal character and volume. Heart sounds are normal. No added sounds or murmurs. No pedal edema. Respiratory System: Chest expansion was symmetric. Percussion hyperresonant. Breath sounds were emphysematous. No crackles or wheezes. Abdomen was benign. She was alert and oriented. ASSESSMENT AND PLAN: 1. Acute exacerbation of chronic obstructive pulmonary disease. I started this patient on a course of prednisone, which we will taper in over just a week. I have also given her a completion course of azithromycin. She will user her spacer device with her home MDIs. She will use her usual FiO2 of 2 L of oxygen via nasal cannula. She will follow as an outpatient with Dr. Bonner. 2. Tobacco abuse. She has had extensive counseling during this hospital stay. I have prescribed for her Nicotine patch 21 mg a day and bupropion XL 150 mg daily. 3. Other comorbidities; hypertension, dyslipidemia, are under control. DISCHARGE MEDICATIONS: 1. Azithromycin 250 mg daily for 4 days. 2. Prednisone 20 mg twice daily for 3 days, 20 mg daily for 2 days, 10 mg daily for 3 days, and then 5 mg daily for 3 days and then stop. 3. Bupropion 150 mg XL 1 daily. 4. Nicotine patch 21 mg for 24 hours, change daily. 5. Vitamin B12 500 mcg every other day. 6. Hydrochlorothiazide 12.5 mg q.a.m. 7. Vitamin D3 1000 units daily. 8. Fluticasone/salmeterol 115/21 two puffs twice daily using a spacer device. 9. Albuterol HFA inhaler 2 puffs every 4 hours as needed with a spacer. 10. Ramipril 10 mg q.h.s. 11. Lutein 20 mg daily. 12. Lovastatin 20 mg q.h.s. 13. Aspirin 81 mg a day. 14. Amlodipine 5 mg daily. She will follow with Dr. Bonner as an outpatient. [id number]/[facility] #: [id number] MTDD
== END 2018-06-30 14:15 | disposition home or self-care (01) ==
LOC: ED 13:44 → MED 19:11
PROVIDERS: ADMIT Internal Medicine; ATTEND Internal Medicine
DX: J44.1 Chronic obstructive pulmonary disease with (acute) exacerbation (principal); I10 Essential (primary) hypertension; I25.10 Atherosclerotic heart disease of native coronary artery without angina pectoris; J43.9 Emphysema, unspecified; E78.00 Pure hypercholesterolemia, unspecified; I44.7 Left bundle-branch block, unspecified; F17.210 Nicotine dependence, cigarettes, uncomplicated; Z79.82 Long term (current) use of aspirin; Z88.0 Allergy status to penicillin; R06.02 Shortness of breath; R05 Cough; R01.1 Cardiac murmur, unspecified
CPT/HCPCS: 36415; 71045; 80048; 80053; 81003; 81015; 82550; 82553; 82803; 83605; 83880; 84484; 85025; 85610; 85730; 86140; 87040; 87086; 93005; 93306; 94640; 96365; 96372; 96375; 99285; 99406; A9270-GY; G0378; J0456; J1644; J2920; J2930; J7512

== ENCOUNTER 2018-09-09 11:27 | Emergency (ER) | payer MEDICARE ==
[2018-09-09] MEDS ORDERED: methylPREDNISolone 125 MG* 2 ML VIAL IV ONE (11:28)
[2018-09-09] MEDS ORDERED: Albuterol/Ipratropium NEB.SOL* Albuterol 2.5 MG/Ipratropium 0.5 MG 3 ML INH ONE ×2 (11:28→13:47)
--- NOTE | 2018-09-09 11:36 | ED ---
Shortness of Breath - HPI Summary HPI Summary: A 78 y/o female brought in by [facility] ambulance presents to [facility] with a chief complaint of SOB today. Per EMS, the patient was at home when she had SOB, so she took Spiriva and did not get much relief. She also had some chest heaviness and a productive cough with clear phlegm. Her O2 Sat was at 93 on 2L O2 but after her nebulizer treatment her O2 Sat salty to 99 and her chest heaviness resolved. In the ED her SOB is a little better and she has no CP, but is coughing up clear phlegm. She also reports that she has been feeling hot and cold. At triage she rated her pain as a 0/10 in severity. She has a long Hx of COPD, and a Hx of CHF. She has been seeing Dr. Bonner, vp director of creative strategy, more often this year. She says that she still smokes 2 cigarettes a day. - History of Current Complaint Hx Obtained From: Patient, EMS Onset/Duration: Sudden Onset, Lasting Hours, Still Present Timing: Constant Current Severity: Moderate Dyspnea At: Rest Aggravating Factors: Nothing Alleviating Factors: EMS Tx, Oxygen Associated Signs & Symptoms: Cough (Productive), Chills - Allergy/Home Medications Allergies/Adverse Reactions: Allergies Allergy/AdvReac Type Severity Reaction Status Date / Time iron Allergy Unknown Verified 02/15/18 13:23 Reaction Details latex Allergy Unknown Verified 02/15/18 13:23 Reaction Details Penicillins Allergy Unknown Verified 02/15/18 13:23 Reaction Details Home Medications: Home Medications Spiriva Inhaler DEVICE* [Tiotropium Inhaler DEVICE*] 1.25 mcg PO DAILY 09/09/18 [History Confirmed 09/09/18] PMH/Surg Hx/FS Hx/Imm Hx Endocrine/Hematology History: Reports: Hx Thyroid Disease - no meds Denies: Hx Diabetes, Hx Anemia Cardiovascular History: Reports: Hx Hypercholesterolemia, Hx Hypertension, Hx Rheumatic Fever - as a child, Other Cardiovascular Problems/Disorders - LBBB Respiratory History: Reports: Hx Asthma, Hx Chronic Obstructive Pulmonary Disease (COPD), Other Respiratory Problems/Disorders GI History: Denies: Hx Jaundice History: Denies: Hx Renal Disease Musculoskeletal History: Reports: Other Musculoskeletal History - RIght humerus fracture , apr 2015 Sensory History: Reports: Hx Cataracts - both eyes, Hx Contacts or Glasses - glasses, Hx Deafness Denies: Hx Hearing Aid Opthamlomology History: Reports: Hx Cataracts - both eyes, Hx Contacts or Glasses - glasses - Cancer History Cancer Type, Location and Year: None reported - Surgical History Surgery Procedure, Year, and Place: Bilat. breast benign biopsy. tonsillectomy. appendectomy with hysterectomy. left carotid endarerectomy 2003 Hx Anesthesia Reactions: No - Family History Known Family History: Positive: Hypertension, Other - [place] - Social History Alcohol Use: None Alcohol Amount: 2 drinks a day Hx Substance Use: No Substance Use Type: Reports: None Hx Tobacco Use: Yes Smoking Status (MU): Heavy Every Day Tobacco Smoker Type: Cigarettes Amount Used/How Often: smoking since 18 years old. A pack a day Have You Smoked in the Last Year: Yes Review of Systems Positive: Chills. Negative: Fever Positive: Shortness Of Breath, Cough All Other Systems Reviewed And Are Negative: Yes Physical Exam - Summary Physical Exam Summary: VITAL SIGNS: Reviewed. GENERAL: Patient is a very thin, elderly FEMALE who is lying in the stretcher in acute distress secondary to respiratory distress but is able to speak in full sentences. HEAD AND FACE: No signs of trauma. No ecchymosis, hematomas or skull depressions. No sinus tenderness. EYES: PERRLA, EOMI x 2, No injected conjunctiva, no nystagmus. EARS: Hearing grossly intact. Ear canals and tympanic membranes are within normal limits. MOUTH: Oropharynx within normal limits. Dry oral mucosa. NECK: Supple, trachea is midline, no adenopathy, no JVD, no carotid bruit, no c- spine tenderness, neck with full ROM. CHEST: Symmetric, no tenderness at palpation. LUNGS: Diffuse expiratory wheezing. CVS: Regular rate and rhythm, S1 and S2 present, no murmurs or gallops appreciated. ABDOMEN: Soft, non-tender. No signs of distention. No rebound, no guarding, and no masses palpated. Bowel sounds are normal. EXTREMITIES: FROM in all major joints, no edema, no cyanosis or clubbing. NEURO: Alert and oriented x 3. No acute neurological deficits. Speech is normal and follows commands. SKIN: Dry and warm. Triage Information Reviewed: Yes Vital Signs Reviewed: Yes Diagnostics - Laboratory Result Diagrams: 09/09/18 11:42 09/09/18 11:42 Lab Statement: Any lab studies that have been ordered have been reviewed, and results considered in the medical decision making process. - Radiology CXR Radiology Interpretation Completed By: Radiologist Summary of Radiographic Findings: HYPERINFLATION, CONSISTENT WITH COPD. NO ACTIVE CARDIOPULMONARY DISEASE. ED physician has reviewed this imaging report. - EKG 11:43 Cardiac Rate: NL - 96 bpm EKG Rhythm: Sinus Rhythm Summary of EKG Findings: EKG at 11:43 shows NSR at 96 bpm, left bundle branch block, no ST elevation. Course/Dx - Course Assessment/Plan: A 78 y/o female brought in by [facility] ambulance presents to [facility] with a chief complaint of SOB today. Per EMS, the patient was at home when she had SOB, so she took Spiriva and did not get much relief. She also had some chest heaviness and a productive cough with clear phlegm. Her O2 Sat was at 93 on 2L O2 but after her nebulizer treatment her O2 Sat salty to 99 and her chest heaviness resolved. In the ED her SOB is a little better and she has no CP , but is coughing up clear phlegm. She also reports that she has been feeling hot and cold. At triage she rates her pain as a 0/10 in severity. She has a long Hx of COPD, and a Hx of CHF. She has been seeing Dr. Bonner, vp director of creative strategy , more often this year. She says that she still smokes 2 cigarettes a day. Chest x-ray impression: Hyperinflation, consistent with COPD, no active cardiopulmonary disease. Blood work without any significant abnormality except for WBCs of 11.4, sodium 134, chloride 93, calcium 11.5, CRP of 23 and BMP 140. In route by EMS the patient was given DuoNeb. In the ED course the patient was given additional DuoNeb and Solu-Medrol. ABG shows a pH of 7.39, PCO2 of 47, PCO2 223, and O2 sat is 100% in 3 L of oxygen. After the patient was given this multiple DuoNebs and Solu-Medrol the patients symptoms have improved. Ambulated the patient and the patients saturation To about 94 and 95 % and 2 L of oxygen. Therefore discussed my findings and test results with the patient and the need to follow-up with primary care physician. The patient agrees and she wants to go home. Patient is hemodynamically stable. - Diagnoses Provider Diagnoses: COPD exacerbation Discharge - Sign-Out/Discharge Documenting (check all that apply): Patient Departure - DC Patient Received Moderate/Deep Sedation with Procedure: No - Discharge Plan Condition: Stable Disposition: HOME Prescriptions: predniSONE TAB* [Deltasone 20 MG TAB*] 40 mg PO DAILY #8 tab Patient Education Materials: COPD (Chronic Obstructive Pulmonary Disease) (DC) Referrals: Robbie Alexander MD [Primary Care Provider] - (2-3 days) Additional Instructions: FOLLOW UP WITH YOUR PRIMARY CARE PROVIDER WITHIN 2-3 DAYS. RETURN TO THE ED FOR ANY WORSENING OR NEW SYMPTOMS. - Billing Disposition and Condition Condition: STABLE Disposition: Home - Attestation Statements Document Initiated by Terrellibjorge: Yes Documenting Scribe: Howard Babcock Provider For Whom Nohemi is Documenting (Include Credential): Mushtaq Mendoza MD Scribe Attestation: Howard Del Rio, scribed for Mushtaq Mendoza MD on 09/10/18 at 1047. Scribe Documentation Reviewed: Yes Provider Attestation: The documentation as recorded by the Howard spence accurately reflects the service I personally performed and the decisions made by Mushtaq william MD Status of Scribe Document: Viewed
[2018-09-09 11:59] LABS: ABS Basophils 0.2 10^3/ul (0-0.2); ABS Eosinophils 0.5 10^3/ul (0-0.6); ABS Lymphocytes 1.2 10^3/ul (1.0-4.8); ABS Monocytes 1.2 10^3/ul (0-0.8); ABS Neutrophils 8.3 10^3/ul (1.5-7.7); Hematocrit 38 % (35-47); Hemoglobin 12.7 g/dL (12.0-16.0); Lymphocyte % 10.7 %; Mean Corpuscular HGB Conc 34 g/dL (31-36); Mean Corpuscular Hemoglobin 33 pg (27-31); Mean Corpuscular Volume 97 fL (80-97); Nucleated Red Blood Cells % 0.1; Platelet Count 338 10^3/uL (150-450); Red Cell Distribution Width 14 % (10-15); White Blood Count 11.4 10^3/uL (3.5-10.8)
[2018-09-09 12:17] LABS: Albumin 4.5 g/dL (3.2-5.2); Albumin/Globulin Ratio 1.5 (1-3); BUN/Creatinine Ratio 26.9 (8-20); C Reactive Protein 23.14 mg/L (<8.01); Calcium 11.5 mg/dL (8.6-10.3); EGFR African American 103.3 (>60); EGFR Non-African American 85.3 (>60); Total Bilirubin 0.9 mg/dL (0.2-1.0); Total Protein 7.5 g/dL (6.4-8.9)
[2018-09-09 12:20] LABS: Troponin I 0.01 ng/mL (<0.04)
[2018-09-09 12:22] LABS: CKMB ng/mL 11.4 ng/mL (0.6-6.3)
[2018-09-09 14:30] VITALS: BP 129/63
== END 2018-09-09 16:21 | disposition home or self-care (01) ==
LOC: ED 11:27
DX: J44.1 Chronic obstructive pulmonary disease with (acute) exacerbation (principal); I44.7 Left bundle-branch block, unspecified; R05 Cough; R68.83 Chills (without fever); I50.9 Heart failure, unspecified; I10 Essential (primary) hypertension; Z88.0 Allergy status to penicillin; Z91.040 Latex allergy status; F17.210 Nicotine dependence, cigarettes, uncomplicated
CPT/HCPCS: 36415; 71046; 80053; 82550; 82553; 82803; 83605; 83880; 84484; 85025; 86140; 87040; 93005; 96374; 99283; A9270-GY; J2930

== ENCOUNTER 2020-03-06 13:50 | Inpatient (IN) ==
[2020-03-06] MEDS ORDERED: Lidocaine PATCH 5% PATCH TRANSDERM ONE (14:20)
[2020-03-06 15:04] LABS: ABS Basophils 0.1 10^3/ul (0-0.2); ABS Eosinophils 0.1 10^3/ul (0-0.6); ABS Monocytes 0.8 10^3/ul (0-0.8); ABS Neutrophils 7.5 10^3/ul (1.5-7.7); Eosinophil % 0.6 %; Hematocrit 38 % (35-47); Hemoglobin 12.5 g/dL (12.0-16.0); Lymphocyte % 10.7 %; Mean Corpuscular HGB Conc 33 g/dL (31-36); Mean Corpuscular Hemoglobin 31 pg (27-31); Mean Corpuscular Volume 92 fL (80-97); Mean Platelet Volume 8.9 fL (7.4-10.4); Platelet Count 387 10^3/uL (150-450); Red Blood Count 4.08 10^6 /uL (3.70-4.87); Red Cell Distribution Width 13 % (10-15); White Blood Count 9.3 10^3/uL (3.5-10.8)
[2020-03-06 15:18] LABS: Urine Appearance Clear; Urine Bilirubin Negative (Negative); Urine Blood 1+ (Negative); Urine Color Yellow; Urine Glucose Negative (Negative); Urine Ketones Trace (Negative); Urine Nitrite Negative (Negative); Urine Protein 3+(>=500 mg/dL) (Negative); Urine Specific Gravity 1.013 (1.010-1.030); Urine Urobilinogen Negative (Negative)
[2020-03-06 15:22] LABS: Urine Bacteria Absent (Absent); Urine Red Blood Cell Trace(0-2/hpf) (Absent); Urine Squamous Epithelial Cell Present (Absent); Urine White Blood Cell Trace(0-5/hpf) (Absent)
[2020-03-06 15:25] LABS: Troponin I 0.04 ng/mL (<0.03)
[2020-03-06 15:29] LABS: ALT 9 U/L (7-52); AST 16 U/L (13-39); Albumin 4.1 g/dL (3.2-5.2); Albumin/Globulin Ratio 1.4 (1-3); Alkaline Phosphatase 66 U/L (34-104); Anion Gap 10 mmol/L (2-11); BUN/Creatinine Ratio 22.7 (8-20); Blood Urea Nitrogen 15 mg/dL (6-24); C Reactive Protein 66.94 mg/L (<8.01); CO2 Carbon Dioxide 35 mmol/L (22-32); Calcium 10.7 mg/dL (8.6-10.3); Chloride 95 mmol/L (101-111); EGFR African American 104.8 (>60); EGFR Non-African American 86.6 (>60); Glucose 100 mg/dL (70-100); Potassium 3.7 mmol/L (3.5-5.0); Sodium 140 mmol/L (135-145); Total Protein 7.1 g/dL (6.4-8.9)
[2020-03-06] MEDS ORDERED: Iohexol 350 (CONTRAST) 500 ML MDV IV ONE (15:34)
[2020-03-06] MEDS ORDERED: HYDROcodone/ACETAMIN 5/325 mg TAB PO ONE ×2 (18:10→19:35)
[2020-03-06 18:49] LABS: Troponin I 0.04 ng/mL (<0.03)
[2020-03-06] MEDS ORDERED: Dexamethasone IV 4 MG/ML VIAL 1 ml VIAL IV SLOW PU ONE (18:55)
[2020-03-06] MEDS ORDERED: Lidocaine Patch REMOVE PATCH PATCH OFF SCH (21:00)
[2020-03-06] MEDS ORDERED: Morphine 2 MG/ML SYRINGE IV ONE (22:00)
[2020-03-06] MEDS ORDERED: Albuterol 2.5mg/3 ml (0.083%) NEB.SOLN INH PRN (23:01)
[2020-03-06] MEDS ORDERED: Albuterol HFA INHALER 8 gm MDI INH PRN (23:01)
[2020-03-06] MEDS ORDERED: Polyethylene Glycol 3350 17 GM PACKET PO PRN (23:04)
[2020-03-07 01:20] LABS: Troponin I 0.03 ng/mL (<0.03)
[2020-03-07] MEDS: oxyCODONE/Acetamin 5/325 mg TAB PO PRN ×4 (01:23→17:25)
[2020-03-07 02:58] LABS: Troponin I 0.03 ng/mL (<0.03)
[2020-03-07] MEDS ORDERED: Morphine 2 MG/ML SYRINGE IV ONE (03:26)
[2020-03-07 06:18] LABS: ABS Lymphocytes 0.4 10^3/ul (1.0-4.8); ABS Monocytes 0.2 10^3/ul (0-0.8); ABS Neutrophils 4.9 10^3/ul (1.5-7.7); Hematocrit 33 % (35-47); Hemoglobin 11.1 g/dL (12.0-16.0); Lymphocyte % 7.3 %; Mean Corpuscular HGB Conc 34 g/dL (31-36); Mean Corpuscular Hemoglobin 31 pg (27-31); Mean Corpuscular Volume 92 fL (80-97); Mean Platelet Volume 8.3 fL (7.4-10.4); Platelet Count 346 10^3/uL (150-450); Red Blood Count 3.61 10^6 /uL (3.70-4.87); Red Cell Distribution Width 13 % (10-15); White Blood Count 5.5 10^3/uL (3.5-10.8)
[2020-03-07 06:21] LABS: INR 0.92 (0.82-1.09)
[2020-03-07 06:33] LABS: BUN/Creatinine Ratio 24.6 (8-20); Calcium 10.1 mg/dL (8.6-10.3); EGFR African American 99.6 (>60); EGFR Non-African American 82.3 (>60); HDL Cholesterol 96.9 mg/dL; Potassium 4.2 mmol/L (3.5-5.0)
[2020-03-07] MEDS: Lidocaine PATCH 5% PATCH TRANSDERM SCH (09:07)
[2020-03-07] MEDS: Cholecalciferol (VIT D3) 1,000 unit TAB PO SCH (09:14)
[2020-03-07] MEDS: Albuterol HFA INHALER 8 gm MDI INH PRN ×2 (09:37→14:25)
[2020-03-07] MEDS: Mometasone/Formoter 200/5 MDI INH SCH ×2 (09:37→20:37)
[2020-03-07] MEDS: Lidocaine Patch REMOVE PATCH PATCH OFF SCH (20:18)
[2020-03-07] MEDS ORDERED: Lidocaine Patch REMOVE PATCH PATCH OFF SCH (21:00)
[2020-03-08] MEDS: oxyCODONE/Acetamin 5/325 mg TAB PO PRN ×5 (00:17→22:26)
[2020-03-08 06:13] LABS: Hematocrit 33 % (35-47); Hemoglobin 10.8 g/dL (12.0-16.0); Mean Corpuscular HGB Conc 33 g/dL (31-36); Mean Corpuscular Hemoglobin 31 pg (27-31); Mean Corpuscular Volume 93 fL (80-97); Mean Platelet Volume 8.6 fL (7.4-10.4); Platelet Count 364 10^3/uL (150-450); Red Blood Count 3.53 10^6 /uL (3.70-4.87); Red Cell Distribution Width 14 % (10-15); White Blood Count 8.8 10^3/uL (3.5-10.8)
[2020-03-08 06:32] LABS: BUN/Creatinine Ratio 25.7 (8-20); Calcium 10.3 mg/dL (8.6-10.3); EGFR African American 91.8 (>60); EGFR Non-African American 75.9 (>60); Magnesium 1.8 mg/dL (1.9-2.7)
[2020-03-08] MEDS: Lidocaine PATCH 5% PATCH TRANSDERM SCH (08:17)
[2020-03-08] MEDS: Cholecalciferol (VIT D3) 1,000 unit TAB PO SCH (08:18)
[2020-03-08] MEDS: Mometasone/Formoter 200/5 MDI INH SCH ×2 (10:58→20:19)
[2020-03-08] MEDS: Albuterol HFA INHALER 8 gm MDI INH PRN (20:21)
[2020-03-08] MEDS: Lidocaine Patch REMOVE PATCH PATCH OFF SCH (22:32)
[2020-03-09] MEDS: oxyCODONE/Acetamin 5/325 mg TAB PO PRN ×4 (02:53→23:38)
[2020-03-09] MEDS: Mometasone/Formoter 200/5 MDI INH SCH ×2 (08:51→19:54)
[2020-03-09 10:21] LABS: Vitamin D Total 25(OH) 44.1 ng/mL (20-50)
[2020-03-09] MEDS: Lidocaine PATCH 5% PATCH TRANSDERM SCH (10:40)
[2020-03-09] MEDS: Cholecalciferol (VIT D3) 1,000 unit TAB PO SCH (10:41)
[2020-03-09] MEDS: Albuterol HFA INHALER 8 gm MDI INH PRN ×2 (14:12→19:53)
[2020-03-09] MEDS: Lidocaine Patch REMOVE PATCH PATCH OFF SCH (21:00)
[2020-03-10] MEDS: Albuterol HFA INHALER 8 gm MDI INH PRN ×2 (06:32→20:04)
[2020-03-10] MEDS: oxyCODONE/Acetamin 5/325 mg TAB PO PRN ×3 (06:56→21:31)
[2020-03-10] MEDS: Lidocaine PATCH 5% PATCH TRANSDERM SCH (08:35)
[2020-03-10] MEDS: Cholecalciferol (VIT D3) 1,000 unit TAB PO SCH (08:35)
[2020-03-10] MEDS: Mometasone/Formoter 200/5 MDI INH SCH ×2 (09:35→20:04)
[2020-03-10] MEDS: Lidocaine Patch REMOVE PATCH PATCH OFF SCH (21:33)
[2020-03-11] MEDS: oxyCODONE/Acetamin 5/325 mg TAB PO PRN ×4 (05:32→20:33)
[2020-03-11 08:55] LABS: ABS Basophils 0.1 10^3/ul (0-0.2); ABS Eosinophils 0.4 10^3/ul (0-0.6); ABS Lymphocytes 1.5 10^3/ul (1.0-4.8); ABS Monocytes 0.8 10^3/ul (0-0.8); ABS Neutrophils 7.4 10^3/ul (1.5-7.7); Eosinophil % 4.3 %; Hematocrit 35 % (35-47); Hemoglobin 11.6 g/dL (12.0-16.0); Lymphocyte % 14.7 %; Mean Corpuscular HGB Conc 33 g/dL (31-36); Mean Corpuscular Hemoglobin 31 pg (27-31); Mean Corpuscular Volume 93 fL (80-97); Mean Platelet Volume 8.4 fL (7.4-10.4); Platelet Count 403 10^3/uL (150-450); Red Cell Distribution Width 13 % (10-15); White Blood Count 10.2 10^3/uL (3.5-10.8)
[2020-03-11 09:16] LABS: BUN/Creatinine Ratio 24.3 (8-20); Calcium 10.2 mg/dL (8.6-10.3); EGFR African American 91.8 (>60); EGFR Non-African American 75.9 (>60); Magnesium 2.1 mg/dL (1.9-2.7); Potassium 4.3 mmol/L (3.5-5.0)
[2020-03-11] MEDS: Albuterol HFA INHALER 8 gm MDI INH PRN (09:16)
[2020-03-11] MEDS: Mometasone/Formoter 200/5 MDI INH SCH ×2 (09:16→21:03)
[2020-03-11 09:33] LABS: Ferritin 109.8 ng/mL (11-307)
[2020-03-11] MEDS: Cholecalciferol (VIT D3) 1,000 unit TAB PO SCH (10:18)
[2020-03-11] MEDS: Lidocaine PATCH 5% PATCH TRANSDERM SCH (10:20)
[2020-03-11] MEDS: Lidocaine Patch REMOVE PATCH PATCH OFF SCH (22:11)
[2020-03-12] MEDS: Mometasone/Formoter 200/5 MDI INH SCH ×2 (08:34→20:23)
[2020-03-12] MEDS: Albuterol HFA INHALER 8 gm MDI INH PRN ×2 (08:34→20:24)
[2020-03-12] MEDS: Lidocaine PATCH 5% PATCH TRANSDERM SCH (08:50)
[2020-03-12 08:51] LABS: BUN/Creatinine Ratio 22.1 (8-20); Calcium 10.3 mg/dL (8.6-10.3); EGFR African American 87.7 (>60); EGFR Non-African American 72.5 (>60); Potassium 4.5 mmol/L (3.5-5.0)
[2020-03-12] MEDS: oxyCODONE/Acetamin 5/325 mg TAB PO PRN ×3 (08:51→21:34)
[2020-03-12] MEDS: Cholecalciferol (VIT D3) 1,000 unit TAB PO SCH (08:51)
[2020-03-12] MEDS: Lidocaine Patch REMOVE PATCH PATCH OFF SCH (21:07)
[2020-03-13] MEDS: oxyCODONE/Acetamin 5/325 mg TAB PO PRN ×2 (03:47→12:09)
[2020-03-13] MEDS: Albuterol HFA INHALER 8 gm MDI INH PRN (08:42)
[2020-03-13] MEDS: Mometasone/Formoter 200/5 MDI INH SCH ×2 (08:42→20:10)
[2020-03-13] MEDS: Lidocaine PATCH 5% PATCH TRANSDERM SCH (09:41)
[2020-03-13] MEDS: Cholecalciferol (VIT D3) 1,000 unit TAB PO SCH (09:41)
[2020-03-13] MEDS: Lidocaine Patch REMOVE PATCH PATCH OFF SCH (20:31)
[2020-03-14] MEDS: oxyCODONE/Acetamin 5/325 mg TAB PO PRN ×3 (00:09→22:40)
[2020-03-14 06:25] LABS: BUN/Creatinine Ratio 20.9 (8-20); Calcium 9.7 mg/dL (8.6-10.3); EGFR African American 72.3 (>60); EGFR Non-African American 59.8 (>60); Potassium 4.3 mmol/L (3.5-5.0)
[2020-03-14] MEDS: Mometasone/Formoter 200/5 MDI INH SCH ×2 (09:13→20:29)
[2020-03-14] MEDS: Cholecalciferol (VIT D3) 1,000 unit TAB PO SCH (09:56)
[2020-03-14] MEDS: Lidocaine PATCH 5% PATCH TRANSDERM SCH (09:57)
[2020-03-14] MEDS: Lidocaine Patch REMOVE PATCH PATCH OFF SCH (20:37)
[2020-03-15] MEDS: Lidocaine PATCH 5% PATCH TRANSDERM SCH (08:01)
[2020-03-15] MEDS: Cholecalciferol (VIT D3) 1,000 unit TAB PO SCH (08:02)
[2020-03-15] MEDS: oxyCODONE/Acetamin 5/325 mg TAB PO PRN ×2 (08:10→17:36)
[2020-03-15] MEDS: Mometasone/Formoter 200/5 MDI INH SCH ×2 (10:18→20:34)
[2020-03-15 16:48] LABS: BUN/Creatinine Ratio 20.4 (8-20); Calcium 9.9 mg/dL (8.6-10.3); EGFR African American 62.7 (>60); EGFR Non-African American 51.8 (>60); Potassium 4.6 mmol/L (3.5-5.0)
[2020-03-15] MEDS ORDERED: Zoledronic Acid 3 MG in NS 0.9% 100 ml BAG 100 ML IVPB ONE (17:30)
[2020-03-15] MEDS: Lidocaine Patch REMOVE PATCH PATCH OFF SCH (20:21)
[2020-03-15] MEDS: Albuterol HFA INHALER 8 gm MDI INH PRN (20:34)
[2020-03-16] MEDS: oxyCODONE/Acetamin 5/325 mg TAB PO PRN ×2 (02:01→08:12)
[2020-03-16] MEDS: Mometasone/Formoter 200/5 MDI INH SCH (08:06)
[2020-03-16] MEDS: Lidocaine PATCH 5% PATCH TRANSDERM SCH (08:09)
[2020-03-16] MEDS: Cholecalciferol (VIT D3) 1,000 unit TAB PO SCH (10:18)
[2020-03-16 12:30] VITALS: BP 137/46
== END 2020-03-16 15:15 | disposition home or self-care (01) | DRG 542 ==
LOC: MEDTELE 13:50 → ED 13:50 → MEDTELE 03-07 01:00 → MED 03-08 04:15
PROVIDERS: ADMIT Internal Medicine; ATTEND Internal Medicine

== ENCOUNTER 2020-04-05 05:35 | Inpatient (IN) ==
[2020-04-05] MEDS ORDERED: methylPREDNISolone 125 mg 2 ML VIAL IV ONE (05:39)
[2020-04-05 06:50] LABS: ABS Basophils 0.1 10^3/ul (0-0.2); ABS Eosinophils 0.1 10^3/ul (0-0.6); ABS Lymphocytes 0.9 10^3/ul (1.0-4.8); ABS Monocytes 0.6 10^3/ul (0-0.8); ABS Neutrophils 6.7 10^3/ul (1.5-7.7); Eosinophil % 0.9 %; Hematocrit 33 % (35-47); Hemoglobin 10.6 g/dL (12.0-16.0); Mean Corpuscular HGB Conc 33 g/dL (31-36); Mean Corpuscular Hemoglobin 31 pg (27-31); Mean Corpuscular Volume 94 fL (80-97); Mean Platelet Volume 8.3 fL (7.4-10.4); Platelet Count 411 10^3/uL (150-450); Red Blood Count 3.47 10^6 /uL (3.70-4.87); Red Cell Distribution Width 15 % (10-15); White Blood Count 8.4 10^3/uL (3.5-10.8)
[2020-04-05 06:51] LABS: INR 0.92 (0.82-1.09)
[2020-04-05 07:12] LABS: Influenza A Molecular Negative (Negative); Influenza B Molecular Negative (Negative)
[2020-04-05 07:15] LABS: ALT 7 U/L (7-52); Albumin 3.3 g/dL (3.2-5.2); Albumin/Globulin Ratio 1.1 (1-3); Alkaline Phosphatase 87 U/L (34-104); BUN/Creatinine Ratio 14.8 (8-20); Blood Urea Nitrogen 13 mg/dL (6-24); C Reactive Protein 42.04 mg/L (<8.01); CO2 Carbon Dioxide 31 mmol/L (22-32); Calcium 8.3 mg/dL (8.6-10.3); Chloride 102 mmol/L (101-111); EGFR African American 75.2 (>60); EGFR Non-African American 62.1 (>60); Globulin 2.9 g/dL (2-4); Glucose 127 mg/dL (70-100); Sodium 139 mmol/L (135-145); Total Protein 6.2 g/dL (6.4-8.9)
[2020-04-05 07:27] LABS: Anion Gap 6 mmol/L (2-11); Troponin I 0.18 ng/mL (<0.03)
[2020-04-05] MEDS ORDERED: Cefepime 1 GM in NS 0.9% 50 ML 50 ML IVPB ONE (08:46)
[2020-04-05] MEDS ORDERED: NS 0.9% 50 ML 50 ML ONE (09:01)
[2020-04-05] MEDS: Cefepime 1 GM in Dextrose 1 GM/50 ML BAG IV ONE ×2 (09:46→09:47)
[2020-04-05] MEDS ORDERED: Furosemide 20 mg/2 ml IV VIAL IV SLOW PU ONE (11:03)
[2020-04-05] MEDS ORDERED: Albuterol HFA INHALER 8 gm MDI INH PRN (11:16)
[2020-04-05 12:12] LABS: Troponin I 0.54 ng/mL (<0.03)
[2020-04-05] MEDS ORDERED: Heparin DRIP 25,000 UNITS BAG 25,000 UNITS/500 ML BAG IV SCH (12:30)
[2020-04-05] MEDS: Mometasone/Formoter 200/5 MDI INH SCH ×2 (12:35→21:08)
[2020-04-05] MEDS ORDERED: Iodixanol (CONTRAST) 320 MG/ML 100 ML SDV IV ONE (12:41)
[2020-04-05] MEDS ORDERED: Heparin 5000 UNITS/ML 1 mL VIAL IV SCH (13:00)
[2020-04-05 13:51] LABS: Urine Appearance Cloudy; Urine Bilirubin Negative (Negative); Urine Blood Negative (Negative); Urine Color Yellow; Urine Glucose Negative (Negative); Urine Ketones Trace (Negative); Urine Nitrite Negative (Negative); Urine Protein 2+(100 mg/dL) (Negative); Urine Specific Gravity 1.019 (1.010-1.030); Urine Urobilinogen Negative (Negative)
[2020-04-05] MEDS ORDERED: Lorazepam PYXIS KEY PRN (13:51)
[2020-04-05] MEDS ORDERED: LORazepam 2 mg VIAL 1 ml ONE (13:56)
[2020-04-05] MEDS ORDERED: Heparin 5000 UNITS/ML 1 mL VIAL SUBCUT SCH (14:00)
[2020-04-05 14:17] LABS: Urine Bacteria Absent (Absent); Urine Red Blood Cell Trace(0-2/hpf) (Absent); Urine Squamous Epithelial Cell Present (Absent); Urine Waxy Casts Present (Absent); Urine White Blood Cell 1+(6-10/hpf) (Absent); Urine White Blood Cell Casts Present (Absent)
[2020-04-05 14:29] LABS: ABS Lymphocytes 0.2 10^3/ul (1.0-4.8); ABS Neutrophils 7.1 10^3/ul (1.5-7.7); Hematocrit 36 % (35-47); Hemoglobin 11.5 g/dL (12.0-16.0); Mean Corpuscular HGB Conc 32 g/dL (31-36); Mean Corpuscular Hemoglobin 30 pg (27-31); Mean Corpuscular Volume 94 fL (80-97); Mean Platelet Volume 8.1 fL (7.4-10.4); Platelet Count 482 10^3/uL (150-450); Red Cell Distribution Width 15 % (10-15); White Blood Count 7.4 10^3/uL (3.5-10.8)
[2020-04-05] MEDS: LORazepam 2 mg VIAL 1 ml IV PUSH PRN (14:45)
[2020-04-05 14:52] LABS: AST Redraw 24 U/L (13-39); Blood Urea Nitrogen 18 mg/dL (6-24); EGFR African American 72.3 (>60); EGFR Non-African American 59.8 (>60); Potassium Redraw 4.6 mmol/L (3.5-5.0)
[2020-04-05 14:55] LABS: Troponin I 1.06 ng/mL (<0.03)
[2020-04-05 15:26] LABS: TSH Ultra Thyroid Stim Horm 0.36 mcIU/mL (0.34-5.60)
[2020-04-05] MEDS: DOXYcycline 100 MG in NS 0.9% 250 ml 250 ML IVPB SCH (15:29)
[2020-04-05] MEDS: Nitroglycerin 0.3 mg TAB SL PRN (15:52)
[2020-04-05] MEDS: Aspirin EC 81 mg TAB.EC (enteric coated) PO SCH (17:56)
[2020-04-05] MEDS: Heparin 5000 UNITS/ML 1 mL VIAL SUBCUT SCH (21:31)
[2020-04-05] MEDS: CMC:Lovastatin 10 mg TAB (NF) PO SCH (21:31)
[2020-04-06] MEDS: DOXYcycline 100 MG in NS 0.9% 250 ml 250 ML IVPB SCH ×2 (00:18→12:03)
[2020-04-06 00:46] LABS: Troponin I 1.11 ng/mL (<0.03)
[2020-04-06] MEDS: Nitroglycerin 0.3 mg TAB SL PRN (02:57)
[2020-04-06] MEDS: Heparin 5000 UNITS/ML 1 mL VIAL SUBCUT SCH ×3 (05:51→21:19)
[2020-04-06 06:36] LABS: BUN/Creatinine Ratio 25.6 (8-20); Blood Urea Nitrogen 22 mg/dL (6-24); C Reactive Protein 24.86 mg/L (<8.01); CO2 Carbon Dioxide 30 mmol/L (22-32); Calcium 7.6 mg/dL (8.6-10.3); Chloride 104 mmol/L (101-111); EGFR African American 77.2 (>60); EGFR Non-African American 63.8 (>60); Glucose 116 mg/dL (70-100); Sodium 141 mmol/L (135-145)
[2020-04-06 06:41] LABS: ABS Eosinophils 0.1 10^3/ul (0-0.6); ABS Lymphocytes 0.7 10^3/ul (1.0-4.8); ABS Monocytes 0.8 10^3/ul (0-0.8); ABS Neutrophils 7.8 10^3/ul (1.5-7.7); Eosinophil % 0.8 %; Hematocrit 31 % (35-47); Hemoglobin 9.8 g/dL (12.0-16.0); Lymphocyte % 7.7 %; Mean Corpuscular HGB Conc 32 g/dL (31-36); Mean Corpuscular Hemoglobin 31 pg (27-31); Mean Corpuscular Volume 96 fL (80-97); Mean Platelet Volume 8.8 fL (7.4-10.4); Nucleated Red Blood Cells % 0.2; Platelet Count 416 10^3/uL (150-450); Red Cell Distribution Width 15 % (10-15); White Blood Count 9.4 10^3/uL (3.5-10.8)
[2020-04-06 07:01] LABS: Anion Gap 7 mmol/L (2-11)
[2020-04-06] MEDS: Aspirin EC 81 mg TAB.EC (enteric coated) PO SCH (07:11)
[2020-04-06] MEDS: Mometasone/Formoter 200/5 MDI INH SCH ×3 (07:45→19:42)
[2020-04-06] MEDS: LORazepam 2 mg VIAL 1 ml IV PUSH PRN (10:09)
[2020-04-06] MEDS: Albuterol HFA INHALER 8 gm MDI INH SCH ×2 (12:34→19:42)
[2020-04-06] MEDS: CMC:Lovastatin 10 mg TAB (NF) PO SCH (21:13)
[2020-04-07] MEDS: DOXYcycline 100 MG in NS 0.9% 250 ml 250 ML IVPB SCH ×3 (00:19→23:48)
[2020-04-07] MEDS: Albuterol HFA INHALER 8 gm MDI INH SCH ×4 (01:10→19:26)
[2020-04-07] MEDS: Heparin 5000 UNITS/ML 1 mL VIAL SUBCUT SCH ×3 (05:36→22:31)
[2020-04-07] MEDS: Mometasone/Formoter 200/5 MDI INH SCH ×2 (07:21→19:26)
[2020-04-07] MEDS ORDERED: Morphine 2 MG/ML SYRINGE IV PRN (07:35)
[2020-04-07] MEDS ORDERED: Furosemide 40 mg/4 ml IV VIAL IV ONE (07:45)
[2020-04-07] MEDS: Aspirin EC 81 mg TAB.EC (enteric coated) PO SCH (09:02)
[2020-04-07] MEDS ORDERED: Polyethylene Glycol 3350 17 GM PACKET PO PRN (18:59)
[2020-04-07] MEDS: CMC:Lovastatin 10 mg TAB (NF) PO SCH (19:40)
[2020-04-07] MEDS: Lidocaine Patch REMOVE PATCH PATCH OFF SCH ×2 (19:41→19:43)
[2020-04-07] MEDS: Morphine 2 MG/ML SYRINGE IV PRN (23:48)
[2020-04-08] MEDS: Albuterol HFA INHALER 8 gm MDI INH SCH ×4 (01:26→19:32)
[2020-04-08] MEDS: Morphine 2 MG/ML SYRINGE IV PRN ×3 (05:26→19:43)
[2020-04-08] MEDS: Heparin 5000 UNITS/ML 1 mL VIAL SUBCUT SCH ×3 (05:26→21:00)
[2020-04-08 05:55] LABS: ABS Lymphocytes 0.7 10^3/ul (1.0-4.8); ABS Monocytes 0.8 10^3/ul (0-0.8); ABS Neutrophils 9.2 10^3/ul (1.5-7.7); Hematocrit 30 % (35-47); Hemoglobin 9.7 g/dL (12.0-16.0); Lymphocyte % 6.6 %; Mean Corpuscular HGB Conc 32 g/dL (31-36); Mean Corpuscular Hemoglobin 30 pg (27-31); Mean Corpuscular Volume 95 fL (80-97); Mean Platelet Volume 7.8 fL (7.4-10.4); Platelet Count 402 10^3/uL (150-450); Red Cell Distribution Width 15 % (10-15); White Blood Count 10.7 10^3/uL (3.5-10.8)
[2020-04-08 06:13] LABS: BUN/Creatinine Ratio 27.2 (8-20); Calcium 8.2 mg/dL (8.6-10.3); EGFR African American 71.4 (>60); Potassium 4.8 mmol/L (3.5-5.0)
[2020-04-08] MEDS: Mometasone/Formoter 200/5 MDI INH SCH ×2 (07:08→19:29)
[2020-04-08] MEDS: Aspirin EC 81 mg TAB.EC (enteric coated) PO SCH (08:22)
[2020-04-08] MEDS: Lidocaine PATCH 5% PATCH TRANSDERM SCH (08:23)
[2020-04-08] MEDS: Calcitonin NASAL(NF) 200 UNITS/SPRAY NASAL.SPR ALT NARE SCH (08:23)
[2020-04-08] MEDS: DOXYcycline 100 MG in NS 0.9% 250 ml 250 ML IVPB SCH (13:27)
[2020-04-08] MEDS: Nitroglycerin 0.3 mg TAB SL PRN (15:12)
[2020-04-08] MEDS: Lidocaine Patch REMOVE PATCH PATCH OFF SCH (21:01)
[2020-04-08] MEDS: CMC:Lovastatin 10 mg TAB (NF) PO SCH (21:01)
[2020-04-09] MEDS: DOXYcycline 100 MG in NS 0.9% 250 ml 250 ML IVPB SCH ×3 (00:10→23:52)
[2020-04-09] MEDS: Morphine 2 MG/ML SYRINGE IV PRN ×3 (00:14→18:08)
[2020-04-09] MEDS: Albuterol HFA INHALER 8 gm MDI INH SCH ×4 (00:54→19:38)
[2020-04-09 06:12] LABS: BUN/Creatinine Ratio 30.7 (8-20); Calcium 8.3 mg/dL (8.6-10.3); EGFR African American 75.2 (>60); EGFR Non-African American 62.1 (>60)
[2020-04-09 06:13] LABS: Potassium 5.1 mmol/L (3.5-5.0)
[2020-04-09] MEDS: Heparin 5000 UNITS/ML 1 mL VIAL SUBCUT SCH ×3 (06:24→20:14)
[2020-04-09] MEDS: Mometasone/Formoter 200/5 MDI INH SCH ×3 (07:28→19:48)
[2020-04-09] MEDS: Aspirin EC 81 mg TAB.EC (enteric coated) PO SCH (08:23)
[2020-04-09] MEDS: Calcitonin NASAL(NF) 200 UNITS/SPRAY NASAL.SPR ALT NARE SCH (08:24)
[2020-04-09] MEDS: Lidocaine PATCH 5% PATCH TRANSDERM SCH (08:24)
[2020-04-09] MEDS: Nitroglycerin 0.3 mg TAB SL PRN ×2 (18:27→18:35)
[2020-04-09] MEDS: CMC:Lovastatin 10 mg TAB (NF) PO SCH (20:13)
[2020-04-09] MEDS: Lidocaine Patch REMOVE PATCH PATCH OFF SCH (20:14)
[2020-04-09] MEDS ORDERED: Morphine 2 MG/ML SYRINGE IV PRN (20:39)
[2020-04-10] MEDS: Albuterol HFA INHALER 8 gm MDI INH SCH ×4 (02:26→19:11)
[2020-04-10] MEDS: Morphine 2 MG/ML SYRINGE IV SCH ×2 (05:42→17:56)
[2020-04-10] MEDS: Heparin 5000 UNITS/ML 1 mL VIAL SUBCUT SCH ×3 (05:42→20:47)
[2020-04-10 07:42] LABS: Hematocrit 34 % (35-47); Hemoglobin 10.6 g/dL (12.0-16.0); Mean Corpuscular HGB Conc 31 g/dL (31-36); Mean Corpuscular Hemoglobin 30 pg (27-31); Mean Corpuscular Volume 96 fL (80-97); Mean Platelet Volume 8.2 fL (7.4-10.4); Platelet Count 419 10^3/uL (150-450); Red Cell Distribution Width 16 % (10-15); White Blood Count 18.6 10^3/uL (3.5-10.8)
[2020-04-10] MEDS: Mometasone/Formoter 200/5 MDI INH SCH ×2 (07:46→19:11)
[2020-04-10 07:55] LABS: Calcium 8.8 mg/dL (8.6-10.3); Magnesium 1.7 mg/dL (1.9-2.7)
[2020-04-10 08:00] LABS: Potassium 5.3 mmol/L (3.5-5.0)
[2020-04-10 08:01] LABS: BUN/Creatinine Ratio 36.5 (8-20); EGFR African American 78.3 (>60); EGFR Non-African American 64.7 (>60)
[2020-04-10] MEDS ORDERED: Magnesium Sulfate 2 gm BAG 2 GM/50 ML BAG IVPB ONE (08:25)
[2020-04-10] MEDS: Aspirin EC 81 mg TAB.EC (enteric coated) PO SCH (09:54)
[2020-04-10] MEDS: Lidocaine PATCH 5% PATCH TRANSDERM SCH (10:17)
[2020-04-10] MEDS ORDERED: Furosemide 20 mg/2 ml IV VIAL IV ONE (11:15)
[2020-04-10] MEDS ORDERED: Sodium Polystyrene ORAL.SUSP 15 GM/60 ML BTL PO ONE (11:22)
[2020-04-10] MEDS: Calcitonin NASAL(NF) 200 UNITS/SPRAY NASAL.SPR ALT NARE SCH (11:59)
[2020-04-10] MEDS ORDERED: Amoxicillin/Clavul 500/125 TAB (Augmentin 500 mg tab) PO SCH (12:00)
[2020-04-10 12:21] LABS: Urine Appearance Cloudy; Urine Bilirubin Negative (Negative); Urine Blood Negative (Negative); Urine Color Yellow; Urine Glucose Negative (Negative); Urine Ketones Negative (Negative); Urine Nitrite Negative (Negative); Urine Protein 1+(30 mg/dL) (Negative); Urine Specific Gravity 1.015 (1.010-1.030); Urine Urobilinogen Negative (Negative)
[2020-04-10 12:35] LABS: Urine Bacteria Absent (Absent); Urine Red Blood Cell 1+(3-5/hpf) (Absent); Urine White Blood Cell Trace(0-5/hpf) (Absent)
[2020-04-10] MEDS: CMC:Lovastatin 10 mg TAB (NF) PO SCH (20:46)
[2020-04-10] MEDS: Lidocaine Patch REMOVE PATCH PATCH OFF SCH (20:56)
[2020-04-11] MEDS: Albuterol HFA INHALER 8 gm MDI INH SCH ×4 (01:16→19:37)
[2020-04-11] MEDS: Morphine 2 MG/ML SYRINGE IV SCH (05:10)
[2020-04-11] MEDS: Heparin 5000 UNITS/ML 1 mL VIAL SUBCUT SCH ×3 (05:36→21:18)
[2020-04-11] MEDS: Mometasone/Formoter 200/5 MDI INH SCH ×2 (07:21→19:38)
[2020-04-11] MEDS: Aspirin EC 81 mg TAB.EC (enteric coated) PO SCH (09:31)
[2020-04-11] MEDS: Lidocaine PATCH 5% PATCH TRANSDERM SCH (09:31)
[2020-04-11] MEDS: Calcitonin NASAL(NF) 200 UNITS/SPRAY NASAL.SPR ALT NARE SCH (09:32)
[2020-04-11] MEDS ORDERED: Morphine 2 MG/ML SYRINGE IV SCH (14:00)
[2020-04-11] MEDS ORDERED: Morphine ORAL.SOLN 10 mg 2 mg/ml UDC 5 ml (10 mg) PO SCH (17:00)
[2020-04-11] MEDS: CMC:Lovastatin 10 mg TAB (NF) PO SCH (21:19)
[2020-04-11] MEDS: Lidocaine Patch REMOVE PATCH PATCH OFF SCH (21:20)
[2020-04-12] MEDS: Morphine ORAL.SOLN 10 mg 2 mg/ml UDC 5 ml (10 mg) PO SCH ×3 (00:59→16:04)
[2020-04-12] MEDS: Albuterol HFA INHALER 8 gm MDI INH SCH ×4 (01:47→19:11)
[2020-04-12] MEDS: Heparin 5000 UNITS/ML 1 mL VIAL SUBCUT SCH ×3 (05:47→20:21)
[2020-04-12] MEDS: Mometasone/Formoter 200/5 MDI INH SCH ×2 (08:10→19:11)
[2020-04-12] MEDS: Aspirin EC 81 mg TAB.EC (enteric coated) PO SCH (09:52)
[2020-04-12] MEDS: Calcitonin NASAL(NF) 200 UNITS/SPRAY NASAL.SPR ALT NARE SCH (09:53)
[2020-04-12] MEDS: Lidocaine PATCH 5% PATCH TRANSDERM SCH (11:57)
[2020-04-12] MEDS: CMC:Lovastatin 10 mg TAB (NF) PO SCH (20:20)
[2020-04-12] MEDS: Lidocaine Patch REMOVE PATCH PATCH OFF SCH (23:20)
[2020-04-13] MEDS: Morphine ORAL.SOLN 10 mg 2 mg/ml UDC 5 ml (10 mg) PO SCH (00:20)
[2020-04-13] MEDS: Albuterol HFA INHALER 8 gm MDI INH SCH ×2 (01:21→07:47)
[2020-04-13] MEDS: Mometasone/Formoter 200/5 MDI INH SCH (07:48)
[2020-04-13 07:57] VITALS: BP 133/43
== END 2020-04-13 08:45 | disposition expired ==
LOC: ED 05:35 → MED 11:05
PROVIDERS: ADMIT Internal Medicine; ATTEND Internal Medicine